=== PATIENT | female | born 1945 | race Caucasian/White ===

== ENCOUNTER → 2018-07-13 14:40 | Outpatient (CLI) | payer MEDICARE, SELFPAY ==
[2018-07-13 11:10] VITALS: BMI 27.7
[2018-07-13 16:20] LABS: Mucous, Urine 0 SEEN /hpf (<or=2+); Red Blood Cells-Urine 0 SEEN /hpf (0-5)
[2018-07-13 17:38] LABS: Color, Urine Yellow (Yellow); Glucose, Dipstick Normal (Normal); Ketone-Dipstick 5 mg/dl (Negative); Leukocyte Esterase-Dipstick 500 /ul (Negative); Nitrite-Dipstick Negative (Negative); Occult Blood-Urine 25 /ul (Negative); Protein-Dipstick 30 mg/dl (Negative); Specific Gravity, Urine 1.025 (1.002-1.030); Urine Bilirubin Dipstick Negative (Negative); Urine Clarity Cloudy (Clear); Urine Urobilinogen Normal (Normal)
[2018-07-13 17:49] LABS: Bacteria 2+ /hpf (None Seen); Calcium Oxalate Crystals Ur RARE /hpf (<or=2+); Squamous Epithelial Cells - UA 5-10 SEEN /hpf (5-10); White Blood Cells >100 SEEN /hpf (0-5)
== END ==
PROVIDERS: Family Provider Internal Medicine; PCP Internal Medicine; Referring Provider Physician Assistant Medical; Visit Provider Physician Assistant Medical
DX: N39.0 Urinary tract infection, site not specified (principal); R30.0 Dysuria
CPT/HCPCS: 81001; 87077; 87086; 87088; 87186

== ENCOUNTER → 2020-03-01 | Outpatient (CLI) | payer MEDICARE, OTHER, SELFPAY ==
--- NOTE | 2020-03-01 | BRBX_PTH ---
PATIENT: ROWENA GUAMAN LOC: [facility] U#:[id number] AGE/SX: 75/F ROOM: RE03/01/[address]: Dr. Edenilson Abraham MD : 1945 BED: DIS: 03/01/2020 SPEC #: [id number] RECD: 03/01/20 13:21 STATUS: ALBERTO REQ #: [id number] SANGEETA: 03/01/20 00:[address]: Edenilson Abraham DEPT: SURGICAL PATHOLOGY RECD BY: Rajeev Sanabria ENTERED: 03/04/20 13:23 SP TYPE: BREAST BX OTHR DR: Dr. Jeniffer Snow MD Tissues: A - Right breast, NOS B - Left breast, NOS Procedures: Surgery Specimen Level IV HEADER OPERATION: Left breast biopsy x2 PRE-OP DIAGNOSIS: Abnormal left breast ultrasound TISSUE SUBMITTED: A - Left breast tissue at 3 o'clock, B - Left breast tissue at 12 o'clock FIXATION TIME: 75 hours MICROSCOPIC DIAGNOSIS A. Left breast, 3 o'clock, core biopsy: Invasive lobular carcinoma, nuclear grade 1 (0.9 cm in greatest length). Focal adenosis. See comment. B. Left breast, 12 o'clock, core biopsy: Invasive ductal carcinoma, nuclear grade 2 (0.5 cm in greatest length). See comment. SJ:kavon 03/05/20 SJ:kavon 03/29/20 COMMENT A & B. Immunohistochemistry ([id number]) supports the above diagnosis. ER/OH/Lyt5cri studies are being performed on sections of tumor and the results from this study will be reported separately ([id number]). MICROSCOPIC DESCRIPTION Slides are reviewed. GROSS DESCRIPTION A - Received in fixative is one container labeled with the patient's name and designated left breast biopsy 3 o'clock. The specimen consists of multiple elongated fragments of garcia-yellow fibroadipose tissue that in aggregate measure 1.5 x 0.5 x 0.1 cm. The entire specimen is submitted in one cassette. B - Received in fixative is one container labeled with the patient's name and designated left breast biopsy 12 o'clock. The specimen consists of multiple elongated fragments of garcia-yellow fibroadipose tissue mixed with blood clots that in aggregate measure 2.5 x 1.5 x 0.1 cm. The entire specimen is submitted in one cassette. / SJ:rg 03/04/20 TC:0 CPT: 26287 x2
--- NOTE | 2020-03-01 | IMM_PTH ---
PATIENT: ROWENA GUAMAN LOC: [facility] U#:[id number] AGE/SX: 75/F ROOM: RE03/01/[address]: Dr. Edenilson Abraham MD : 1945 BED: DIS: 03/01/2020 SPEC #: [id number] RECD: 03/05/20 13:35 STATUS: ALBERTO REQ #: [id number] SANGEETA: 03/01/20 00:[address]: Edenilson Abraham DEPT: IMMUNOHISTOCHEMISTRY RECD BY: Odette Marroquin ENTERED: 03/05/20 13:37 SP TYPE: IMMUNO OTHR DR: Dr. Jeniffer Snow MD Tissues: A - Left breast, NOS B - Left breast, NOS Procedures: CALPONIN-1 (add) CK5-6 (add) CK8 (add) E-CAD (add) HER2 KAMRAN (add) KI-67 (add) P53 (add) CT (add) P40 (add) ER (initial) PHYSICIAN & INSTITUTION [address] [address] SPECIMEN INFORMATION: Tissue Source: A - Left breast, 3 o'clock, biopsy, B - Left breast, 12 o'clock, biopsy Clinical Info: Abnormal left breast ultrasound Specimen Number: [id number] A & B CPT code: 09061 x2, 26982 x12, 96817 x6 METHODOLOGY: Deparaffinized sections of prefer/formalin-fixed tissue or PAP/DQ stained slides are incubated with monoclonal/polyclonal antibodies/oligonucleotide probes. Localization is made via biotin free immunoperoxidase method. Appropriate controls are performed and reacted as expected. Results on target cell population are indicated in the following table: RESULTS: ANTIBODY / CLONE RESULT Block A E-Cad (ECH-6) negative CK8 (30vitzQ63) positive Calponin-1 (IV229L) negative CK5-6 (D5 & 1684) negative P40 (BC28) negative P53 (DO-7) negative Ki-67 (30-9) positive, low MORPHOMETRIC ANALYSIS ER (clone 6F11) >95%, strong intensity CT (clone 16/1E2) >95%, strong intensity Her-2Neu (clone CB11) 1+ Block B E-Cad (ECH-6) positive CK8 (45dpzjE20) positive Calponin-1 (EU601C) negative CK5-6 (D5 & 1684) negative P40 (BC28) negative P53 (DO-7) negative Ki-67 (30-9) positive, low MORPHOMETRIC ANALYSIS ER (clone 6F11) >95%, strong intensity CT (clone 16/1E2) >95%, strong intensity Her-2Neu (clone CB11) 0 The prognostic test for HER2 is performed on formalin-fixed paraffin embedded tissue. A 3+ (positive) staining pattern is defined as intense, homogeneous, complete, circumferential membranous staining in >10% of contiguous tumor cells. A similar weak (2+) staining pattern is interpreted as equivocal. CUAUHTEMOC follow-up testing is recommended for all equivocal cases. Positivity/negativity for ER/CT is reported if > or < 1% of the tumor cells are immuno- reactive, respectively. The ASCO/CAP criteria is used for scoring. Reference: Journal of Clinical Oncology, 2013; 31:3148-6293 & 2010; 16:8054-3096. Duration of fixation: 75 Hrs; Sample Adequate: Yes. These assays have not been validated on decalcified tissues. Results should be interpreted with caution given the likelihood of false negativity on decalcified specimens. These tests were developed and their performance characteristics determined by [facility]. They may not have been cleared or approved by the U.S. Food and Drug Administration. The FDA has determined that such clearance or approval is not necessary. The above immunohistochemical/dualISH markers are ordered and reviewed by the Pathologist. INTERPRETATION: A. Left breast, 3 o'clock, biopsy: Invasive lobular carcinoma, nuclear grade 1. Positive for estrogen receptors (favorable prognostic indicator). Positive for progesterone receptors (favorable prognostic indicator). Negative for overexpression of SLR2lik. B. Left breast, 12 o'clock, biopsy: Invasive ductal carcinoma, nuclear grade 2. Positive for estrogen receptors (favorable prognostic indicator). Positive for progesterone receptors (favorable prognostic indicator). Negative for overexpression of OIF1sna. SJ:kavon 03/06/20
--- NOTE | 2020-03-01 | BRBX_PTH ---
PATIENT: ROWENA GUAMAN LOC: [facility] U#:[id number] AGE/SX: 75/F ROOM: RE03/01/[address]: Dr. Edenilson Abraham MD : 1945 BED: DIS: 03/01/2020 SPEC #: [id number] RECD: 03/01/20 13:21 STATUS: ALBERTO REQ #: [id number] SANGEETA: 03/01/20 00:[address]: Edenilson Abraham DEPT: SURGICAL PATHOLOGY RECD BY: Rajeev Sanabria ENTERED: 03/04/20 13:23 SP TYPE: BREAST BX OTHR DR: Dr. Jeniffer Snow MD Tissues: A - Right breast, NOS B - Left breast, NOS Procedures: Surgery Specimen Level IV HEADER OPERATION: Left breast biopsy x2 PRE-OP DIAGNOSIS: Abnormal left breast ultrasound TISSUE SUBMITTED: A - Left breast tissue at 3 o'clock, B - Left breast tissue at 12 o'clock FIXATION TIME: 75 hours MICROSCOPIC DIAGNOSIS A. Left breast, 3 o'clock, core biopsy: Invasive lobular carcinoma, nuclear grade 1 (0.9 cm in greatest length). Focal adenosis. B. Left breast, 12 o'clock, core biopsy: Invasive lobular carcinoma, nuclear grade 2 (0.5 cm in greatest length). See comment. SJ:rg 03/05/20 COMMENT B. Immunohistochemistry ([id number]) supports the above diagnosis. ER/AZ/Xwm5jia studies are being performed on sections of tumor and the results from this study will be reported separately ([id number]). MICROSCOPIC DESCRIPTION Slides are reviewed. GROSS DESCRIPTION A - Received in fixative is one container labeled with the patient's name and designated left breast biopsy 3 o'clock. The specimen consists of multiple elongated fragments of garcia-yellow fibroadipose tissue that in aggregate measure 1.5 x 0.5 x 0.1 cm. The entire specimen is submitted in one cassette. B - Received in fixative is one container labeled with the patient's name and designated left breast biopsy 12 o'clock. The specimen consists of multiple elongated fragments of garcia-yellow fibroadipose tissue mixed with blood clots that in aggregate measure 2.5 x 1.5 x 0.1 cm. The entire specimen is submitted in one cassette. / KIMBERLY:kavon 03/04/20 TC:0 CPT: 65625 x2
[2020-03-01 12:24] VITALS: BMI 30.6
== END | disposition home or self-care (01) ==
LOC: LABSPEC 03-04 09:04
PROVIDERS: PCP Internal Medicine; Visit Provider Surgery
DX: R92.8 Other abnormal and inconclusive findings on diagnostic imaging of breast (principal)
CPT/HCPCS: 88305; 88341; 88342

== ENCOUNTER 2020-03-05 06:23 | Day surgery (SDC) | payer MEDICARE, OTHER, SELFPAY ==
[2019-07-22 12:27] VITALS: BMI 27.7
[2020-03-01 12:24] VITALS: BMI 30.6
[2020-03-05] VITALS (9 sets, daily range): BP systolic 100–135; BP diastolic 53–78; PULSE 66–71; RESP 16; TEMP 36.2–36.7; O2SAT 90–99; BMI 30.6
--- NOTE | 2020-03-05 06:47 | PCM.HP.BLA ---
Problem List (1) Screening for intestinal cancer Status: Acute History and Physical Date of Admission: 03/05/20 75-year-old female who presents for screening colonoscopy. She is also currently being evaluated for breast mass and recently has undergone a breast biopsy with pathology pending. She denies bright red blood per rectum or melena. Her last colonoscopy was 10 years ago. She has no family history of breast cancer.
--- NOTE | 2020-03-05 06:55 | PCM.HP.STD ---
Problem List (1) Screening for intestinal cancer Status: Acute History of Present Illness Date of Admission: 03/05/20 The patient is a 75 year old F presents for screening colonoscopy today. No bright red blood per rectum or melena. He has no family history of colon cancer. Most recent colonoscopy was 10 years ago. I am concurrently evaluating her for breast mass and were awaiting breast biopsy results. Past Medical History Medical History: Medical History (Last Reviewed 03/01/20 @ 12:20 by Melani Leal) Abnormal mammogram of left breast (Acute) R92.8 Abnormal mammogram of left breast R92.8 Arthritis M19.90 Hemorrhoids K64.9 History of back problems Allergies amoxicillin [From Augmentin] Allergy (Verified 03/05/20 06:45) Other bee venom protein (honey bee) Allergy (Verified 03/05/20 06:45) Swelling clavulanic acid [From Augmentin] Allergy (Verified 03/05/20 06:45) Other sulfamethoxazole [From Bactrim] Allergy (Verified 03/05/20 06:45) Other trimethoprim [From Bactrim] Allergy (Verified 03/05/20 06:45) Other naproxen [From Naprosyn] Adverse Reaction (Intermediate, Verified 03/05/20 06:45) GI Upset Home Medications: Ambulatory Orders Medication Instructions Recorded Losartan Potassium 25 mg PO QHS 05/14/17 sertraline 50 mg tablet 100 mg PO QHS tab 03/01/20 Surgical History: Surgical History (Last Updated 03/01/20 @ 12:23 by Melani Leal) History of back surgery Z98.890 History of bilateral knee replacement Z96.653 History of open sigmoidectomy Z98.890, Z90.49 history bilateral foot surgery history bilateral reconstruction both hands Smoking Status: Former smoker Tobacco Use: Non-smoker Review of Systems Constitutional: Denies: Fever Cardiovascular: Denies: Chest Pain Respiratory: Denies: Cough, Shortness of Breath Gastrointestinal: Denies: Abdominal Pain, Hematochezia, Melena VTE Information - Inpt Only VTE Present on Admission: No - Physical Exam Vitals/I&O's: Body Mass Index (BMI) 30.6 General: Alert, Oriented x3, Cooperative Oral: Moist Mucosa Lungs: Clear to auscultation, Normal air movement Cardiovascular: Regular rate, Regular Rhythm Abdomen: Bowel Sounds Present, Soft, Non Tender Extremities: No Calf Tenderness Neurological: - - Normal cognition Psych/Mental Status: Normal Affect Assessment/Plan All Active Problems (Last Reviewed 03/01/20 @ 12:20 by Melani Leal) Screening for intestinal cancer (Acute) Abnormal ultrasound of breast (Acute) Abnormal mammogram of left breast (Acute) 75-year-old female presents via open access for screening colonoscopy with her most recent colonoscopy 10 years ago. She is aware of the technique, benefit, risk, alternatives. She has had an opportunity to ask and have questions answered. She is scheduled and ready to proceed. Edenilson Abraham M.D., F.A.C.S.
[2020-03-05] MEDS: Lactated Ringers 1,000 ML 100 ML IV (07:07)
--- NOTE | 2020-03-05 07:30 | COLBX_PTH ---
PATIENT: ROWENA GUAMAN LOC: EN U#:[id number] AGE/SX: 75/F ROOM: RE03/05/[address]: Dr. Edenilson Abraham MD : 1945 BED: DIS: 03/05/2020 SPEC #: [id number] RECD: 03/05/20 12:01 STATUS: ALBERTO DESTIN #: [id number] SANGEETA: 03/05/20 07:[address]: Edenilson Abraham DEPT: SURGICAL PATHOLOGY RECD BY: Eladio Duarte ENTERED: 03/05/20 13:16 SP TYPE: COLON BX OTHR DR: Dr. Jeniffer Snow MD Tissues: Rectum, NOS Procedures: Surgery Specimen Level IV HEADER OPERATION: Colonoscopy - open access (MOD) PRE-OP DIAGNOSIS: Screening TISSUE SUBMITTED: Rectal polyp biopsy MICROSCOPIC DIAGNOSIS Rectal polyp, biopsy: Benign mucosal polyp. See comment. AM:kavon 03/06/20 COMMENT Neither hyperplastic nor adenomatous change is identified. Clinical correlation is suggested. MICROSCOPIC DESCRIPTION Slides are reviewed. GROSS DESCRIPTION Received in fixative is one container labeled with the patient's name and designated rectal polyp biopsy. The specimen consists of one irregular fragment of light garcia soft tissue that measures 0.4 x 0.4 x 0.1 cm. The specimen is totally submitted in one cassette. / SJ:rg 03/05/20 TC:5 CPT: 42045
--- NOTE | 2020-03-05 07:53 | OP.CCLET_ITS ---
03/05/2020 Jeniffer Snow [address] [place] [address] Re : Colonoscopy procedure for Kasey Hilton Dear Dr. Snow This procedure was performed on Thursday, March 05, 2020. My impressions and recommendations are as follows: Impressions : - Non-thrombosed internal hemorrhoids and internal hemorrhoids that prolapse with straining, but require manual replacement into the anal canal (Grade III) found on digital rectal exam. - Two 3 mm polyps in the rectum, removed with a cold biopsy forceps. Resected and retrieved. - Patent end-to-side colo-colonic anastomosis, characterized by healthy appearing mucosa. - Diverticulosis in the descending colon. Recommendations : - Discharge patient to home. - Resume previous diet. - Continue present medications. - Telephone my office for pathology results in 1 week. - No repeat colonoscopy due to current age (66 years or older). My findings are described in the full procedure note, which is enclosed. If I can be of further assistance, please feel free to contact me at Doctor phone number(s): Work: . Sincerely, Edenilson Abraham MD 03/05/2020 7:53:13 AM This report has been signed electronically.
--- NOTE | 2020-03-05 07:53 | OP.COLON_ITS ---
Patient Name: Kasey Hilton Procedure Date: 03/05/2020 7:27 AM Date of : 1945 Age: 75 Procedure: Colonoscopy Indications: Screening for colorectal malignant neoplasm Providers: Edenilson Abraham MD Referring MD: Jeniffer Snow Medicines: Midazolam 3 mg IV, Meperidine 100 mg IV Patient Profile: Last Colonoscopy: 10 years ago. Complications: No immediate complications. Procedure: Pre-Anesthesia Assessment: - Prior to the procedure, a History and Physical was performed, and patient medications and allergies were reviewed. The patient's tolerance of previous anesthesia was also reviewed. The risks and benefits of the procedure and the sedation options and risks were discussed with the patient. All questions were answered, and informed consent was obtained. Prior Anticoagulants: The patient has taken no previous anticoagulant or antiplatelet agents. ASA Grade Assessment: II - A patient with mild systemic disease. After reviewing the risks and benefits, the patient was deemed in satisfactory condition to undergo the procedure. After I obtained informed consent, the scope was passed under direct vision. Throughout the procedure, the patient's blood pressure, pulse, and oxygen saturations were monitored continuously. The Colonoscope was introduced through the anus and advanced to the cecum, identified by appendiceal orifice and ileocecal valve. The colonoscopy was performed without difficulty. The patient tolerated the procedure well. The quality of the bowel preparation was adequate to identify polyps. The ileocecal valve and the appendiceal orifice were photographed. Moderate Sedation: Moderate (conscious) sedation was personally administered by the endoscopist. The following parameters were monitored: oxygen saturation, heart rate, blood pressure, and response to care. Total physician intraservice time was 15 minutes. Scope In: 7:35:53 AM Scope Withdrawal Time 0 hours 7 minutes 52 seconds Scope Out: 7:46:08 AM Total Procedure Duration Time 0 hours 10 minutes 15 seconds Findings: The digital rectal exam findings include non-thrombosed internal hemorrhoids and internal hemorrhoids that prolapse with straining, but require manual replacement into the anal canal (Grade III). Pertinent negatives include normal sphincter tone. A 3 mm polyp was found in the rectum. The polyp was sessile. The polyp was removed with a cold biopsy forceps. Resection and retrieval were complete. There was evidence of a prior end-to-side colo-colonic anastomosis in the distal sigmoid colon. This was patent and was characterized by healthy appearing mucosa. A few diverticula were found in the descending colon. Impression: - Non-thrombosed internal hemorrhoids and internal hemorrhoids that prolapse with straining, but require manual replacement into the anal canal (Grade III) found on digital rectal exam. - Two 3 mm polyps in the rectum, removed with a cold biopsy forceps. Resected and retrieved. - Patent end-to-side colo-colonic anastomosis, characterized by healthy appearing mucosa. - Diverticulosis in the descending colon. Recommendation: - Discharge patient to home. - Resume previous diet. - Continue present medications. - Telephone my office for pathology results in 1 week. - No repeat colonoscopy due to current age (66 years or older). Procedure Code(s): --- Professional --- 02263, Colonoscopy, flexible; with biopsy, single or multiple 22048, 59, Moderate sedation services provided by the same physician or other qualified health children's zoo caretaker performing the diagnostic or therapeutic service that the sedation supports, requiring the presence of an independent trained observer to assist in the monitoring of the patient's level of consciousness and physiological status; initial 15 minutes of intraservice time, patient age 5 years or older Diagnosis Code(s): --- Professional --- Z12.11, Encounter for screening for malignant neoplasm of colon K64.2, Third degree hemorrhoids K62.1, Rectal polyp Z98.0, Intestinal bypass and anastomosis status K57.30, Diverticulosis of large intestine without perforation or abscess without bleeding CPT copyright 2017 [employer]. All rights reserved. The codes documented in this report are preliminary and upon corner former review may be revised to meet current compliance requirements. Edenilson Abraham MD 03/05/2020 7:53:13 AM This report has been signed electronically. Number of Addenda: 0 Note Initiated On: 03/05/2020 7:27 AM
== END 2020-03-05 09:20 | disposition home or self-care (01) ==
LOC: EN 06:23 → AC 06:24
PROVIDERS: PCP Internal Medicine; Referring Provider Internal Medicine; Visit Provider Surgery
PROC: 0DJD8ZZ Inspection of Lower Intestinal Tract, Via Natural or Artificial Opening Endoscopic (ICD-10-PCS; CPT 45378; principal; 2020-03-05 07:25)
DX: Z12.11 Encounter for screening for malignant neoplasm of colon (principal); K62.1 Rectal polyp; K57.30 Diverticulosis of large intestine without perforation or abscess without bleeding; K64.2 Third degree hemorrhoids; M19.90 Unspecified osteoarthritis, unspecified site; Z87.891 Personal history of nicotine dependence; Z11.59 Encounter for screening for other viral diseases; Z98.0 Intestinal bypass and anastomosis status
CPT/HCPCS: 45380; 87635; 88305; 99152; 99153; C9803; J7120; U0003

== ENCOUNTER → 2020-03-11 | Outpatient (CLI) | payer MEDICARE, OTHER, SELFPAY ==
[2020-03-07 07:57] VITALS: BMI 30.2
[2020-03-07 14:08] LABS: Creatinine, Serum 1.06 mg/dL (0.55-1.02); EST Glomerular Filtration Rate 54 mL/min (>60); Est Glom Filt Rate - Afr Amer 65 mL/min (>60)
--- NOTE | 2020-03-11 10:35 | MRI_ITS ---
STUDY: BILATERAL BREAST MR WITHOUT AND WITH CONTRAST REASON FOR EXAM: Female, 75 years old. 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 TECHNIQUE: Multi-sequence multi-echo imaging of both breasts was performed with a dedicated breast coil. T1-weighted and T2-weighted images were performed before the administration of contrast. T1-weighted images were also performed after the administration of IV Dotarem 18ml without complications. COMPARISON: Screening mammograms dated 02/19/2020, diagnostic left mammogram and left breast ultrasound dated 02/27/2020. FINDINGS: RIGHT BREAST: The breast tissue is fatty with minimal background enhancement. No abnormal enhancing masses or areas of non mass enhancement are present. LEFT BREAST: The breast tissue is fatty with minimal background enhancement. 5 mm in diameter enhancing lobular mass at the 12 o''clock position 5.3 cm behind the nipple corresponding to the mass seen on the diagnostic mammogram and ultrasound. I was not given the results of both of the left breast biopsies. However, this lesion is very suspicious for carcinoma. Focal area of non mass enhancement at the 3 o''clock position measuring approximately 13 mm x 16 mm corresponding to the area of architectural distortion on the diagnostic mammogram and the area of shadowing on the dedicated left breast ultrasound. This area is also highly suspicious for malignancy. Since these areas of enhancement are in different quadrants, this is compatible with multicentric breast cancer. No abnormal axillary nodes are identified in either breast. There is no abnormality in the visualized regions of the chest or liver. MRI/Breast Bilateral W/O and W IMPRESSION: 2 areas of enhancement in the left breast corresponding to the diagnostic mammogram and dedicated left breast ultrasound compatible with multicentric breast cancer, as described above. No other significant abnormality in either breast. CATEGORY: BIRADS Category 6: Known Biopsy-Proven Malignancy - Appropriate Action Should Be Taken. A letter regarding these results will be sent to the patient by the facility within 30 days. Electronically Signed: Tono Blank MD at 20:00 EDT , Service support ,
[2020-03-11 10:47] VITALS: BP 150/62; PULSE 78; RESP 16; TEMP 36.9; O2SAT 97; BMI 30.2
[2020-03-11] MEDS: 0.9% Normal Saline 1,000 ML 500 ML IV (10:50)
== END | disposition home or self-care (01) ==
LOC: MRI 10:35
PROVIDERS: PCP Internal Medicine; Referring Provider Surgery; Visit Provider Surgery
DX: C50.919 Malignant neoplasm of unspecified site of unspecified female breast (principal); D05.02 Lobular carcinoma in situ of left breast
CPT/HCPCS: 96360; 96361; 36415; 77049; 82565; A9575; J7030; A4216; C8908

== ENCOUNTER 2020-04-01 11:00 | Inpatient (IN) | payer MEDICARE, OTHER, SELFPAY ==
[2020-03-18 09:44] VITALS: BMI 29.7
[2020-03-19 12:35] VITALS: BMI 29.7
--- NOTE | 2020-03-26 10:29 | EKG12_ITS ---
Test Reason : PRE OP Blood Pressure : / mmHG Vent. Rate : 086 BPM Atrial Rate : 086 BPM P-R Int : 166 ms QRS Dur : 072 ms QT Int : 364 ms P-R-T Axes : 049 -70 067 degrees QTc Int : 435 ms Normal sinus rhythm Left axis deviation Poor R wave progression Abnormal ECG Confirmed by CHANTELL BARONE, DEBORAH ([id number]), greeting card editor KEO SOLIS ([id number]) on 03/27/2020 8:56:14 AM Referred By: Edenilson Abraham Confirmed By:DEBORAH ABDUL MD
--- NOTE | 2020-03-26 10:35 | RAD_ITS ---
STUDY: X-RAY CHEST REASON FOR EXAM: Female, 75 years old. PRE OP DOUBLE MASTECTOMY TECHNIQUE: PA and lateral views of the chest. COMPARISON: None. FINDINGS: The lungs are clear and expanded. There is no demonstrated pleural abnormality. Normal size heart. Normal mediastinum and gail. Normal visualized pulmonary arteries. There is atherosclerotic tortuosity of the aortic arch and descending thoracic aorta. There is demineralization of the osseous structures. Normal visualized ribs, clavicles, and shoulders. There is no demonstrated abnormality of the visualized soft tissue structures of the upper abdomen. RAD/Chest PA and Lateral IMPRESSION: No acute abnormality is seen. Electronically Signed: Derrell Jensen, at 13:02 EST , Service support ,
[2020-03-26 11:08] LABS: Hematocrit 46.4 % (37-47); Hemoglobin 15.5 g/dL (12.0-15.0); Mean Corp Hgb Conc 33.4 g/dL (32-36); Mean Corpuscular Hgb 30.5 pg (27.0-32.0); Mean Corpuscular Volume 91.3 fL (81-99); Mean Platelet Vol. 10.4 fl (6.2-12.0); Platelet Count 279 K/mm3 (150-450); RBC Distribution Width SD 40.7 fl (35.1-43.9); Red Blood Count 5.08 M/mm3 (4.2-5.4); White Blood Count 5.5 K/mm3 (4.4-11.0)
[2020-03-26 12:32] LABS: ALB/GLOB Ratio 0.9 RATIO (0.9-2.4); AST(SGOT) 27 U/L (15-37); Alanine Aminotransfer ALT/SGPT 44 U/L (13-56); Albumin, Serum 3.8 g/dL (3.2-5.0); Alkaline Phosphatase 105 U/L (45-117); Anion Gap 6 (5-15); BUN 16 mg/dL (7-18); BUN/Creat Ratio 13.7 RATIO (10-20); Calcium,Total 9.6 mg/dL (8.5-10.1); Chloride 108 mmol/L (98-107); Creatinine, Serum 1.17 mg/dL (0.55-1.02); EST Glomerular Filtration Rate 48 mL/min (>60); Est Glom Filt Rate - Afr Amer 58 mL/min (>60); Globulin 4.1 g/dL (2.2-4.2); Glucose 119 mg/dL (74-106); Potassium 4.2 mmol/L (3.5-5.1); Protein, Total 7.9 g/dL (6.4-8.2); Sodium Level 139 mmol/L (136-145)
[2020-04-01] VITALS (14 sets, daily range): BP systolic 137–172; BP diastolic 49–99; PULSE 62–99; RESP 14–18; TEMP -12.6–36.9; O2SAT 91–100; BMI 29.8
--- NOTE | 2020-04-01 | AXNB_PTH ---
PATIENT: ROWENA GUAMAN LOC: MS3 U#:[id number] AGE/SX: 75/F ROOM: WI322 RE04/01/[address]: Dr. Edenilson Abraham MD : 1945 BED: 1 DIS: 04/02/2020 SPEC #: [id number] RECD: 04/01/20 08:39 STATUS: ALBERTO DESTIN #: [id number] SANGEETA: 04/01/20 00:[address]: Edenilson Abraham DEPT: SURGICAL PATHOLOGY RECD BY: Odette Marroquin ENTERED: 04/01/20 09:50 SP TYPE: AX NODE BX OTHR DR: Dr. Jeniffer Snow MD Tissues: A - Axillary lymph node, NOS B - Breast, NOS C - Axillary tail of breast D - Breast, NOS Procedures: Frozen Section (charge) Frozen Section Add'l (chg) Surgery Specimen Level V Surgery Specimen Level HEADER OPERATION: Left mastectomy with axillary blue dye, left sentinel node biopsy PRE-OP DIAGNOSIS: Malignant neoplasm of upper outer quadrant left breast, ER positive TISSUE SUBMITTED: A - Left axillary sentinel nodes, FS, B - Left breast, suture villegas lateral aspect, C - Left axillary content, D - Right breast, suture villegas lateral aspect FROZEN SECTION DIAGNOSIS A. Left axillary sentinel nodes, biopsy: One out of three lymph nodes, positive for macrometastatic carcinoma. SJ:kaovn 04/01/20 MICROSCOPIC DIAGNOSIS A. Left axillary sentinel lymph nodes, biopsy: One out of three lymph nodes positive for macrometastatic carcinoma. See comment. B. Left breast, mastectomy: Invasive lobular carcinoma. Invasive ductal carcinoma. See cancer checklist below. C. Left axillary contents, regional lymphadenectomy: One out of seven lymph nodes with macrometastatic carcinoma. See comment. D. Right breast, mastectomy: Mild fibrocystic change. No evidence of malignancy. AM:kavon 04/08/20 COMMENT A. The metastatic focus measures 2.2 mm in greatest dimension and consists of metastatic lobular carcinoma. C. The metastatic focus measures 7.0 mm in greatest dimension and consists of metastatic lobular carcinoma. INVASIVE BREAST CARCINOMA SUMMARY (PART B) Procedure: Mastectomy Specimen: Type: Total breast Size: 21 x 18 x 5 cm Laterality: Left Invasive Tumor (Invasive lobular carcinoma): Size: 2 x 1.8 x 1.3 cm Focality: Single focus Histologic type: Invasive lobular carcinoma. Histologic grade (Jose grade): Glandular/tubular differentiation score: 3 Nuclear pleomorphism score: 2 Mitotic count score: 1 Overall grade: 2 (score of 6) Lymphvascular invasion: Not identified Margin: Tumor extends to inferior margin of excision (positive margin). The area of involvement measures approximately 4.0 millimeters Invasive Tumor (Invasive ductal carcinoma): Size 5 x 5 x 3 millimeters Focality: Single focus Histologic type: Invasive ductal carcinoma. Histologic grade (Jose grade): Glandular/tubular differentiation score: 1 Nuclear pleomorphism score: 2 Mitotic count score: 1 Overall grade: 1 (score of 5) Lymphvascular invasion: Not identified Margin: Tumor is located 2 cm from closest (posterior) margin of excision. Lobular Carcinoma In Situ: Not identified Ductal Carcinoma In Situ: Not identified Tumor extension: Skin: Free of invasive carcinoma Nipple: Free of invasive carcinoma Skeletal muscle: Not present Lymph Nodes: Number of sentinel lymph nodes: 3 Total number of lymph nodes: 10 Number of lymph nodes involved by macrometastatic carcinoma: 2 of 10 Number of lymph nodes involved by micrometastatic carcinoma or isolated tumor cells: 0 of 10 See specimens A & C. Microcalcifications: Present in non-neoplastic tissue and invasive ductal carcinoma. Treatment Effect: Unknown Additional Pathologic Findings: Changes of previous biopsy and mild fibrocystic change. Ancillary Studies: Invasive lobular carcinoma ([id number]) ER: positive (>95%, strong intensity) MA: positive (>95%, strong intensity) Ufm2bym: negative (1+) Ancillary Studies: Invasive ductal carcinoma ([id number]) ER: positive (>95%, strong intensity) MA: positive (>95%, strong intensity) Kjz2hrm: negative (0) Clinical History: Mass PATHOLOGIC STAGE: Based on largest tumor (invasive lobular carcinoma): T1c N1a Mx The above summary is in compliance with [employer] [place] [employer] (CAP) Cancer Protocol Checklist and [place] [employer] on Cancer (AJCC) Staging Manual, 8th Ed. This case was reviewed and diagnosis discussed with Dr. Abraham on 04/09/20. Case has been reviewed in consultation with Dr. Sung who concurs with the above diagnosis. IDC:[email or web address] MICROSCOPIC DESCRIPTION Slides are reviewed. GROSS DESCRIPTION A - Received fresh for frozen section diagnosis labeled with the patient's name is a specimen designated left axillary sentinel nodes. The specimen consists of a piece of adipose tissue containing a nodule consistent with lymph node. Three lymph nodes are identified, the largest measuring 2 cm in greatest dimension. The lymph nodes are submitted in entirety for frozen section diagnosis as follows: 1 - frozen section, one lymph node, 2 - frozen section, one bisected lymph node, 3 - frozen section, one bisected lymph node. / SJ:rg 04/01/20 B - Received in fixative is one container labeled with the patient's name and designated left breast, suture villegas lateral aspect. The specimen consists of a mastectomy specimen consisting of breast tissue with overlying skin ellipse measuring 21 x 18 x 5 cm. The overlying skin ellipse measures 15 x 7 cm. The nipple is slightly retracted and measures 1 cm in greatest dimension. No skin lesion is identified. Blue dye discoloration is noted. The specimen is inked as follows: superior - blue, inferior - green, medial - red, lateral - orange, posterior - black. More dictation will follow after overnight fixation. / SJ:rg 04/01/20 Sections of the breast tissue reveal garcia, indurated masses. The larger mass is present in the lower outer portion of the breast tissue which measures 2 x 1.8 x 1.3 cm. The mass is very close to the inferior margin of the specimen. A smaller mass is present in the central portion of the breast tissue and measures 0.5 cm with adjacent biopsy cavity filled with gel material. A focal area of fat necrosis is noted surrounding this mass. This mass is 2 cm away from the closest posterior margin. The smaller mass measures 0.5 cm in greatest dimension. Sections of the rest of the specimen reveal garcia-yellow adipose cut surfaces with scant fibrous areas. Under Seal Operator sections are submitted in 15 cassettes as follows: 1 - nipple, entirely submitted, 2 - perpendicular medial and lateral margins, 3 - perpendicular superior, posterior margin and skin, 4-7 - larger tumor with closest inferior margin (please note, inferior margin also shows some black dye also including green dye), 8-12 - smaller tumor surrounding the area of fat necrosis (both tumors are submitted in entirety), 13-15 - territory sales representative sections from the other area. Sections will be submitted after additional fixation. / SJ:kavon 04/02/20 C - Received in fixative is one container labeled with the patient's name and designated left axillary contents. The specimen consists of two pieces of adipose tissue containing multiple nodules consistent with lymph nodes measuring in aggregate 8 x 7 x 3 cm. Multiple nodules consistent with lymph nodes are identified. The largest lymph node measures 3 cm in greatest dimension. The cut surface of the larger lymph node reveals fatty cut surfaces. The lymph nodes are submitted in entirety in six cassettes as follows: 1 & 2 - one bisected lymph node, 3 & 4 - one serially sectioned lymph node, 5 - two lymph nodes, 6 - three lymph nodes. Sections will be submitted after additional fixation. / SJ:kavon 04/01/20 D - Received in fixative is one container labeled with the patient's name and designated right breast, suture villegas lateral aspect. The specimen consists of a mastectomy specimen consisting of breast tissue with overlying skin ellipse measuring 19 x 21 x 5 cm. The overlying skin ellipse measures 17 x 7 cm. The nipple appears to be retracted. No skin lesion is identified. The specimen is inked as follows: superior - blue, inferior - green, medial - red, lateral - orange, posterior - black. Sections reveal yellow adipose cut surfaces with a scant, fibrous area. No mass lesion is identified. More dictation will follow after additional fixation. / SJ:kavon 04/01/20 The section of the nipple shows raised material. Under Seal Operator sections are submitted as follows: 1??nipple, entirely submitted, 2-5 - medial portion breast tissue, 6-9 - middle portion breast tissue, 1012?- lateral portion breast tissue. Sections are submitted after additional fixation. / SJ:kavon 04/02/20 TC:0 CPT: 02080, 04079 x3, 26475, 56503 x2 ADDENDUM ADDENDUM ADDENDUM ADDENDUM ADDENDUM ADDENDUM ADDENDUM ADDENDUM 04/25/2020 08:30 ADDENDUM 04/25/2020 08:30 ADDENDUM 04/25/2020 08:30 ADDENDUM 04/25/2020 08:30 ADDENDUM 04/25/2020 08:30 An order for Oncotype testing was received from Dr. Whitmore. This necessitated case review, block and slide selection by pathologist at [facility]. Breast Cancer Recurrence Score = 13 Results of the complete Oncotype testing ([facility] report) are viewable in EMR under: Reports - Pathology - Lab Pathology Report, Scanned.
--- NOTE | 2020-04-01 | IMM_PTH ---
PATIENT: ROWENA UGAMAN LOC: MS3 U#:[id number] AGE/SX: 75/F ROOM: MS322 RE04/01/[address]: Dr. Edenilson Abraham MD : 1945 BED: 1 DIS: 04/02/2020 SPEC #: [id number] RECD: 04/04/20 13:06 STATUS: ALBERTO RERamírez #: [id number] SANGEETA: 04/01/20 00:[address]: Edenilson Abraham DEPT: IMMUNOHISTOCHEMISTRY RECD BY: Odette Marroquin ENTERED: 04/04/20 13:10 SP TYPE: IMMUNO OTHR DR: Dr. Jeniffer Snow MD Tissues: A - Axillary lymph node, NOS B - Left breast, NOS C - Axillary lymph node, NOS Procedures: E-CAD (initial) CK7 (add) CK8 (add) E-CAD (add) Pankeratin (initial) Pankeratin (add) PHYSICIAN & [place] [phone] SPECIMEN INFORMATION: Tissue Source: A - Left axillary sentinel lymph nodes, B - Left breast, C - Left axillary content Clinical Info: Malignant neoplasm of upper outer quadrant left breast, ER positive Specimen Number: [id number] A1, A2, B4, B5, B7, B8, C1-C6 CPT code: 27666 x3, 77199 x15 METHODOLOGY: Deparaffinized sections of prefer/formalin-fixed tissue or PAP/DQ stained slides are incubated with monoclonal/polyclonal antibodies/oligonucleotide probes. Localization is made via biotin free immunoperoxidase method. Appropriate controls are performed and reacted as expected. Results on target cell population are indicated in the following table: RESULTS: ANTIBODY / CLONE RESULT Block A1 AE1-3 (AE1/AE3/PCK26) negative Block A2 AE1-3 (AE1/AE3/PCK26) positive CK7 (OV-TL12/30) positive E-Cad (ECH-6) negative Block B4 E-Cad (ECH-6) negative CK8 ([id number]) positive Block B5 CK8 ([id number]) positive Block B7 CK8 (88vfemB15) positive Block B8 E-Cad (ECH-6) positive CK8 (55kmmoU32) positive Block C1 AE1-3 (AE1/AE3/PCK26) negative Block C2 AE1-3 (AE1/AE3/PCK26) negative Block C3 AE1-3 (AE1/AE3/PCK26) negative Block C4 AE1-3 (AE1/AE3/PCK26) negative Block C5 AE1-3 (AE1/AE3/PCK26) positive CK7 (OV-TL12/30) positive E-Cad (ECH-6) negative Block C6 AE1-3 (AE1/AE3/PCK26) negative These tests were developed and their performance characteristics determined by [facility]. They may not have been cleared or approved by the [place] Food and Drug Administration. The FDA has determined that such clearance or approval is not necessary. The above immunohistochemical/dualISH markers are ordered and reviewed by the Pathologist. INTERPRETATION: A. Left axillary sentinel lymph nodes, biopsy: One out of three lymph nodes positive for macrometastatic carcinoma. B. Left breast: Invasive lobular carcinoma extending to inferior resection margin (positive margin). Invasive ductal carcinoma (5 millimeters). C. Left axillary content: One out of seven lymph nodes with macrometastatic carcinoma. AM:kavon 04/08/20
--- NOTE | 2020-04-01 05:39 | HP.PCM_ITS ---
Problem List (1) Cancer of left female breast Status: Acute Qualifiers: History and Physical Date of Admission: 04/01/20 Intake Visit Reasons: discuss bilateral mastectomy Chief Complaint: Breast cancer, new diagnosis Allergies amoxicillin [From Augmentin] Allergy (Verified 03/19/20 12:36) Other bee venom protein (honey bee) Allergy (Verified 03/19/20 12:36) Swelling clavulanic acid [From Augmentin] Allergy (Verified 03/19/20 12:36) Other sulfamethoxazole [From Bactrim] Allergy (Verified 03/19/20 12:36) Other trimethoprim [From Bactrim] Allergy (Verified 03/19/20 12:36) Other naproxen [From Naprosyn] Adverse Reaction (Intermediate, Verified 03/19/20 12:36) GI Upset Medications sertraline 50 mg tablet 100 mg PO QHS tab 03/01/20 [History Confirmed 03/19/20] Cannabidiol (Cbd) [Epidiolex] 100 mg PO DAILY PRN 03/18/20 [History Confirmed 03/19/20] Losartan Potassium [Cozaar] 25 mg PO DAILY 03/18/20 [History Confirmed 03/19/20] PFSH Medical History (Updated 03/19/20 @ 13:[address] Edenilson Abraham MD) Breast cancer in female (Acute) Abnormal mammogram of left breast (Acute) Arthritis (Acute) Hemorrhoids (Acute) History of back problems (Acute) Mitral valve prolapse (Acute) Surgical History (Updated 03/05/20 @ 06:[address] Edenilson Abraham MD) History of back surgery (Acute) History of bilateral knee replacement (Acute) History of open sigmoidectomy (Acute) history bilateral foot surgery (Acute) history bilateral reconstruction both hands (Acute) Family History (Updated 03/18/20 @ 09:39 by Selin Leiva) Mother Cancer Aunt Cancer Social History (Updated 03/19/20 @ 16:[address] Edenilson Abraham MD) Smoking Status: Former smoker alcohol intake: never substance use type: does not use HPI HPI HPI: ROWENA GUAMAN, is a 75 F who presents to the office today for ongoing surgical consultation regarding left breast cancer. The patient has been seen by hematology oncology Dr. Anson Whitmore and she has decided that she would like to have the left mastectomy with sentinel node and axillary dissection if indicated as well as a prophylactic right total mastectomy. Since her most recent visit she has had the hematology oncology appointment and the bilateral breast MRI. The bilateral breast MRI did not detect any new additional findings [facility] Imaging Services [address] [place] [address] Breast Bilateral W/O and W MR#: [id number] Name: ROWENA GAUMAN [facility] #:[id number] : [id number] From: Tono Blank MD PCP:Dr. Jeniffer Snow MD Status:DEP CLI Study:Breast Bilateral W/O and W Date of Exam:03/11/20 Exam#[id number] Ordering Dr: Edenilson Abraham MD STUDY: BILATERAL BREAST MR WITHOUT AND WITH CONTRAST REASON FOR EXAM: Female, 75 years old. 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 TECHNIQUE: Multi-sequence multi-echo imaging of both breasts was performed with a dedicated breast coil. T1-weighted and T2-weighted images were performed before the administration of contrast. T1-weighted images were also performed after the administration of IV Dotarem 18ml without complications. COMPARISON: Screening mammograms dated 02/19/2020, diagnostic left mammogram and left breast ultrasound dated 02/27/2020. FINDINGS: RIGHT BREAST: The breast tissue is fatty with minimal background enhancement. No abnormal enhancing masses or areas of non mass enhancement are present. LEFT BREAST: The breast tissue is fatty with minimal background enhancement. 5 mm in diameter enhancing lobular mass at the 12 o''clock position 5.3 cm behind the nipple corresponding to the mass seen on the diagnostic mammogram and ultrasound. I was not given the results of both of the left breast biopsies. However, this lesion is very suspicious for carcinoma. Focal area of non mass enhancement at the 3 o''clock position measuring approximately 13 mm x 16 mm corresponding to the area of architectural distortion on the diagnostic mammogram and the area of shadowing on the dedicated left breast ultrasound. This area is also highly suspicious for malignancy. Since these areas of enhancement are in different quadrants, this is compatible with multicentric breast cancer. No abnormal axillary nodes are identified in either breast. There is no abnormality in the visualized regions of the chest or liver. MRI/Breast Bilateral W/O and W IMPRESSION: 2 areas of enhancement in the left breast corresponding to the diagnostic mammogram and dedicated left breast ultrasound compatible with multicentric breast cancer, as described above. No other significant abnormality in either breast. CATEGORY: BIRADS Category 6: Known Biopsy-Proven Malignancy - Appropriate Action Should Be Taken. A letter regarding these results will be sent to the patient by the facility within 30 days. Electronically Signed: Tono Blank MD at 20:00 EDT , Service support , Intake Visit Reasons: LEFT BREAST BIOPSY X2 Chief Complaint: post op Breast bx X2 and cscope Human Services Program Specialist Required: No Is patient in pain?: No Allergies amoxicillin [From Augmentin] Allergy (Verified 03/07/20 07:58) Other bee venom protein (honey bee) Allergy (Verified 03/07/20 07:58) Swelling clavulanic acid [From Augmentin] Allergy (Verified 03/07/20 07:58) Other sulfamethoxazole [From Bactrim] Allergy (Verified 03/07/20 07:58) Other trimethoprim [From Bactrim] Allergy (Verified 03/07/20 07:58) Other naproxen [From Naprosyn] Adverse Reaction (Intermediate, Verified 03/07/20 07:58) GI Upset Medications Losartan Potassium 25 mg PO QHS 05/14/17 [History Confirmed 03/07/20] sertraline 50 mg tablet 100 mg PO QHS tab 03/01/20 [History Confirmed 03/07/20] PFSH Medical History (Updated 03/07/20 @ 16:[address] Edenilson Abraham MD) Breast cancer in female (Acute) Abnormal mammogram of left breast (Acute) Abnormal mammogram of left breast (Acute) Arthritis (Acute) Hemorrhoids (Acute) History of back problems (Acute) Surgical History (Updated 03/05/20 @ 06:[address] Edenilson Abraham MD) History of back surgery (Acute) History of bilateral knee replacement (Acute) History of open sigmoidectomy (Acute) history bilateral foot surgery (Acute) history bilateral reconstruction both hands (Acute) Social History (Updated 03/07/20 @ 16:[address] Edenilson Abraham MD) Smoking Status: Former smoker alcohol intake: never substance use type: does not use HPI HPI HPI: ROWENA GUAMAN, is a 75 F who presents to the office today for surgical follow-up status post ultrasound-guided needle core biopsy left breast 3:00 +3 cm and 12:00 +4 cm. A. Left breast, 3 o?clock, core biopsy:Invasive lobular carcinoma, nuclear grade 1 (0.9 cm in greatest length).Focal adenosis. B. Left breast, 12 o?clock, core biopsy:Invasive lobular carcinoma, nuclear grade 2 (0.5 cm in greatest length) E-Cad (ECH-6) negative CK8 (14ixbwB96)positive Calponin-1 (RO641S) negative CK5-6 (D5 & 1684) negative P40 (BC28)negative P53 (DO-7) negative Ki-67 (30-9) positive ER (clone 6F11) >95%, strong intensity W[place] (clone 16/1E2) >95%, strong intensity Her-2Neu ([id number]) 1+ Block BE-Cad (ECH-6) positive CK8 ([id number])positive Calponin-1 (AE934J) negative CK5-6 (D5 & 1684) negative P40 (BC28)negative P53 (DO-7) negative Ki-67 (30-9) positive, low On March 05, 2020 she had an open access screening colonoscopy. This demonstrated 2 very small polyps of the rectum which on pathology benign mucosal polyps. No further additional colonoscopies will be required. My notes from March 01, 2020 reflect the following. Intake Visit Reasons: BIRADS 4 LEFT BREAST Chief Complaint: BIRADS 4 LEFT BREAST Human Services Program Specialist Required: No Accompanied by: Is patient in pain?: No Allergies amoxicillin [From Augmentin] Allergy (Verified 07/22/19 12:22) Other clavulanic acid [From Augmentin] Allergy (Verified 07/22/19 12:22) Other sulfamethoxazole [From Bactrim] Allergy (Verified 07/22/19 12:22) Other trimethoprim [From Bactrim] Allergy (Verified 07/22/19 12:22) Other naproxen [From Naprosyn] Adverse Reaction (Intermediate, Verified 03/01/20 12:28) GI Upset Medications Losartan Potassium 25 mg PO DAILY 05/14/17 [History Confirmed 03/01/20] sertraline 50 mg tablet 100 mg PO DAILY tab 03/01/20 [History Confirmed 03/01/20] [facility] Medical History (Updated 03/01/20 @ 14:[address] Edenilson Abraham MD) Abnormal mammogram of left breast (Acute) Abnormal mammogram of left breast (Acute) Arthritis (Acute) Hemorrhoids (Acute) History of back problems (Acute) Surgical History (Updated 03/01/20 @ 12:23 by Melani Leal) History of back surgery (Acute) History of bilateral knee replacement (Acute) History of open sigmoidectomy (Acute) history bilateral foot surgery (Acute) history bilateral reconstruction both hands (Acute) Social History (Updated 03/01/20 @ 16:[address] Edenilson Abraham MD) Smoking Status: Never smoker alcohol intake: current alcohol intake frequency: 0-2 drinks per day Alcohol type: beer, hard liquor substance use type: does not use HPI HPI HPI: ROWENA GUAMAN, is a 75 F who presents to the office today for surgical consultation today regarding abnormal left mammogram and ultrasound. 75-year-old female. A1. Menarche at age 11. First child was born when she was 24. She did breast-feed. No history of previous breast biopsies. She is not on any estrogen medication. Family history is notable for mother having breast cancer at age 70. A maternal aunt her mother sister also developed breast cancer. The patient claims that she has a healthy lifestyle. She does have mitral valve prolapse. She is not requiring any anticoagulation. At the [facility] on February 27, 2020 she had diagnostic bilateral mole tomography. No asymmetry noted on the right. There was felt to be an abnormal finding left breast 12 o'clock position and architectural distortion left breast 3 o'clock position. So diagnostic left mammogram and ultrasound were obtained. Subsequently left breast 12 o'clock position middle depth there is a 0.5 x 0.4 x 0.4 cm rounded well circumscribed mass 4 cm from the nipple. Hypoechoic. BI- RADS Category 4. Left breast 3 o'clock position middle depth +3 cm there is a 1.5 x 0.8 x 1.5 cm irregular mass with indistinct margins. BI-RADS Category 4 biopsy recommended. The patient herself is not able to palpate these areas. She is nontender. It is of additional note the patient had already scheduled via open access for screening colonoscopy on March 05, 2020. HPI HPI HPI: ROWENA GUAMAN, is a 75 F who presents to the office today for ROS General General: No weight change, appetite, fatigue, colon cancer, breast cancer or weakness HEENT HEENT: No difficulty swallowing, eye injury, eye surgery, swollen glands or hoarseness Endo Endocrine: No thyroid disease, diabetes mellitus, thyroid cancer, Hair loss, heat intolerance or cold intolerance Skin Skin: No rash or changing moles Breast Breast: Yes abnormal mammogram and abnormal US; no left breast lump, right breast lump, nipple discharge, breast pain or breast enlargement Musc Musculoskeletal: Yes back problems and arthritis; no rheumatoid arthritis, gout or joint pain Cardio Cardiovascular: No murmur, pacemaker, heart disease, atrial fibrillation, high blood pressure, heart attack, heart stent, palpitations, shortness of breat with exertion or chest pain Additional Details: Mitral valve prolapse Psych Psychiatric: No depression, anxiety or hearing voices Resp Respiratory: No shortness of breath, No sleep apnea, No cough, No COPD, No asthma, No emphysema, No wheezing Gastro Gastrointestinal: No abdominal pain, No nausea or vomiting, No diarrhea, No constipation, No blood in stool, No acid reflux, Yes hemorrhoids, No ulcers, No gallbladder problem, No black,tarry stools Iam Hematologic: No blood thinners, No blood disorders, No bleeding, No anemia, No blood clots Neuro Neurologic: No system reviewed and no additional complaints, except as docu, No as per HPI, No abnormal walking, No abnormal hearing, No abnormal movements, No abnormal speech, No behavioral changes, No burning sensations, No confusion, No seizure-like activity, No unsteadiness, No dizziness, No localized weakness, No frequent falls, No headache(s), No lack of coordination, No loss of vision, No memory loss, Yes numbness, No other visual disturbances, No radiating pain, No restless legs, No sensory deficit, No fainting, Yes tingling, No tremor(s), No weakness, No other Exam Const General: cooperative, healthy appearing, comfortable, no acute distress Nutritional Appearance: average body habitus Orientation: alert, awake [facility] Head: normal to inspection Eyes General: appearance normal, both eyes and all related structures Chest Breast Palpation: No nipple discharge Other: Right breast: No focal mass. Slight retraction of the nipple. No tenderness. No nipple discharge. No axillary or clavicular adenopathy Left breast: No focal mass at 12:00. Palpable mass left breast 3:00 +4 cm. Somewhat more deeply placed. Partial deep fixation. No axillary distinct adenopathy with some mild fibrofatty fullness. Resp Effort & Inspection: normal respiratory effort Auscultation: clear to auscultation bilaterally Cardio Rate: regular rate Rhythm: regular rhythm Heart Sounds: no murmurs GI Palpation: soft Other: Nontender, no gross hepatosplenomegaly, normal bowel sounds, Musc Cervical Spine: normal cervical lordosis Skin General: no rashes or lesions noted Neuro Cognition: normal cognition Extrem General: no calf tenderness Psych Affect: normal affect Office Procedures Biopsy Provider Documentation Ultrasound-guided mammotome biopsy left breast 12 o'clock position +4 cm, dumbbell clip Ultrasound-guided Monopty biopsy left breast 3:00 +3 cm, ribbon clip Timeout and informed consent was obtained. 75-year-old female was taken to the procedure room placed supine the table and then a modified right lateral decubitus position. The left breast was prepped with Betadine. Ultrasound was performed. The small 5 mm density left breast 12 o'clock position +4 cm was identified. Under ultrasound guidance 1% lidocaine mixed 50-50 with 0.5% Marcaine was instilled as a local anesthetic. A total of 10 cc was used. A small stab incision was created. A mammotome was placed beneath this area and several cores were obtained. This is a very small lesion and identifying it was rather challenging. A dumbbell marking clip was left in place. The specimens were immediately transferred to formalin. Pressure was held for hemostasis. Attention was then drawn to the left breast 3:00 lesion. This was much more highly suspicious. Again under ultrasound guidance 1% lidocaine mixed 50-50 with 0.5% Marcaine was used as a local anesthetic. Again 10 cc was used. A 14- gauge Monopty needle was advanced to depth. 3 cores were obtained with that and then I did advanced a separate 14-gauge core biopsy device to obtain adequate sample. I then placed a ribbon clip which ended up on the lateral edge of the lesion. The cores were immediately transferred to formalin Pressure was held for hemostasis. Both areas were treated with Steri-Strips Telfa OpSite dressings and ice pack. She was given extensive activity wound care instructions. The patient is aware that I am highly suspicious particularly about the 3:00 lesion. She will return to the office next week. Edenilson Abraham M.D., F.A.C.S. Alert Quality Systems Technician Yes Biopsy Breast Biopsy: [id number] US Guidance (x 2) Assessment & Plan Problems 1. Abnormal mammogram of left breast R92.8 2. Abnormal ultrasound of breast R92.8 Plan 75-year-old female with an abnormal left mammogram and abnormal breast ultrasound with an irregular suspicious lesion left breast 3 o'clock position +3 cm and a more rounded benign-appearing lesion left breast 12 o'clock position +4 cm I discussed treatment options with the patient. I recommend an attempt at a ultrasound-guided needle core biopsy of each of these areas. She is aware of the technique, benefit, risk, alternatives. She has had an opportunity to ask and have questions answered. As noted she is scheduled for screening colonoscopy on March 05. At her request we will proceed with a attempt at ultrasound-guided biopsy left breast today. Copy: Dr. Jeniffer Abraham M.D., F.A.C.S. Orders Orders: Biopsy Today R92.8 Coding Level of Care Code 25605 Diagnoses Abnormal mammogram of left breast R92.8 Abnormal ultrasound of breast R92.8 Additional Codes Biopsy - Breast Biopsy: [id number] US Guidance (72660) HPI HPI HPI: ROWENA GUAMAN, is a 75 F who presents to the office today for ROS General General: No weight change, appetite, fatigue, colon cancer, breast cancer or weakness HEENT HEENT: No difficulty swallowing, eye injury, eye surgery, swollen glands or hoarseness Endo Endocrine: No thyroid disease, diabetes mellitus, thyroid cancer, Hair loss, heat intolerance or cold intolerance Skin Skin: No rash or changing moles Breast Breast: Yes abnormal mammogram and abnormal US; no left breast lump, right breast lump, nipple discharge, breast pain or breast enlargement Musc Musculoskeletal: Yes back problems and arthritis; no rheumatoid arthritis, gout or joint pain Cardio Cardiovascular: No murmur, pacemaker, heart disease, atrial fibrillation, high blood pressure, heart attack, heart stent, palpitations, shortness of breat with exertion or chest pain Additional Details: Mitral valve prolapse Psych Psychiatric: No depression, anxiety or hearing voices Resp Respiratory: No shortness of breath, No sleep apnea, No cough, No COPD, No asthma, No emphysema, No wheezing Gastro Gastrointestinal: No abdominal pain, No nausea or vomiting, No diarrhea, No constipation, No blood in stool, No acid reflux, Yes hemorrhoids, No ulcers, No gallbladder problem, No black,tarry stools Iam Hematologic: No blood thinners, No blood disorders, No bleeding, No anemia, No blood clots Neuro Neurologic: No system reviewed and no additional complaints, except as docu, No as per HPI, No abnormal walking, No abnormal hearing, No abnormal movements, No abnormal speech, No behavioral changes, No burning sensations, No confusion, No seizure-like activity, No unsteadiness, No dizziness, No localized weakness, No frequent falls, No headache(s), No lack of coordination, No loss of vision, No memory loss, Yes numbness, No other visual disturbances, No radiating pain, No restless legs, No sensory deficit, No fainting, Yes tingling, No tremor(s), No weakness, No other Exam Chest Breast Palpation: No nipple discharge Cardio Heart Sounds: no murmurs Assessment & Plan Problems 1. Malignant neoplasm of overlapping sites of left breast in female, estrogen receptor positive C50.812; Z17.0 Plan Today was a 30-minute [id number] consultative appointment with the patient and her . Extensive discussion was had regarding lobular carcinoma in situ the findings of positive disease at the 3 o'clock position left breast in the 12 o'clock position left breast. I had an extensive discussion regarding surgical treatment options. We discussed increased risk of multi focality and bilaterality of lobular carcinoma. She has had an opportunity to ask and have questions answered. My recommendations are to proceed with bilateral breast MRI. I am also recommending that we proceed with hematology oncology consultation. My initial impression is that she would be better served with a left mastectomy with sentinel node biopsy. She is unsure of the surgical procedure that she would like to pursue. She states that her mother had a very small breast cancer that was treated by a simple lumpectomy alone. I instructed the patient that the patient's current process is not the same as her mother's. This now is already multifocal disease. We discussed the perceived advantages of breast conservation work. I also discussed the potential cosmetic weaknesses particularly if multiple lumpectomy sites are pursued. She has had an opportunity to ask and have questions answered. She is agreeable to proceeding with a breast MRI She is agreeable to our recommendation to pursue hematology oncology consultation locally. She requests that she be seen through the hospital in the [facility]. Subsequent to the consultation and the MRI the patient will then help decipher how she would like to proceed with surgical care. I appreciate the ongoing opportunity of assisting with her surgical care Copy: Dr. Jeniffer Abraham M.D., F.A.C.S. Coding Level of Care Code Off vis,est,level 3 Diagnoses Malignant neoplasm of overlapping sites of left breast in female, estrogen receptor positive C50.812; Z17.0 Breast location: overlapping sites of breast Estrogen receptor status: positive Laterality: left HPI HPI HPI: ROWENA GUAMAN, is a 75 F who presents to the office today for Assessment & Plan Problems 1. Malignant neoplasm of upper-outer quadrant of left breast in female, estrogen receptor positive C50.412; Z17.0 Plan Plan for a left axillary blue dye and nuclear tracer sentinel lymph node biopsy with axillary dissection if indicated in addition to a left total mastectomy. Plan for a prophylactic right total mastectomy. Technique, benefit, risk, alternatives were discussed. The patient did have an opportunity to ask ask and have her questions resolved. Additional pamphlet information was provided. Discharge instructions provided. She will reschedule and we will proceed as indicated. I certainly appreciate the loan officer assistant by Dr. Anson Whitmore. She is aware that she will be following up with him postoperatively as well. Copy: Dr. Jeniffer Snow and Dr. Anson Abraham M.D., F.A.C.S. Coding Level of Care Code Off vis,est,level 2 Diagnoses Malignant neoplasm of upper-outer quadrant of left breast in female, estrogen receptor positive C50.412; Z17.0 ??Breast location: upper outer quadrant of breast ??Estrogen receptor status: positive Pathology has been corrected in the left breast 3:00 lesion is lobular carcinoma in the left breast 12:00 lesion is ductal carcinoma Additionally as the patient is added on a prophylactic right mastectomy because of the timing of surgery the left breast sentinel lymph node biopsy will be performed with blue dye and not radiotracer as this would require rescheduling of the patient because of the requirements of radiology. Edenilson Abraham M.D., F.A.C.S. Procedure Criteria Procedure Type: Elective COVID Risk Discussion: The surgeon/proceduralist and patient have discussed in detail the risk of exposure to and/or potential harm posed by the COVID-19 virus with having a surgery/procedure at this time versus the risk of delaying the surgery/procedure . It is not possible to know either the risk of delaying the surgery or procedure or chance of getting an infection with perfect accuracy, but a joint decision was made between the patient and the surgeon/proceduralist to proceed at this time with the scheduled surgery/procedure as indicated on the consent form.
--- NOTE | 2020-04-01 06:10 | PCM.DC.BS ---
Discharge Diet: No Restrictions Discharge Activity: May Not Drive - for 5-7 days or while taking narcotic pain meds., May Not Shower May shower in (days): 7 - May shower once the drains are removed and there is no ongoing leakage Lifting Restrictions: 10 pounds for 1 week. Call your doctor if your incision/area has: Continuous Slow Oozing, Sudden Increased Bleeding Call your doctor if you observe: Fever of 101 or Higher Suture Line Care: Avoid Pulling/Pushing, Avoid Pinching/Bending Remove Dressing in (days):: 1 - Remove bulky dressing tomorrow. May leave any opsite dressing for 3-4 days. Keep dressing in place until your follow-up appointment. Additional Dressing/Incision Instructions:: The dressings should be changed daily. Use a Q-tip and peroxide to cleanse at the drain exit sites. Reapply dry gauze and tape. Utilize at the bias prior wrap for compression and comfort. Empty measure and record the drain output and bring that into your next office visit. Allergies/Adverse Reactions: Allergies amoxicillin [From Augmentin] Allergy (Verified 04/01/20 06:00) Other bee venom protein (honey bee) Allergy (Verified 04/01/20 06:00) Swelling clavulanic acid [From Augmentin] Allergy (Verified 04/01/20 06:00) Other sulfamethoxazole [From Bactrim] Allergy (Verified 04/01/20 06:00) Other trimethoprim [From Bactrim] Allergy (Verified 04/01/20 06:00) Other naproxen [From Naprosyn] Adverse Reaction (Intermediate, Verified 04/01/20 06:00) GI Upset Medications to take at Discharge sertraline 50 mg tablet 100 mg PO QHS tab 03/01/20 Cannabidiol (Cbd) [Epidiolex] 100 mg PO DAILY PRN 03/18/20 Losartan Potassium [Cozaar] 25 mg PO QHS 03/18/20 Primary Care Physician: Jeniffer Snow MD [Primary Care Provider] - Please Follow Up With: Edenilson Abraham MD - [phone] When: Office appt. please schedule for Sunday 04/08
[2020-04-01] MEDS: Lactated Ringers 1,000 ML 100 ML IV (06:20)
[2020-04-01] MEDS: Isosulfan Blue 1% 5 ML Vial (08:00)
--- NOTE | 2020-04-01 11:03 | OP.PCM_ITS ---
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 1 out of 3 sentinel lymph nodes positive for macro metastasis. Request for prophylactic right mastectomy Surgery/Procedure Performed:: Left axillary sentinel lymph node biopsy with subsequent conversion of a left total mastectomy to a left modified radical mastectomy with lymph node dissection. Right total mastectomy Description of Surgical Findings:: Timeout and informed consent was obtained. 75-year-old female was taken to the operating room placed upon the table underwent general anesthesia. Clindamycin 900 mg were given intravenously. Both arms were carefully wrapped with soft roll and placed at right angles to the table. Bilateral chest were sterilely prepped and draped. The right breast was then excluded. A transverse connor ptical incision was marked to a incorporate the left nipple areolar complex and entire breast. The superior flap was subsequently created with sharp dissection and electrocautery dissection. Flaps were created I then gain access to the axilla where I could see the blue dye tracking. It is of note that prior to prepping 3 cc of isosulfan blue dye was injected in the left retroareolar area and was massaged for 3 minutes. I then performed the sentinel lymph node biopsy on the left identifying the lymphatic tracking and taking out that prolonged conglomerate of fibrofatty tissue. Hemostasis was obtained with hemoclips and electrocautery. I then pursued the inferior flap and then took the breast tissue off of the pectoralis major using electrocautery. Complete hemostasis was intact. A sutures placed in the lateral aspect of the mastectomy specimen. At this time frozen section revealed that 1 out of 3 sentinel lymph nodes were positive for macro metastatic disease. As the patient is having mastectomy and not mandatorily having radiation treatment pursued a left axillary lymph node dissection level 1 2 therefore converting the total mastectomy to a modified radical mastectomy. The axillary vein subscapularis latissimus dorsi and chest wall identified in the fibrofatty tissue and lymph node bearing tissue within this area was dissected free. Hemostasis obtained with hemoclips and electrocautery. The specimen was then submitted for final analysis. 2 stab incision was made inferior and laterally and 215 round RAKAN drains were exited. They was secured to skin with 3-0 nylon. The axillary drain was shortened. The mastectomy site was then closed with multiple interrupted 3-0 Vicryl subdermal stitches. Multiple pleating stitches approximating the flap to the chest wall and axillary were performed to eliminate space. Subsequently Steri-Strips applied. Sterile dressings reapplied gowns and gloves and equipment changed. I now addressed the right breast. A transverse ellipse so as to include the nipple areolar complex similar to the left was performed. Again similar superior and inferior flaps were created with electrocautery and then the breast tissue with the pectoralis fascia was taken off the pectoralis major on the right as had been on the left. Hemostasis was assured with electrocautery. A stab incision is made inferior laterally and a single 15 round RAKAN drain was placed. The mastectomy site was closed with multiple interrupted 3-0 Vicryl subdermal stitches and again a pleating suture technique was used to approximate the skin flaps to the chest wall. Steri-Strips Telfa bulky dry dressings by spiral wrap applied bilaterally. Sponge and instrument and needle counts were reported the surgeon to be correct. Specimens left axillary sentinel lymph nodes x3. Left axillary lymph node dissection. Left mastectomy specimen. Right total mastectomy specimen. 2 RAKAN drains on the left and one on the right. Blood loss 200 cc. The patient was taken to recovery area in satisfactory edition without apparent complication. Edenilson Abraham M.D., F.A.C.S. Type of Anesthesia:: General Anesthesiologist: Arpan Soares
[2020-04-01] MEDS: Lactated Ringers 1,000 ML 30 ML IV (13:15)
[2020-04-01] MEDS: Ondansetron 4 MG/2 ML Vial IV (13:43)
[2020-04-01] MEDS: 0.9% Saline Lock 10 ML Syringe IV ×4 (13:58→19:25)
[2020-04-01] MEDS: Morphine 2 MG/ML Syringe IV ×4 (15:27→22:20)
[2020-04-01] MEDS: Sertraline 50 MG Tablet 100 MG PO (22:13)
[2020-04-01] MEDS: Losartan Potassium 25 MG Tablet PO (22:13)
[2020-04-02 00:51] VITALS: BP 142/62; PULSE 60; RESP 18; TEMP 37; O2SAT 94
[2020-04-02] MEDS: Morphine 4 MG/ML Syringe IV (01:06)
[2020-04-02 05:30] VITALS: BP 136/68; PULSE 85; RESP 18; TEMP 36.4; O2SAT 96
--- NOTE | 2020-04-02 06:00 | PCM.PN.SRG ---
Patient Problems: Active and Suspected Problems (Last Updated 03/19/20 @ 12:35 by Justine Zayas) Cancer of left female breast (Acute) Subjective: The patient is comfortable and doing well. She has no specific complaints. She was able to spend time out of bed in a chair and going for short walks. Her nausea has resolved. - Physical Exam Vitals/I&O's: Vital Signs Temp Pulse Resp BP Pulse Ox 98.6 F 60 18 142/62 H 94 04/02/20 00:51 04/02/20 00:51 04/02/20 00:51 04/02/20 00:51 04/02/20 00:51 Oxygen Delivery Method Room Air Weight: 190 lb 11.198 oz Body Mass Index (BMI) 29.8 Intake and Output for Last 24 Hours 03/31/20 04/01/20 04/02/20 23:59 23:59 23:59 Intake Total 1806 / 2156 350 / 350 Output Total 448 / 788 340 / 340 Balance 1358 / 1368 10 General: Alert, Oriented x3 Lungs: Clear to auscultation, - - Mastectomy sites appear to be viable. Drain output appropriate. Current Medications Acetaminophen (Acetaminophen 325 Mg Tablet) 650 mg PO Q6H PRN PRN PRN Reason: Pain Score 1-10 Hydrocodone Bitart/Acetaminophen (Hydrocodone Bitartrate/Apap 5/325 Tablet) 1 - 2 tablet PO Q4H PRN PRN PRN Reason: Pain Score 1-10 Lactated Ringer's () 1,000 mls @ 30 mls/hr IV .[id number] COUNT INCLUDES THE [facility] Last Admin: 04/01/20 13:15 Dose: 30 mls/hr Documented by: Losartan Potassium (Losartan Potassium 25 Mg Tablet) 25 mg PO QHS COUNT INCLUDES THE [facility] Last Admin: 04/01/20 22:13 Dose: 25 mg Documented by: Morphine Sulfate (Morphine 2 Mg/Ml Syringe) 2 - 4 mg IV Q1H PRN PRN PRN Reason: Pain Score 1-10 Last Admin: 04/01/20 22:20 Dose: 2 mg Documented by: Morphine Sulfate (Morphine 4 Mg/Ml Syringe) 2 - 4 mg IV Q1H PRN PRN PRN Reason: Pain Score 1-10 Last Admin: 04/02/20 01:06 Dose: 4 mg Documented by: Ondansetron HCl (Ondansetron 4 Mg/2 Ml Vial) 4 mg IV Q8H PRN PRN PRN Reason: NAUSEA Last Admin: 04/01/20 13:43 Dose: 4 mg Documented by: Sertraline HCl (Sertraline 50 Mg Tablet) 100 mg PO QHS SANTI Last Admin: 04/01/20 22:13 Dose: 100 mg Documented by: Sodium Chloride (0.9% Saline Lock 10 Ml Syringe) 10 - 40 ml IV UD PRN PRN Reason: SALINE FLUSH Last Admin: 04/01/20 19:25 Dose: 10 ml Documented by: Medical Necessity - Tobacco Use Smoking Status: Former smoker Tobacco Use: Non-smoker Assessment/Plan All Active Problems (Last Updated 03/19/20 @ 12:35 by Justine Zayas) Abnormal ultrasound of breast (Acute) Screening for intestinal cancer (Acute) Cancer of left female breast (Acute) Breast cancer in female (Acute) Abnormal mammogram of left breast (Acute) Plan for discharge today with office follow-up on Wednesday. Edenilson Abraham M.D., F.A.C.S.
[2020-04-02] MEDS: HYDROcodone Bitartrate/Apap 5/325 Tablet PO ×3 (06:14→16:59)
[2020-04-02 08:53] VITALS: BP 97/52; PULSE 70; RESP 18; TEMP 36.4; O2SAT 97
[2020-04-02 09:00] VITALS: PULSE 74
--- NOTE | 2020-04-02 10:20 | CASEMGMT ---
RN CM Face to Face with patient for initial transition planning/care coordination assessment. RN CM introduced self and role at [facility]. Patient lying in bed, alert and oriented. Patient willing to participate in assessment and is able to answer all questions appropriately. Care providers, pharmacy, and demographics verified. Patient wishes to discharge home, denies need for home health at this time. Patient states she has no further needs or concerns at this time. CM to follow for discharge planning needs that may arise. PCP: Edy Specialists: Leigh Montejo Pharmacy: [facility] retail at discharge Insurance: [facility], MMO Prescription Benefit: yes Living Will/HPOA: yes, Jitendra Hilton LNOK: Living Arrangements: Patient lives with in a bi-level home. Patient state she is independent at home and able to ambulate stairs Transportation: DME/HHC: Patient states she has shower chair, raised toilet, cane, walker, and grab bars at home. Disposition Plan: Patient to discharge home with family support and follow-up plans in place. Beena CUNNINGHAM, RN, CM
--- NOTE | 2020-04-02 13:21 | PHA.DC.MR ---
Pharmacy Service has performed discharge medication reconciliation for this patient. The patient's discharge medication list was reviewed for discrepancies and discrepancies were resolved. Home Medications sertraline 50 mg tablet 100 mg PO QHS tab 03/01/20 Cannabidiol (Cbd) [Epidiolex] 100 mg PO DAILY PRN 03/18/20 Losartan Potassium [Cozaar] 25 mg PO QHS 03/18/20 Hydrocodone Bitart/Apap 5-325 [[place] 5MG-325MG] 1 tab PO Q6H PRN PRN 3 Days #10 tab 04/02/20
--- NOTE | 2020-04-02 13:27 | NURSING ---
Reviewed drain care and site care with patient. removed dressings. cleansed around drain sites with peroxide. applied new split gauze dressings, followed by 4x4 dressings. secured with tape. applied telfa and ABD pads to the surgical incisions. reapplied the cotton roll. pt tolerated well. pt was able to demonstrate how to empty RAKAN drains. sheet given for patient to record drainage. ambulated in halls with patient twice as well. pt doing very well. denies needs or concerns.
[2020-04-02 15:11] VITALS: BP 121/61; PULSE 64; RESP 18; TEMP 36.7; O2SAT 98
== END 2020-04-02 17:47 | disposition home or self-care (01) | DRG 580 ==
LOC: SDC 11:14 → MS3 11:14
PROVIDERS: Admitting Provider Surgery; PCP Internal Medicine; Referring Provider Surgery; Visit Provider Surgery
PROC: 0HTV0ZZ Resection of Bilateral Breast, Open Approach (ICD-10-PCS; CPT 19307; principal; 2020-04-01 07:15)
DX: C50.812 Malignant neoplasm of overlapping sites of left female breast (principal); C77.3 Secondary and unspecified malignant neoplasm of axilla and upper limb lymph nodes; M19.90 Unspecified osteoarthritis, unspecified site; Z17.0 Estrogen receptor positive status [ER+]; I10 Essential (primary) hypertension; F41.9 Anxiety disorder, unspecified; F32.9 Major depressive disorder, single episode, unspecified; Z79.899 Other long term (current) drug therapy; Z87.891 Personal history of nicotine dependence
CPT/HCPCS: 36415; 71046; 80053; 85027; 87426; 88305; 88307; 88309; 88331; 88332; 88341; 88342; 93005; 99251; C9803; J7120; A4216; G0463; J2405; Q9968

== ENCOUNTER → 2020-04-08 13:27 | Outpatient (CLI) | payer MEDICARE, OTHER, SELFPAY ==
[2020-04-01 13:26] VITALS: BMI 29.8
--- NOTE | 2020-04-08 13:42 | RAD_ITS ---
EXAM DESCRIPTION: PORTABLE AP CHEST CLINICAL HISTORY: 75 years Female, SOB SINCE LAST NIGHT -- PT HAD DOUBLE MASTECTOMY WITH LYMPH NODES REMOVED LEFT SIDE x1 WEEK AGO, DRAINS REMOVED PRIOR TO IMAGING TODAY. SOB SINCE LAST NIGHT -- PT HAD DOUBLE MASTECTOMY WITH LYMPH NODES REMOVED LEFT SIDE x1 WEEK AGO, DRAINS REMOVED PRIOR TO IMAGING TODAY. COMPARISON: Previous chest obtained on 03/26/2020 FINDINGS: The patient has had a double mastectomy. The rest of the thorax is intact.The heart and mediastinum appear to be within normal limits. A patchy pneumonic infiltrate is noted in the left lung base. This was not seen previously. RAD/Chest PA and Lateral IMPRESSION: 1. Status post recent double mastectomy. 2. Patchy pneumonic infiltrate in left lung base Electronically Signed: Scott Ascencio, at 14:56 EST Tel , Service support ,
[2020-04-08 13:48] LABS: Color, Urine Yellow (Yellow); Glucose, Dipstick Normal (Normal); Ketone-Dipstick 15 mg/dl (Negative); Leukocyte Esterase-Dipstick 500 /ul (Negative); Nitrite-Dipstick Positive (Negative); Occult Blood-Urine 10 /ul (Negative); Protein-Dipstick 100 mg/dl (Negative); Urine Clarity Cloudy (Clear); Urine Urobilinogen 4 mg/dl (Normal)
[2020-04-08 13:52] LABS: Urine Bilirubin Dipstick 3 mg/dL (Negative)
[2020-04-08 14:01] LABS: Bacteria 2+ /hpf (None Seen); Red Blood Cells-Urine 0-5 SEEN /hpf (0-5); Squamous Epithelial Cells - UA 50-100 SEEN /hpf (5-10); White Blood Cells 10-25 SEEN /hpf (0-5)
[2020-04-08 14:02] LABS: Mucous, Urine 1+ /hpf (<or=2+)
== END ==
PROVIDERS: PCP Internal Medicine; Visit Provider Surgery
DX: R06.02 Shortness of breath (principal); R10.2 Pelvic and perineal pain; R32 Unspecified urinary incontinence
CPT/HCPCS: 71046; 81001

== ENCOUNTER 2020-04-10 14:37 | Inpatient (IN) | payer MEDICARE, OTHER, SELFPAY ==
[2020-04-01 13:26] VITALS: BMI 29.8
[2020-04-10] VITALS (14 sets, daily range): BP systolic 127–200; BP diastolic 70–114; PULSE 66–96; RESP 14–20; TEMP 36.6–37.2; O2SAT 94–97; BMI 29.7; BMI 29.0
--- NOTE | 2020-04-10 15:02 | ED.RN ---
AVRIL WOULD LIKE UPDATES AT [phone]
--- NOTE | 2020-04-10 15:06 | EKG12_ITS ---
Test Reason : FEVER Blood Pressure : / mmHG Vent. Rate : 075 BPM Atrial Rate : 075 BPM P-R Int : 184 ms QRS Dur : 078 ms QT Int : 386 ms P-R-T Axes : 022 -01 029 degrees QTc Int : 431 ms Normal sinus rhythm Normal ECG Confirmed by CHEYENNE BARONE, [place] ([id number]), commissioning editor KEO SOLIS ([id number]) on 04/12/2020 11:09:07 AM Referred By: JENNY Confirmed By:HOUSTON QUINN MD
--- NOTE | 2020-04-10 15:06 | ED.DCSUM_ITS ---
History of Present Illness Chief Complaint: Fever Informant: Patient Narrative: 75-year-old female with past medical history of breast cancer presents with concern for fever and shortness of breath. Approximately 10 days ago patient had bilateral mastectomy. Patient following them as having difficulty breathing and felt like she had a UTI. Followed up with her surgeon who ordered a chest x-ray and urine. Patient had both a left-sided pneumonia as well as urinary tract infection. Patient was placed on Levaquin. This was 2 days ago. Patient concerned because she woke up with a fever this morning. States that because she continues to have shortness of breath. Does admit to chest pain but states it is likely secondary to her recent surgery. Denies any nausea, vomiting, diarrhea, abdominal pain. Past Medical History - Allergies and Home Meds Allergies/Adverse Reactions: Allergies amoxicillin [From Augmentin] Allergy (Verified 04/10/20 14:39) Other bee venom protein (honey bee) Allergy (Verified 04/10/20 14:39) Swelling clavulanic acid [From Augmentin] Allergy (Verified 04/10/20 14:39) Other sulfamethoxazole [From Bactrim] Allergy (Verified 04/10/20 14:39) Other trimethoprim [From Bactrim] Allergy (Verified 04/10/20 14:39) Other naproxen [From Naprosyn] Adverse Reaction (Intermediate, Verified 04/10/20 14:39) GI Upset Primary Care Physician: Jeniffer Snow MD [Primary Care Provider] - Prior records reviewed: Yes Past Medical History: - - Breast CA Surgical History: mastectomy Lives: Alone Smoking Status: Former smoker Alcohol: None Drugs: None Review of Systems General: Reports: Fever. Denies: Chills, Sweats Eyes: Denies: Visual changes - bilaterally, Diplopia ENT: Denies: Rhinorrhea, Sore throat Cardiovascular: Denies: Chest pain, Palpitations Respiratory: Reports: Dyspnea. Denies: Cough, Dyspnea on exertion Gastrointestinal: Denies: Abdominal pain, Nausea, Vomiting, Diarrhea, Melena, Hematochezia Genitourinary: Denies: Dysuria, Hematuria, Frequency Musculoskeletal: Denies: Back pain, Extremity Pain Skin: Denies: Rash, Wounds Neurological: Denies: Headache, Weakness, Numbness Physical Exam Vital Signs/Narrative: Vital Signs Temp Pulse Resp BP Pulse Ox 04/10/20 14:39 97.8 F 96 17 200/114 H 97 Inital Vital Signs reviewed: Yes General: Well nourished, Well developed, No Acute Distress Head: Normocephalic, Atraumatic Eyes: Perrl, EOMI ENT: Moist mucous membranes, No rhinorrhea Neck: Supple, Nontender Cardiovascular: Regular rate, Regular rhythm, No murmurs Respiratory: No distress, CTA bilaterally, - - Bilateral healing incisions without surrounding erythema or drainage. Abdomen: Soft, Nontender, Nondistended, Normal bowel sounds Back: Nontender, Normal Inspection Extremities: Nontender, No edema Skin: Normal color, No rash Neurological: Alert, Oriented x3, Cranial nerves II-XII grossly intact, Normal Strength, Normal Sensation Psychological: Normal affect, Normal Mood Diagnostic/Tx/Re-eval Chest X-Ray - ED: 1 View, Read by ED Physician, Read by Radiologist, - - Left basilar infiltrate Clinical Impression(s) from Imaging Studies Chest X-Ray 04/10/20 15:35 IMPRESSION: Persistent atelectasis or infiltrate at the left lung base without other acute cardiopulmonary findings or changes. A 12 x 14 mm noncalcified soft tissue nodule in the right lower lobe is present and not substantially changed from 2012 consistent with benign etiology. Stable cardiac size. Mild atherosclerotic changes of the aorta. Electronically Signed: Dixie Castañeda MD at 16:45 EST , Service support , Laboratory Data 04/10/20 04/10/20 04/10/20 15:25 15:35 15:35 WBC 9.3 RBC 4.31 Hgb 13.0 Hct 39.8 MCV 92.3 MCH 30.2 MCHC 32.7 RDW Std Deviation 41.4 RDW Coeff of Con 12.2 Plt Count 263 MPV 10.3 Immature Gran % (Auto) 1.000 H Neut % (Auto) 76.8 H Lymph % (Auto) 7.7 L [place] % (Auto) 7.1 Eos % (Auto) 6.6 H Baso % (Auto) 0.8 Absolute Neuts (auto) 7.2 Absolute Lymphs (auto) 0.72 L Nucleated RBC % 0 PT INR APTT Sodium 136 Potassium 3.8 Chloride 106 Carbon Dioxide 24.0 Anion Gap 6 BUN 15 Creatinine 1.10 H Estim Creat Clear Calc 43.63 Est GFR (MDRD) Af Amer 62 Est GFR (MDRD) Non-Af 52 L BUN/Creatinine Ratio 13.6 Glucose 109 H Lactic Acid Calcium 9.3 Total Bilirubin 0.70 AST 27 ALT 37 Alkaline Phosphatase 110 Troponin I < 0.015 Total Protein 7.2 Albumin 2.7 L Globulin 4.5 H Albumin/Globulin Ratio 0.6 L Urine Color Yellow Urine Clarity Sl. Cloudy Urine pH 6.0 Ur Specific [place] 1.020 Urine Protein 30 H Urine Glucose (UA) Normal Urine Ketones 15 H Urine Occult Blood 10 H Urine Nitrite Negative Urine Bilirubin 3 H Urine Urobilinogen 4 H Ur Leukocyte Esterase 500 H Urine RBC 0 SEEN Urine WBC 0-5 SEEN Ur Squamous Epith Cells 10-25 SEEN Urine Bacteria 1+ Urine Mucus RARE 04/10/20 04/10/20 15:35 15:35 WBC RBC Hgb Hct MCV MCH MCHC RDW Std Deviation RDW Coeff of Con Plt Count MPV Immature Gran % (Auto) Neut % (Auto) Lymph % (Auto) [place] % (Auto) Eos % (Auto) Baso % (Auto) Absolute Neuts (auto) Absolute Lymphs (auto) Nucleated RBC % PT 15.2 H INR 1.3 APTT 35.9 Sodium Potassium Chloride Carbon Dioxide Anion Gap BUN Creatinine Estim Creat Clear Calc Est GFR (MDRD) Af Amer Est GFR (MDRD) Non-Af BUN/Creatinine Ratio Glucose Lactic Acid 1.0 Calcium Total Bilirubin AST ALT Alkaline Phosphatase Troponin I Total Protein Albumin Globulin Albumin/Globulin Ratio Urine Color Urine Clarity Urine pH Ur Specific [place] Urine Protein Urine Glucose (UA) Urine Ketones Urine Occult Blood Urine Nitrite Urine Bilirubin Urine Urobilinogen Ur Leukocyte Esterase Urine RBC Urine WBC Ur Squamous Epith Cells Urine Bacteria Urine Mucus - Rhythm Strip Rhythm Strip: Sinus Rhythm Rate: 75 Ectopy: None - EKG Initial EKG Interpretation: Sinus Rhythm - Normal sinus rhythm at 75 bpm. SD and QTC within normal limits. No evidence of significant ischemia. - Medical Decision Making Patient appears well and nontoxic. Vital signs within normal limits. EKG nonischemic. Lab work within normal limits. X-ray shows a persistent left basilar infiltrate. Covid negative. Patient will receive CTA which if negative will be discharged home with Levaquin and follow-up with Dr. Abraham. Patient signed out to Dr. Diana. ED Disposition - Plan for ED Patient: Referrals: Jeniffer Snow MD [Primary Care Provider] -
--- NOTE | 2020-04-10 15:35 | RAD_ITS ---
STUDY: X-RAY CHEST REASON FOR EXAM: Female, 75 years old. PT C/O FEVER AND SOB. PT REPORTS HAVING DOUBLE MASTECTOMY MON 04/01/20. TECHNIQUE: 1 view COMPARISON: Prior chest radiograph of 10/07/2019, 03/26/2020. Prior chest CT exam of 12/30/2011. FINDINGS: Persistent infiltrate of the left lung base. Negative for substantial pleural effusion. A 14 x 12 mm soft tissue nodule is visualized in the right lower lobe Normal size heart. Normal mediastinum and gail. Normal visualized pulmonary arteries. There is atherosclerotic tortuosity of the aortic arch and descending thoracic aorta. There are diffuse degenerative changes of the visualized thoracic spine. Normal visualized ribs, clavicles, and shoulders. Status post double mastectomy. RAD/Chest 1 View (Portable) IMPRESSION: Persistent atelectasis or infiltrate at the left lung base without other acute cardiopulmonary findings or changes. A 12 x 14 mm noncalcified soft tissue nodule in the right lower lobe is present and not substantially changed from 2012 consistent with benign etiology. Stable cardiac size. Mild atherosclerotic changes of the aorta. Electronically Signed: Dixie Castañeda MD at 16:45 EST , Service support ,
[2020-04-10 16:00] LABS: Red Blood Cells-Urine 0 SEEN /hpf (0-5)
[2020-04-10 16:01] LABS: Absolute Lymphocyte Count 0.72 X10^3/uL (0.83-4.51); Absolute Neutrophil Count 7.2 X10^3/uL (2.0-7.7); Basophil# 0.07 X10^3/uL; Basophil% 0.8 % (0-1); Eosinophil# 0.61 X10^3/uL; Eosinophils% 6.6 % (0-5); Hematocrit 39.8 % (37-47); Lymphocyte # 0.72 X10^3/ul (4.0); Lymphocyte % 7.7 % (19-41); Mean Corp Hgb Conc 32.7 g/dL (32-36); Mean Corpuscular Hgb 30.2 pg (27.0-32.0); Mean Corpuscular Volume 92.3 fL (81-99); Mean Platelet Vol. 10.3 fl (6.2-12.0); Monocyte# 0.66 X10^3/uL; Monocyte% 7.1 % (0-10); NRBC Flagged by Analyzer 0 % (0-5); Neutrophil # 7.15 X10^3/uL (2.7-7.7); Neutrophil % 76.8 % (47-70); Platelet Count 263 K/mm3 (150-450); RBC Distribution Width CV 12.2 % (11.6-14.6); RBC Distribution Width SD 41.4 fl (35.1-43.9); Red Blood Count 4.31 M/mm3 (4.2-5.4); White Blood Count 9.3 K/mm3 (4.4-11.0)
[2020-04-10 16:12] LABS: International Normalized Ratio 1.3; Prothrombin Time (Protime)PT. 15.2 SECONDS (11.7-14.9)
[2020-04-10 16:13] LABS: Partial Thromboplast Time 35.9 Seconds (24.1-36.2)
[2020-04-10 16:17] LABS: Color, Urine Yellow (Yellow); Glucose, Dipstick Normal (Normal); Ketone-Dipstick 15 mg/dl (Negative); Leukocyte Esterase-Dipstick 500 /ul (Negative); Nitrite-Dipstick Negative (Negative); Occult Blood-Urine 10 /ul (Negative); Protein-Dipstick 30 mg/dl (Negative); Urine Bilirubin Dipstick 3 mg/dL (Negative); Urine Clarity Sl. Cloudy (Clear); Urine Urobilinogen 4 mg/dl (Normal)
[2020-04-10 16:18] LABS: ALB/GLOB Ratio 0.6 RATIO (0.9-2.4); AST(SGOT) 27 U/L (15-37); Alanine Aminotransfer ALT/SGPT 37 U/L (13-56); Albumin, Serum 2.7 g/dL (3.2-5.0); Alkaline Phosphatase 110 U/L (45-117); Anion Gap 6 (5-15); BUN 15 mg/dL (7-18); BUN/Creat Ratio 13.6 RATIO (10-20); Calcium,Total 9.3 mg/dL (8.5-10.1); Chloride 106 mmol/L (98-107); EST Glomerular Filtration Rate 52 mL/min (>60); Est Glom Filt Rate - Afr Amer 62 mL/min (>60); Estimated Creatinine Clearance 43.63 ml/min; Globulin 4.5 g/dL (2.2-4.2); Glucose 109 mg/dL (74-106); Potassium 3.8 mmol/L (3.5-5.1); Protein, Total 7.2 g/dL (6.4-8.2); Sodium Level 136 mmol/L (136-145)
[2020-04-10 16:22] LABS: Squamous Epithelial Cells - UA 10-25 SEEN /hpf (5-10)
[2020-04-10 16:23] LABS: Bacteria 1+ /hpf (None Seen); Mucous, Urine RARE /hpf (<or=2+); White Blood Cells 0-5 SEEN /hpf (0-5)
--- NOTE | 2020-04-10 18:48 | CT_ITS ---
We are attempting to reach an attending provider to discuss findings. An addendum with communication details will be sent when the communication is complete. STUDY: CTA CHEST REASON FOR EXAM: Female, 75 years old. FEVER WITH SOB. HAD DOUBLE MASECTOMY 11.16.20. HX OF HTN RADIATION DOSAGE (If Supplied By Facility): CTDIvol = ( 6.33 ) mGy, DLP = ( 508.43 ) mGycm TECHNIQUE: The examination was performed with the intravenous administration of IV 100mL Isovue-370. Post-processing of the angiographic images was performed, with multiplanar reformation and 3D reconstruction. Individualized dose optimization techniques were used for this CT. COMPARISON: None. FINDINGS: There are multiple central filling defects in left lower lobe lobar, segmental, and subsegmental branches. Left lower lobe consolidative and groundglass opacities are present. Mild scattered right lower lobe groundglass opacities are present. A right lower lobe granuloma is present. Normal thoracic aorta and visualized great vessels. There is no demonstrated aortic dissection. Normal heart and pericardium. Normal mediastinum. Normal hilar regions. Normal visualized trachea and bronchi. The lungs are well expanded. Normal pulmonary parenchyma. Normal pleura. Normal chest wall structures. Normal osseous structures. Normal visualized upper abdomen. CT/CTA Chest W/WO Contrast IMPRESSION: Multiple acute pulmonary emboli in the left lower lobe pulmonary arterial branches. Left lower lobe consolidative and groundglass opacities, as well as mild scattered right lower lobe groundglass opacities, likely infectious. Electronically Signed: Ronen Gonsales, at 19:59 EST Tel , Service support ,
--- NOTE | 2020-04-10 20:27 | HP.PCM_ITS ---
Problem List (1) Pulmonary embolism Status: Acute (2) Cancer of left female breast Status: Chronic Qualifiers: (3) Breast cancer in female Status: Chronic Qualifiers: Breast location: overlapping sites of breast Estrogen receptor status: positive Laterality: left Qualified Code(s): C50.812 - Malignant neoplasm of overlapping sites of left female breast; Z17.0 - Estrogen receptor positive status [ER+] (4) Abnormal mammogram of left breast Status: Chronic History of Present Illness Date of Admission: 04/10/20 Chief Complaint: Fever The patient is a 75 year old F with a significant history of left breast cancer status post bilateral mastectomy on April 01, 2020 who presents emergency department with a fever of more than 101 Fahrenheit. Patient reported that after her double mastectomy on April [address] Abraham she was diagnosed with UTI. Also outpatient chest x-ray was suspicious for pneumonia. She reports shortness of breath; spasms of her bladder; burning urination; urinary urgency and increased urinary frequency. She reports spasm in her chest and in her torso. She has been on Levaquin for 2 days. She reports shortness of breath. Past Medical History Past Medical History (Chronic Problems): Chronic Problems (Last Reviewed 04/11/20 @ 06:[address] Sonny Hermosillo MD) Cancer of left female breast (Chronic) Breast cancer in female (Chronic) Abnormal mammogram of left breast (Chronic) Medical History: Medical History (Last Reviewed 04/11/20 @ 06:[address] Sonny Hermosillo MD) Breast cancer in female (Chronic) C50.919 Abnormal mammogram of left breast (Chronic) R92.8 Arthritis M19.90 Hemorrhoids K64.9 History of back problems Mitral valve prolapse I34.1 Allergies amoxicillin [From Augmentin] Allergy (Verified 04/10/20 14:39) Other bee venom protein (honey bee) Allergy (Verified 04/10/20 14:39) Swelling clavulanic acid [From Augmentin] Allergy (Verified 04/10/20 14:39) Other sulfamethoxazole [From Bactrim] Allergy (Verified 04/10/20 14:39) Other trimethoprim [From Bactrim] Allergy (Verified 04/10/20 14:39) Other naproxen [From Naprosyn] Adverse Reaction (Intermediate, Verified 04/10/20 14:39) GI Upset Home Medications: Ambulatory Orders Medication Instructions Recorded sertraline 50 mg tablet 100 mg PO QHS tab 03/01/20 Cannabidiol (Cbd) [Epidiolex] 50 mg PO DAILY PRN 03/18/20 Losartan Potassium [Cozaar] 25 mg PO QHS 03/18/20 levofloxacin 500 mg tablet 500 mg PO DAILY #7 tab 04/08/20 Surgical History: Surgical History (Last Reviewed 04/11/20 @ 06:[address] Sonny Hermosillo MD) History of back surgery Z98.890 History of bilateral knee replacement Z96.653 History of open sigmoidectomy Z98.890, Z90.49 history bilateral foot surgery history bilateral reconstruction both hands Surgical History: mastectomy Lives: Alone Smoking Status: Former smoker Tobacco Use: Non-smoker Alcohol: None Drugs: None - *Family History Maternal Family History: Family History (Last Reviewed 04/11/20 @ 01:[address] Sonny Hermosillo MD) Mother Cancer Aunt Cancer Review of Systems Constitutional: Reports: Fever. Denies: Weight Change HEENT: Denies: Head Aches, Sinus Congestion, Sinus Drainage Cardiovascular: Reports: Chest Pain. Denies: Palpitations Respiratory: Reports: Shortness of Breath. Denies: Cough, Sputum production Gastrointestinal: Denies: Abdominal Pain, Nausea, Vomiting Genitourinary: Reports: Dysuria, Frequency, Urgency Musculoskeletal: Denies: Joint Pain, Joint Tenderness Skin: Denies: Rash, Wounds Neurological: Denies: Numbness, Tingling, Focal weakness Psychiatric: Denies: Anxiety, Depression, Homicidal Ideations, Suicidal Ideations Hematologic/ Lymphatic: Denies: Easy Bruising, Easy Bleeding VTE Information - Inpt Only VTE Present on Admission: Yes VTE Mechan Device Prophylaxis: None VTE Pharm Prophylaxis ordered?: No Reason prophylaxis not ordered:: Treatment Not Indicated - On therapeutic dose of Lovenox for acute PE. Patient Problems: Active and Suspected Problems (Last Reviewed 04/11/20 @ 06:[address] Sonny Hermosillo MD) Pulmonary embolism (Acute) - Physical Exam Vitals/I&O's: Vital Signs Temp Pulse Resp BP Pulse Ox 98.2 F 69 16 133/79 H 96 04/10/20 19:00 04/10/20 19:00 04/10/20 19:00 04/10/20 19:00 04/10/20 19:00 Oxygen Delivery Method Room Air Weight: 86.183 kg Body Mass Index (BMI) 29.7 General: Alert, Oriented x3, Cooperative HEENT: Atraumatic, PERRLA, EOMI, Normocephalic Neck: Supple, No JVD, Negative Carotid Bruits Lungs: Clear to auscultation, Normal air movement, - - Steristrips of bilateral chest; jessica wrap wrapped around chest in a circumferential manner. Cardiovascular: Regular rate, Normal S1, Normal S2, No murmurs Abdomen: Bowel Sounds Present, Soft, Non Tender Extremities: No edema, Capillary Refill Less than 3 Seconds Skin: No rashes, No breakdown Musculoskeletal: No Tenderness to Palpation of Joints or Extremities Neurological: Cranial nerves II-XII grossly intact Psych/Mental Status: Normal Affect, Appropriate Microbiology Past 72 Hours 04/10/20 16:55 Mucosa - Nose SARS-CoV-2 Antigen (Rapid) - Final Laboratory Results 04/10/20 15:25: Urine Color Yellow, Urine Clarity Sl. Cloudy, Urine pH 6.0, Ur Specific [place] 1.020, Urine Protein 30 H, Urine Glucose (UA) Normal, Urine Ketones 15 H, Urine Occult Blood 10 H, Urine Nitrite Negative, Urine Bilirubin 3 H, Urine Urobilinogen 4 H, Ur Leukocyte Esterase 500 H, Urine RBC 0 SEEN, Urine WBC 0-5 SEEN, Ur Squamous Epith Cells 10-25 SEEN, Urine Bacteria 1+, Urine Mucus RARE 04/10/20 15:35: Sodium 136, Potassium 3.8, Chloride 106, Carbon Dioxide 24.0, Anion Gap 6, BUN 15, Creatinine 1.10 H, Estim Creat Clear Calc 43.63, Est GFR (MDRD) Af Amer 62, Est GFR (MDRD) Non-Af 52 L, BUN/Creatinine Ratio 13.6, Glucose 109 H, Calcium 9.3, Total Bilirubin 0.70, AST 27, ALT 37, Alkaline Phosphatase 110, Troponin I < 0.015, Total Protein 7.2, Albumin 2.7 L, Globulin 4.5 H, Albumin/Globulin Ratio 0.6 L 04/10/20 15:35: WBC 9.3, RBC 4.31, Hgb 13.0, Hct 39.8, MCV 92.3, MCH 30.2, MCHC 32.7, RDW Std Deviation 41.4, RDW Coeff of Con 12.2, Plt Count 263, MPV 10.3, Immature Gran % (Auto) 1.000 H, Neut % (Auto) 76.8 H, Lymph % (Auto) 7.7 L, [place] % (Auto) 7.1, Eos % (Auto) 6.6 H, Baso % (Auto) 0.8, Absolute Neuts (auto) 7.2, Absolute Lymphs (auto) 0.72 L, Nucleated RBC % 0 04/10/20 15:35: PT 15.2 H, INR 1.3, APTT 35.9 04/10/20 15:35: Lactic Acid 1.0 Assessment/Plan All Active Problems (Last Reviewed 04/11/20 @ 06:[address] Sonny Hermosillo MD) Pulmonary embolism (Acute) Acute multiple PE of the left lung. Impression of chest x-ray by radiologist: Persistent atelectasis or infiltrate at the left lung base without other acute cardiopulmonary findings or changes. A 12 x 14 mm known calcified soft tissue nodule in the right lower lobe is present and not substantially changed from 2012 consistent with benign etiology. A 12 chest x-ray was independently reviewed. I agree with radiologist interpretation. Also chest CT in 2012 was reviewed; nodule was noted in the right lower lobe. Chest CTA was remarkable for multiple acute pulmonary emboli in the left lower lobe pulmonary arterial branches. Left lower consolidative and groundglass opacities as well as mild scattered right lower lobe groundglass opacity, likely infectious. Actual CTPA was independently reviewed. I agree with the latest interpretation. Per conversation between emergency department doctor and general surgeon who did bilateral mastectomy it is okay to give patient Lovenox since patient has no drain. Lovenox ordered inpatient. Consider oncology consult and pulmonary medicine consult. Patient is yet to see Oncologist for the first time Echocardiogram ordered. Acute community-acquired pneumonia Chest CTA shows extensive consolidation and groundglass opacity. On home Levaquin; continued. Would add ceftriaxone. Rapid Covid test was negative. Covid PCR test ordered. Respiratory pathogen panel ordered. However with consolidation is more likely that patient has bacterial pneumonia, gram-positive or gram-negative. Consider a pulmonary medicine consult. Will check streptococcus urine antigen and Legionella urine antigen. Follow blood cultures. MRSA nasal screen. Tylenol as needed for fever DVT prophylaxis Not indicated since patient restarted on therapeutic dose of Lovenox. Inpatient E&M: [id number] Init Hosp L3
[2020-04-10] MEDS: Enoxaparin 100 MG/ML Syringe 90 MG SC (21:09)
--- NOTE | 2020-04-10 21:49 | ECHOD_ITS ---
Reason For Study: Emboli Procedure This was a limited 2D transthoracic echocardiogram. Exam performed portable in patient room. Left Ventricle Normal LV size. Left ventricular systolic function is normal. The estimated ejection fraction is 55 %. No regional wall motion abnormalities noted. Right Ventricle Normal RV size. Normal systolic function. Atria Normal left atrium. Normal right atrium. Mitral Valve Normal mitral valve. Tricuspid Valve Normal tricuspid valve. Mild tricuspid valve insufficiency. Pulmonary artery systolic pressure is 30 mmHg. Aortic Valve Trisinus/trileaflet aortic valve. Mild focal aortic valve calcification. Pulmonic Valve Normal pulmonic valve. Great Vessels Normal aortic root. The pulmonary artery is normal size. Normal inferior vena cava. Pericardium/Pleural Epicardial fat. MMode/2D Measurements & Calculations LVIDd: 4.4 cm IVSd: 0.96 cm LA dimension: 3.3 cm LVIDs: 2.5 cm LVPWd: 1.2 cm RVDd: 3.5 cm FS: 42.6 % Doppler Measurements & Calculations TR max chastity: 260.5 cm/sec TR max P.1 mmHg Interpretation Summary Normal LV size. Left ventricular systolic function is normal. The estimated ejection fraction is 55 %. Pulmonary artery systolic pressure is 30 mmHg. Ordering Physician: Sonny Hermosillo Referring Physician: Jeniffer Snow M.D. Performed By: Cecilio Arndt RCS
[2020-04-10] MEDS: Sertraline 100 MG Tablet PO (22:16)
[2020-04-10] MEDS: Losartan Potassium 25 MG Tablet PO (22:17)
[2020-04-11] VITALS (8 sets, daily range): BP systolic 122–149; BP diastolic 62–103; PULSE 69–79; RESP 16–20; TEMP 36.6–37.5; O2SAT 94–95
[2020-04-11] MEDS: Ceftriaxone 1 GM/50 ML BAG IV (01:37)
[2020-04-11] MEDS: 0.9% Saline Lock 10 ML Syringe IV (01:39)
[2020-04-11 02:19] LABS: M R Staph aureus DNA By PCR Negative (Negative); Probe Check PASS; Specimen Processing Control PASS
[2020-04-11 08:16] LABS: Absolute Neutrophil Count 5.1 X10^3/uL (2.0-7.7); Basophil# 0.07 X10^3/uL; Basophil% 0.9 % (0-1); Eosinophil# 0.59 X10^3/uL; Eosinophils% 7.7 % (0-5); Hematocrit 36.9 % (37-47); Hemoglobin 12.1 g/dL (12.0-15.0); Lymphocyte % 15.6 % (19-41); Mean Corp Hgb Conc 32.8 g/dL (32-36); Mean Corpuscular Volume 91.6 fL (81-99); Mean Platelet Vol. 9.8 fl (6.2-12.0); Monocyte# 0.69 X10^3/uL; NRBC Flagged by Analyzer 0 % (0-5); Neutrophil # 5.06 X10^3/uL (2.7-7.7); Platelet Count 254 K/mm3 (150-450); RBC Distribution Width CV 12.2 % (11.6-14.6); RBC Distribution Width SD 41.1 fl (35.1-43.9); Red Blood Count 4.03 M/mm3 (4.2-5.4); White Blood Count 7.7 K/mm3 (4.4-11.0)
[2020-04-11] MEDS: Enoxaparin 100 MG/ML Syringe 90 MG SC ×2 (08:58→21:02)
[2020-04-11] MEDS: levoFLOXacin 500 MG Tablet PO (08:58)
[2020-04-11 09:06] LABS: Anion Gap 7 (5-15); BUN 13 mg/dL (7-18); BUN/Creat Ratio 13.5 RATIO (10-20); Chloride 104 mmol/L (98-107); Creatinine, Serum 0.96 mg/dL (0.55-1.02); EST Glomerular Filtration Rate 60 mL/min (>60); Est Glom Filt Rate - Afr Amer 73 mL/min (>60); Glucose 103 mg/dL (74-106); Potassium 3.8 mmol/L (3.5-5.1); Sodium Level 134 mmol/L (136-145)
[2020-04-11] MEDS: HYDROcodone Bitartrate/Apap 5/325 Tablet PO ×3 (10:50→23:50)
--- NOTE | 2020-04-11 12:56 | PN_ITS ---
Patient Problems: Active and Suspected Problems (Last Reviewed 04/11/20 @ 06:[address] Sonny Hermosillo MD) Pulmonary embolism (Acute) Subjective: Patient seen and examined. She was admitted with a complaint of fever. Patient had bilateral mastectomy on account of left breast cancer on April 01, 2020. She says subsequently started having a fever was diagnosed with UTI. X-ray done on outpatient basis was also concerning for pneumonia so she was started on levofloxacin. However she started having persistent spasms in her chest and the fever was persistent and not resolving so she decided to come into the ED. CTA of the chest done showed multiple acute pulmonary emboli in the left lower lobe pulmonary artery branches as well as left lower consolidative and groundglass opacities as well as mild scattered right lower lobe groundglass opacities which are likely infectious. Patient is currently on Lovenox and was started on ceftriaxone. Patient seen and examined today. She complains of spasms in her chest which causes pain. She still complains of being febrile but denies a cough, palpitations or dizziness, nausea vomiting or diarrhea. Review of systems otherwise negative. Temperature was 99.2 Fahrenheit. She has otherwise remained hemodynamically stable. Vitals/I&O's: Vital Signs Temp Pulse Resp BP Pulse Ox 99.2 F H 70 16 132/87 H 95 04/11/20 08:48 04/11/20 08:48 04/11/20 08:48 04/11/20 08:48 04/11/20 08:48 Oxygen Delivery Method Room Air Weight: 184 lb 15.485 oz Body Mass Index (BMI) 29.0 Intake and Output for Last 24 Hours 04/09/20 04/10/20 04/11/20 23:59 23:59 23:59 Intake Total 550 / 550 Balance 550 / 550 General: Alert, Oriented x3, Cooperative, No apparent distress HEENT: Atraumatic, PERRLA, EOMI, Normocephalic Oral: Dry Mucosa Neck: Supple, No JVD, Negative Carotid Bruits Lungs: - - Coarse crackles in right mid and left lower lung regions. On room air. Cardiovascular: Regular rate, Regular Rhythm, Normal S1, Normal S2, No murmurs Abdomen: Bowel Sounds Present, Soft, Non Tender, Non-Distended, No Hepato- splenomegaly Extremities: No clubbing, No cyanosis, No edema, Capillary Refill Less than 3 Seconds Skin: No rashes, No breakdown, - - dressing over torso from bilateral mastectomy Musculoskeletal: No Tenderness to Palpation of Joints or Extremities Lymphatic: No Cervical, Supraclavicular, or Inguinal Adenopathy Neurological: Cranial nerves II-XII grossly intact, Neuro grossly intact, Motor Exam 5/5 strength throughout Psych/Mental Status: Normal Affect, Appropriate, Alert and oriented to time, place, person, mood and affect Microbiology Past 72 Hours 04/10/20 15:25 Urine, Clean Catch Urine Culture - Preliminary Culture exhibits no growth. 04/11/20 00:50 Mucosa - Nasopharyngeal Respiratory Panel (PCR) - Final 04/10/20 15:25 Urine, Clean Catch Legionella Antigen - Final 04/10/20 15:25 Urine, Clean Catch Streptococcus pneumoniae Antigen (M - Final 04/10/20 16:55 Mucosa - Nose SARS-CoV-2 Antigen (Rapid) - Final Laboratory Results 04/10/20 15:25: Urine Color Yellow, Urine Clarity Sl. Cloudy, Urine pH 6.0, Ur Specific [place] 1.020, Urine Protein 30 H, Urine Glucose (UA) Normal, Urine Ketones 15 H, Urine Occult Blood 10 H, Urine Nitrite Negative, Urine Bilirubin 3 H, Urine Urobilinogen 4 H, Ur Leukocyte Esterase 500 H, Urine RBC 0 SEEN, Urine WBC 0-5 SEEN, Ur Squamous Epith Cells 10-25 SEEN, Urine Bacteria 1+, Urine Mucus RARE 04/10/20 15:35: Sodium 136, Potassium 3.8, Chloride 106, Carbon Dioxide 24.0, Anion Gap 6, BUN 15, Creatinine 1.10 H, Estim Creat Clear Calc 43.63, Est GFR (MDRD) Af Amer 62, Est GFR (MDRD) Non-Af 52 L, BUN/Creatinine Ratio 13.6, Glucose 109 H, Calcium 9.3, Total Bilirubin 0.70, AST 27, ALT 37, Alkaline Phosphatase 110, Troponin I < 0.015, Total Protein 7.2, Albumin 2.7 L, Globulin 4.5 H, Albumin/Globulin Ratio 0.6 L 04/10/20 15:35: WBC 9.3, RBC 4.31, Hgb 13.0, Hct 39.8, MCV 92.3, MCH 30.2, MCHC 32.7, RDW Std Deviation 41.4, RDW Coeff of Con 12.2, Plt Count 263, MPV 10.3, Immature Gran % (Auto) 1.000 H, Neut % (Auto) 76.8 H, Lymph % (Auto) 7.7 L, [place] % (Auto) 7.1, Eos % (Auto) 6.6 H, Baso % (Auto) 0.8, Absolute Neuts (auto) 7.2, Absolute Lymphs (auto) 0.72 L, Nucleated RBC % 0 04/10/20 15:35: PT 15.2 H, INR 1.3, APTT 35.9 04/10/20 15:35: Lactic Acid 1.0 04/11/20 00:50: COVID-19 (JENNIFER) Not Detected 04/11/20 00:50: MRSA (PCR) Negative 04/11/20 08:01: WBC 7.7, RBC 4.03 L, Hgb 12.1, Hct 36.9 L, MCV 91.6, MCH 30.0, MCHC 32.8, RDW Std Deviation 41.1, RDW Coeff of Con 12.2, Plt Count 254, MPV 9.8, Immature Gran % (Auto) 0.800, Neut % (Auto) 66.0, Lymph % (Auto) 15.6 L, [place] % (Auto) 9.0, Eos % (Auto) 7.7 H, Baso % (Auto) 0.9, Absolute Neuts (auto) 5.1, Absolute Lymphs (auto) 1.20, Nucleated RBC % 0 04/11/20 08:01: Sodium 134 L, Potassium 3.8, Chloride 104, Carbon Dioxide 23.0, Anion Gap 7, BUN 13, Creatinine 0.96, Estim Creat Clear Calc 50.00, Est GFR (MDRD) Af Amer 73, Est GFR (MDRD) Non-Af 60, BUN/Creatinine Ratio 13.5, Glucose 103, Calcium 9.0 Diagnostic Data Chest X-Ray 04/10/20 15:35 IMPRESSION: Persistent atelectasis or infiltrate at the left lung base without other acute cardiopulmonary findings or changes. A 12 x 14 mm noncalcified soft tissue nodule in the right lower lobe is present and not substantially changed from 2012 consistent with benign etiology. Stable cardiac size. Mild atherosclerotic changes of the aorta. Electronically Signed: Dixie Castañeda MD at 16:45 EST , Service support , Chest CTA 04/10/20 18:48 IMPRESSION: Multiple acute pulmonary emboli in the left lower lobe pulmonary arterial branches. Left lower lobe consolidative and groundglass opacities, as well as mild scattered right lower lobe groundglass opacities, likely infectious. Electronically Signed: Ronen Gonsales, at 19:59 EST Tel , Service support , ADDENDUM: 04/10/202023 IMPRESSION: Multiple acute pulmonary emboli in the left lower lobe pulmonary arterial branches. Left lower lobe consolidative and groundglass opacities, as well as mild scattered right lower lobe groundglass opacities, likely infectious. N.B. : The above information has been verbally conveyed by Ronen Gonsales to Dr Adalgisa MD, on 04/10/2020 20:17:18 (ET). Electronically Signed: Ronen Gonsales, at 19:59 EST Tel , Service support , Current Medications Hydrocodone Bitart/Acetaminophen (Hydrocodone Bitartrate/Apap 5/325 Tablet) 1 tablet PO Q4H PRN PRN PRN Reason: Pain Score 1-10 Last Admin: 04/11/20 10:50 Dose: 1 tablet Documented by: Enoxaparin Sodium (Enoxaparin 100 Mg/Ml Syringe) 90 mg 1 mg/kg (90 mg) SC Q12 [facility] Last Admin: 04/11/20 08:58 Dose: 90 mg Documented by: Cefepime HCl 2 gm/ Sodium (Chloride) 100 mls @ 200 mls/hr IV Q12 [facility] Last Infusion: 04/11/20 10:43 Dose: Infused Documented by: Levofloxacin (Levofloxacin 500 Mg Tablet) 500 mg PO DAILY [facility] Last Admin: 04/11/20 08:58 Dose: 500 mg Documented by: Losartan Potassium (Losartan Potassium 25 Mg Tablet) 25 mg PO QHS [facility] Last Admin: 04/10/20 22:17 Dose: 25 mg Documented by: Melatonin (Melatonin 3 Mg Tablet) 3 mg PO QHS PRN PRN PRN Reason: INSOMNIA Nutritional Formula (Lactose Free) (Ensure Enlive 120 Ml Liquid) 120 ml PO 4X/DAY [facility] Last Admin: 04/11/20 09:01 Dose: Not Given Documented by: Ondansetron HCl (Ondansetron 4 Mg/2 Ml Vial) 4 mg IV Q8H PRN PRN PRN Reason: NAUSEA/VOMITING Sertraline HCl (Sertraline 100 Mg Tablet) 100 mg PO QHS [facility] Last Admin: 04/10/20 22:16 Dose: 100 mg Documented by: Sodium Chloride (0.9% Saline Lock 10 Ml Syringe) 10 - 40 ml IV UD PRN PRN Reason: SALINE FLUSH Last Admin: 04/11/20 01:39 Dose: 10 ml Documented by: Medical Necessity - Tobacco Use Smoking Status: Former smoker Tobacco Use: Non-smoker Assessment/Plan All Active Problems (Last Reviewed 04/11/20 @ 06:[address] Sonny Hermosillo MD) Pulmonary embolism (Acute) # Acute PE of the left lung * on lovenox * CTA showed multiple acute PE in the left lower lobe pulmonary artery branches, as well as left lower consolidative and ground glass opacities, and right lower lobe mild scattered ground glass opacities * 2D echo ordered. * # Community acquired pneumonia * also has UTI. Patient was on levofloxacin at home, but symptoms persisted. * based on her history of breast cancer, making her immunosuppressed, and penicillin allergy, will start on IV cefepime, to broaden coverage until cultures result. * add on IV azithromycin for atypical coverage * blood cultures ordered; urine cultures negative. * MRSA screen was negative * COVID test was negative. * # Left breast cancer, s/p bilateral mastectomy * surgery done recently ~ 10 days ago * intact dressing in place * DVT prophylaxis; not indicated as she is on therapeutic lovenox Inpatient E&M: [id number] [facility] L3
[2020-04-11] MEDS: Sertraline 100 MG Tablet PO (21:02)
[2020-04-11] MEDS: Losartan Potassium 25 MG Tablet PO (21:02)
[2020-04-12 03:00] VITALS: PULSE 66
[2020-04-12 05:21] VITALS: BP 120/69; PULSE 60; RESP 16; TEMP 36.8; O2SAT 95
[2020-04-12] MEDS: HYDROcodone Bitartrate/Apap 5/325 Tablet PO ×2 (05:25→13:24)
[2020-04-12 07:00] VITALS: PULSE 59
[2020-04-12 07:11] VITALS: O2SAT 94
[2020-04-12 09:16] LABS: Absolute Neutrophil Count 4.6 X10^3/uL (2.0-7.7); Basophil# 0.09 X10^3/uL; Basophil% 1.2 % (0-1); Eosinophil# 0.91 X10^3/uL; Eosinophils% 11.8 % (0-5); Hematocrit 38.9 % (37-47); Hemoglobin 12.5 g/dL (12.0-15.0); Lymphocyte % 16.9 % (19-41); Mean Corp Hgb Conc 32.1 g/dL (32-36); Mean Corpuscular Hgb 30.5 pg (27.0-32.0); Mean Corpuscular Volume 94.9 fL (81-99); Mean Platelet Vol. 9.8 fl (6.2-12.0); Monocyte# 0.71 X10^3/uL; Monocyte% 9.2 % (0-10); NRBC Flagged by Analyzer 0 % (0-5); Neutrophil # 4.59 X10^3/uL (2.7-7.7); Neutrophil % 59.7 % (47-70); Platelet Count 284 K/mm3 (150-450); RBC Distribution Width CV 12.3 % (11.6-14.6); White Blood Count 7.7 K/mm3 (4.4-11.0)
[2020-04-12 09:35] LABS: Anion Gap 5 (5-15); BUN 15 mg/dL (7-18); BUN/Creat Ratio 14.2 RATIO (10-20); Calcium,Total 9.4 mg/dL (8.5-10.1); Chloride 107 mmol/L (98-107); Creatinine, Serum 1.06 mg/dL (0.55-1.02); EST Glomerular Filtration Rate 54 mL/min (>60); Est Glom Filt Rate - Afr Amer 65 mL/min (>60); Estimated Creatinine Clearance 45.28 ml/min; Glucose 101 mg/dL (74-106); Potassium 4.1 mmol/L (3.5-5.1); Sodium Level 138 mmol/L (136-145)
[2020-04-12] MEDS: Enoxaparin 100 MG/ML Syringe 90 MG SC (09:42)
[2020-04-12 10:28] VITALS: BP 147/88; PULSE 68; RESP 18; TEMP 36.3; O2SAT 96
--- NOTE | 2020-04-12 11:47 | PCM.DC ---
- Discharge Diagnoses Current Active Problems: Current Active and Chronic Problems (Last Reviewed 04/11/20 @ 06:[address] Sonny Hermosillo MD) Pulmonary embolism (Acute) Cancer of left female breast (Chronic) Breast cancer in female (Chronic) Abnormal mammogram of left breast (Chronic) You will use the following diet at home:: Cardiac Your food should be the consistency of: Regular Your liquids should be the consistency of: Regular/Thin Discharge Activity: Return to Normal Activity Weight Bearing Status: Weight bearing as tolerated Call your doctor if you observe: Fever of 101 or Higher, Shortness of breath, Dizziness, Fainting spells, Swelling in the ankles, Chest pain Instructions: Pulmonary Embolism, What Is Pneumonia? Allergies/Adverse Reactions: Allergies amoxicillin [From Augmentin] Allergy (Verified 04/10/20 14:39) Other bee venom protein (honey bee) Allergy (Verified 04/10/20 14:39) Swelling clavulanic acid [From Augmentin] Allergy (Verified 04/10/20 14:39) Other sulfamethoxazole [From Bactrim] Allergy (Verified 04/10/20 14:39) Other trimethoprim [From Bactrim] Allergy (Verified 04/10/20 14:39) Other naproxen [From Naprosyn] Adverse Reaction (Intermediate, Verified 04/10/20 14:39) GI Upset Medications to take at Discharge sertraline 50 mg tablet 100 mg PO QHS tab 03/01/20 Cannabidiol (Cbd) [Epidiolex] 50 mg PO DAILY PRN 03/18/20 Losartan Potassium [Cozaar] 25 mg PO QHS 03/18/20 levofloxacin 500 mg tablet 500 mg PO DAILY #7 tab 04/08/20 Rivaroxaban [Xarelto] 15 mg PO UD #60 tab 04/12/20 levoFLOXacin tablet [Levaquin tablet] 750 mg PO DAILY #5 tab 04/12/20 The following prescriptions were given: levoFLOXacin tablet [Levaquin tablet] 750 mg PO DAILY #5 tab Transmission Status: Pending to [facility] Rivaroxaban [Xarelto] 15 mg PO UD #60 tab Transmission Status: Pending to [facility] Primary Care Physician: Jeniffer Snow MD [Primary Care Provider] - Please follow up with your Primary Care Physician in: 1-2 weeks Test Results: Test results from this visit will be discussed in further detail at your follow-up appointment, if applicable. Please Follow Up With: Edenilson Abraham MD When: 1-2 weeks Please Follow Up With: Anson Whitmore MD When: 1-2 weeks Proposed Discharge Date: 04/12/20
--- NOTE | 2020-04-12 11:50 | PCM.DC.SUM ---
Discharge Date and Diagnosis - Problem List Patient Problems: Active and Suspected Problems (Last Reviewed 04/11/20 @ 06:[address] Sonny Hermosillo MD) Pulmonary embolism (Acute) Date of Admission: 04/10/20 Date of Discharge: 04/12/20 - Primary Discharge Diagnosis Acute Problems: Active Problems (Last Reviewed 04/11/20 @ 06:[address] Sonny Hermosillo MD) Pulmonary embolism (Acute) community acquired pneumonia breast cancer s/p bilateral mastectomy - Secondary Discharge Diagnosis Chronic Problems: Chronic Problems (Last Reviewed 04/11/20 @ 06:[address] Sonny Hermosillo MD) Cancer of left female breast (Chronic) Breast cancer in female (Chronic) Abnormal mammogram of left breast (Chronic) Hospital Course and Treatment Imaging Results: Diagnostic Data Chest X-Ray 04/10/20 15:35 IMPRESSION: Persistent atelectasis or infiltrate at the left lung base without other acute cardiopulmonary findings or changes. A 12 x 14 mm noncalcified soft tissue nodule in the right lower lobe is present and not substantially changed from 2012 consistent with benign etiology. Stable cardiac size. Mild atherosclerotic changes of the aorta. Electronically Signed: Dixie Castañeda MD at 16:45 EST , Service support , Chest CTA 04/10/20 18:48 IMPRESSION: Multiple acute pulmonary emboli in the left lower lobe pulmonary arterial branches. Left lower lobe consolidative and groundglass opacities, as well as mild scattered right lower lobe groundglass opacities, likely infectious. Electronically Signed: Ronen Gonsales, at 19:59 EST Tel , Service support , ADDENDUM: 04/10/202023 IMPRESSION: Multiple acute pulmonary emboli in the left lower lobe pulmonary arterial branches. Left lower lobe consolidative and groundglass opacities, as well as mild scattered right lower lobe groundglass opacities, likely infectious. N.B. : The above information has been verbally conveyed by Ronen Gonsales to Dr Adalgisa MD, on 04/10/2020 20:17:18 (ET). Electronically Signed: Ronen Gonsales at 19:59 EST Tel , Service support , Operations: None Procedures: 2-D Echocardiogram Summary of Care Provided: The patient is a 75 year old F with past medical history of recently diagnosed breast cancer s/p bilateral mastectomy on April 01, 2020. She was admitted through the ED on 04/10/2020 with a complaint of fever. She was diagnosed with UTI after her double mastectomy and also an outpatient chest x-ray done was suspicious for pneumonia so she was started on p.o. Levaquin. However his shortness of breath persisted and she was febrile as well so she came into the ED. CT of the chest done showed acute multiple pulmonary emboli in the left lower lobe pulmonary branches as well as the left lower lobe consolidative and groundglass opacities. UA also showed evidence of UTI. She was started on ceftriaxone IV and lovenox. 2D echo showed EF of 55%, with no regional wall motion abnormalities noted. RVSP wasn 30mmHg. She remained stable and fever resolved. Urine culture was negative, and blood cultures were also negative. She was discharged home on 04/12/2020 on PO levofloxaciin 750mg daily x 5 days, and on P.O. xarelto 15mg bid x 3 weeks, then to to continue with 20mg daily. She was counseled that she would need to be on xarelto for at least 6 months. She is to follow up with her PCP, oncologist and general surgery. Patient seen and examined. She had no complaints and felt well. Review of systems is otherwise negative. labs and vitals reviewed. Home meds reviewed and reconciled. O/E: Vital Signs Temp Pulse Resp BP Pulse Ox 97.4 F L 68 18 147/88 H 96 04/12/20 10:28 04/12/20 10:28 04/12/20 10:28 04/12/20 10:28 04/12/20 10:28 [] General: Alert, Oriented x3, Cooperative, No apparent distress HEENT: Atraumatic, PERRLA, EOMI, Normocephalic Oral: Dry Mucosa Neck: Supple, No JVD, Negative Carotid Bruits Lungs: - - Coarse crackles in right mid and left lower lung regions. On room air. Cardiovascular: Regular rate, Regular Rhythm, Normal S1, Normal S2, No murmurs Abdomen: Bowel Sounds Present, Soft, Non Tender, Non-Distended, No Hepato-splenomegaly Extremities: No clubbing, No cyanosis, No edema, Capillary Refill Less than 3 Seconds Skin: No rashes, No breakdown, - - dressing over torso from bilateral mastectomy Musculoskeletal: No Tenderness to Palpation of Joints or Extremities Lymphatic: No Cervical, Supraclavicular, or Inguinal Adenopathy Neurological: Cranial nerves II-XII grossly intact, Neuro grossly intact, Motor Exam 5/5 strength throughout Psych/Mental Status: Normal Affect, Appropriate, Alert and oriented to time, place, person, mood and affect Patient is for discharge home today. Patient Problems: Active and Suspected Problems (Last Reviewed 04/11/20 @ 06:[address] Sonny Hermosillo MD) Pulmonary embolism (Acute) - Physical Exam Vitals/I&O's: Vital Signs Temp Pulse Resp BP Pulse Ox 97.4 F L 68 18 147/88 H 96 04/12/20 10:28 04/12/20 10:28 04/12/20 10:28 04/12/20 10:28 04/12/20 10:28 Oxygen Delivery Method Room Air Weight: 184 lb 15.485 oz Body Mass Index (BMI) 29.0 Intake and Output for Last 24 Hours 04/10/20 04/11/20 04/12/20 23:59 23:59 23:59 Intake Total 650 / 890 640 / 640 Balance 650 / 890 640 / 640 Microbiology Past 72 Hours 04/10/20 15:25 Urine, Clean Catch Urine Culture - Preliminary Culture exhibits no growth. 04/11/20 00:50 Mucosa - Nasopharyngeal Respiratory Panel (PCR) - Final 04/10/20 15:25 Urine, Clean Catch Legionella Antigen - Final 04/10/20 15:25 Urine, Clean Catch Streptococcus pneumoniae Antigen (M - Final 04/10/20 16:55 Mucosa - Nose SARS-CoV-2 Antigen (Rapid) - Final Laboratory Results 04/12/20 08:59: WBC 7.7, RBC 4.10 L, Hgb 12.5, Hct 38.9, MCV 94.9, MCH 30.5, MCHC 32.1, RDW Std Deviation 43.0, RDW Coeff of Con 12.3, Plt Count 284, MPV 9.8, Immature Gran % (Auto) 1.200 H, Neut % (Auto) 59.7, Lymph % (Auto) 16.9 L, Granite % (Auto) 9.2, Eos % (Auto) 11.8 H, Baso % (Auto) 1.2 H, Absolute Neuts (auto) 4.6, Absolute Lymphs (auto) 1.30, Nucleated RBC % 0 04/12/20 08:59: Sodium 138, Potassium 4.1, Chloride 107, Carbon Dioxide 26.0, Anion Gap 5, BUN 15, Creatinine 1.06 H, Estim Creat Clear Calc 45.28, Est GFR (MDRD) Af Amer 65, Est GFR (MDRD) Non-Af 54 L, BUN/Creatinine Ratio 14.2, Glucose 101, Calcium 9.4 Current Medications Hydrocodone Bitart/Acetaminophen (Hydrocodone Bitartrate/Apap 5/325 Tablet) 1 tablet PO Q4H PRN PRN PRN Reason: Pain Score 1-10 Last Admin: 04/12/20 05:25 Dose: 1 tablet Documented by: Enoxaparin Sodium (Enoxaparin 100 Mg/Ml Syringe) 90 mg 1 mg/kg (90 mg) SC Q12 [facility] Last Admin: 04/12/20 09:42 Dose: 90 mg Documented by: Cefepime HCl 2 gm/ Sodium (Chloride) 100 mls @ 200 mls/hr IV Q12 [facility] Last Infusion: 04/12/20 10:30 Dose: Infused Documented by: Azithromycin 500 mg/ Dextrose 255 mls @ 250 mls/hr IV Q24 [facility] Last Admin: 04/12/20 10:40 Dose: 250 mls/hr Documented by: Losartan Potassium (Losartan Potassium 25 Mg Tablet) 25 mg PO QHS [facility] Last Admin: 04/11/20 21:02 Dose: 25 mg Documented by: Melatonin (Melatonin 3 Mg Tablet) 3 mg PO QHS PRN PRN PRN Reason: INSOMNIA Ondansetron HCl (Ondansetron 4 Mg/2 Ml Vial) 4 mg IV Q8H PRN PRN PRN Reason: NAUSEA/VOMITING Sertraline HCl (Sertraline 100 Mg Tablet) 100 mg PO QHS [facility] Last Admin: 04/11/20 21:02 Dose: 100 mg Documented by: Sodium Chloride (0.9% Saline Lock 10 Ml Syringe) 10 - 40 ml IV UD PRN PRN Reason: SALINE FLUSH Last Admin: 04/11/20 01:39 Dose: 10 ml Documented by: Discharge Diet: Low fat/ Low Cholesterol Discharge Activity: Return to Normal Activity Weight Bearing Status: Weight bearing as tolerated Call your doctor if you observe: Fever of 101 or Higher, Shortness of breath, Dizziness, Fainting spells, Swelling in the ankles, Chest pain Home Medications: Medications to take at Discharge sertraline 50 mg tablet 100 mg PO QHS tab 03/01/20 Cannabidiol (Cbd) [Epidiolex] 50 mg PO DAILY PRN 03/18/20 Losartan Potassium [Cozaar] 25 mg PO QHS 03/18/20 levofloxacin 500 mg tablet 500 mg PO DAILY #7 tab 04/08/20 Rivaroxaban [Xarelto] 15 mg PO UD #60 tab 04/12/20 Rivaroxaban [Xarelto] 20 mg PO DAILY #17 tab 04/12/20 levoFLOXacin tablet [Levaquin tablet] 750 mg PO DAILY #5 tab 04/12/20 Following Prescriptions Were Given to Patient: levoFLOXacin tablet [Levaquin tablet] 750 mg PO DAILY #5 tab Transmission Status: Received by [facility] Rivaroxaban [Xarelto] 15 mg PO UD #60 tab Transmission Status: Received by [facility] Rivaroxaban [Xarelto] 20 mg PO DAILY #17 tab Transmission Status: Received by [facility] Primary Care Physician: Jeniffer Snow MD [Primary Care Provider] - Please follow up with your Primary Care Physician in: 1-2 weeks Please Follow Up With: Edenilson Abraham MD When: 1-2 weeks Please Follow Up With: Anson Whitmore MD When: 1-2 weeks Patient Instructions: Pulmonary Embolism, What Is Pneumonia? Disposition: Home Minutes spent on discharge:: 45 Patient Condition:: Stable Medical Necessity - Tobacco Use Smoking Status: Former smoker Tobacco Use: Non-smoker Meaningful Use Info Meaningful Use Diagnoses (Choose all that apply): VTE - VTE Anticoag overlap given w/in hospital stay or rx'd at ia?: Yes Pt receive overlap for 5 days?: No Reason overlap not ordered, prescribed, or given for 5 days: Treatment Not Indicated Inpatient E&M: 86105 SNF Disch >30 Min
--- NOTE | 2020-04-12 13:45 | CASEMGMT ---
TORSTEN GUEVARA Re-admission note: Prior admission: 04/01/30-04/02/20. Bilat Mastectomy. Discharged home w/. Current admission: Re-admitted 04/11/20: Bilat PE. Pt had f/u visit with Dr Etienne Abraham on 04/08. U/A and CXR ordered and pt was started on Levaquin for UTI and suspicion of pneumonia. SOB persisted and she was febrile as well so she came into the ED. CT of the chest done showed acute multiple pulmonary emboli in the left lower lobe pulmonary branches as well as the left lower lobe consolidative and groundglass opacities. Re-admitted 04/11/20 with Bilat BE. Pt being discharged today (04/12) and will be going home on Levaquin and Xarelto, which has been e-scribed to [facility]. Pt to take Xarelto 15 mg BID x 3 weeks and then 20 mg QD daily thereafter for 6 months. Call placed to [facility]win in pharmacy for olson check on Xarelto. 30-day savings card will be applied and 1st 3 weeks will be free. Per [facility]win, pt's deductible is approx $435, and then once deductible is met, co-pay for Xarelto will be $31.83 monthly. TORSTEN GUEVARA met with pt in room to discuss discharge planning and Xarelto. Introduced self and role of TORSTEN GUEVARA. Discussed Xarelto with pt and cost of medication, deductible, and co-pay. Pt aware 1st 3 weeks will be free. Pt placed call to inquire how much of her deductible has been met and states she will still need to pay approx $400 yet to meet her deductible. Pt states this is affordable and she is aware the deductible will start over again in May, which she again states this is affordable. She states, I've never had to pay much for health care over the years and we realize this needs to be a priority now. Pt will need only need approx 2-wks supply of 20 mg Xarelto (once the 3-wks 15 mg is completed) to get her thru to the end of the year and per pharmacy, cost for 14 tabs of 20 mg Xarelto will be $227.01. Dr Crockett made aware and e-scribed 17 tabs of 20 mg Xarelto to [facility] pharmacy so she has enough to get her through until end of 2019, as her deductible will re-start in 2020. Pt aware she is to f/u with her PCP for additional scripts/refills of the Xarelto, as she should be on it for 6 months. Pt lives at home w/her and is independent. She states she currently sees Dr Snow as PCP, but she plans to switch to Dr Winn. Pt aware, that if Dr Winn is not able to get her in early enough for a f/u appt and to get script for Xarelto, that she should f/u with Dr Snow until she can get switched to Dr Winn, so she does not run out of Xarelto. Pt voices understanding of all of the above. Pt denies any further needs, concerns, or questions. Moe BANDAN RN CM
--- NOTE | 2020-04-15 13:06 | CASEMGMT ---
TORSTEN DC PHONE CALL DC DATE: 04/12/2020 DC DISPOSITION: Home DC DIAGNOSIS: PE/ pneumonia LACE/STRATA: 02/16 F/U APPTS MADE PRIOR TO DC: yes PRESCRIPTIONS ACQUIRED BY PT: yes Attempted call to home phone. No answer and no messaging available. Agustin BANDAN RN ACM
== END 2020-04-12 14:36 | disposition home or self-care (01) | DRG 175 ==
LOC: ED 18:13 → PCU 21:25
PROVIDERS: Admitting Provider Hospitalist; Emergency Provider Emergency Medicine; PCP Internal Medicine; Visit Provider Student in an Organized Health Care Education/Training Program
DX: I26.99 Other pulmonary embolism without acute cor pulmonale (principal); J18.9 Pneumonia, unspecified organism; N39.0 Urinary tract infection, site not specified; Z85.3 Personal history of malignant neoplasm of breast; Z90.13 Acquired absence of bilateral breasts and nipples; Z79.2 Long term (current) use of antibiotics; Z87.891 Personal history of nicotine dependence; R10.2 Pelvic and perineal pain; R32 Unspecified urinary incontinence
CPT/HCPCS: 36415; 71045; 71046; 71275; 80048; 80053; 81001; 83605; 84484; 85025; 85610; 85730; 87040; 87086; 87426; 87449; 87633; 87635; 87641; 93005; 93306; 97802; 99285; Q9967; A4216; U0002

== ENCOUNTER → 2020-05-07 09:00 | Outpatient (CLI) | payer MEDICARE, OTHER, SELFPAY ==
[2020-04-29 15:06] VITALS: BMI 29.2
[2020-05-01 13:55] VITALS: BMI 29.2
[2020-05-02 10:11] VITALS: BMI 29.4
--- NOTE | 2020-05-07 09:05 | BD_ITS ---
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 COMPARISON: Comparison is made with prior study dated 03/01/2007. FINDINGS: Lumbar Spine (L1-L4): g/cm2 (1.234) / T-score (0.3) / Z-score (2.0) Findings are suggestive of normal bone density with a low fracture risk. Left Femur Total: g/cm2 (0.856) / T-score (-1.2) / Z-score (0.5) Left Femoral Neck: g/cm2 (0.862) / T-score (-1.3) / Z-score (0.6) Right Femur Total: g/cm2 (0.894) / T-score (-0.9) / Z-score (0.8) Right Femoral Neck: g/cm2 (0.894) / T-score (-1.0) / Z-score (0.8) The T-Scores on the most recent prior examination were: Lumbar Spine (L1-L4): There has been improvement of bone density since the previous examination. Left Femur Total: which represents a worsening of 10.6%. BD/Dexa Bone Density Study IMPRESSION: The patient is considered osteopenic as outlined below according to World Isaias Organization (WHO) criteria with a low fracture risk. There has been worsening of bone density since the previous examination. Reference Information: The T-score is the number of standard deviations above or below the standard which is normal for young adults at their peak bone mineral density. The World Health Organization (WHO) interprets the T-scores as follows: Above -1 Normal bone density Between -1 and -2.5 Osteopenia Equal to / or below -2.5 Osteoporosis As a practical clinical guideline, osteopenia may be graded as follows: Mild -1 through -1.5 Moderate -1.6 through -2.0 Severe -2.1 through -2.4 The Z-score is the number of standard deviations above or below age-matched controls. A Z-score of less than -1.5 would be considered abnormal. References: 1. NIH Osteoporosis and Related Bone Diseases www osteo.org 2. International Society for Clinical Densitometry www iscd.org 3. National Osteoporosis Foundation www nof.org Electronically Signed: Derrell Jensen, at 15:12 EST , Service support ,
== END ==
PROVIDERS: PCP Internal Medicine; Referring Provider Internal Medicine Hematology & Oncology; Visit Provider Internal Medicine Hematology & Oncology
DX: N95.9 Unspecified menopausal and perimenopausal disorder (principal); Z13.820 Encounter for screening for osteoporosis
CPT/HCPCS: 77080

== ENCOUNTER → 2021-01-06 08:58 | Outpatient (CLI) | payer MEDICARE, OTHER, SELFPAY ==
[2020-05-02 10:11] VITALS: BMI 29.4
--- NOTE | 2021-01-06 09:00 | NM_ITS ---
CLINICAL: Female, 75 years old. NEW ONSET BACK PAIN - H/O BREAST CANCER WHOLE BODY NUCLEAR BONE SCAN TECHNIQUE: Following the IV administration of 26 mCi of Tc MDP, whole body bone imaging was performed with a gamma camera following a three hour delay. FINDINGS: There is evidence of a localized increased uptake at the level of the L1 vertebral body. This may represent vertebral compression fracture. With the patient''s history of breast cancer, a metastatic deposit cannot be ruled out. Correlation with the plain radiographs of the lumbar spine is recommended. Findings suggestive of bilateral knee replacement. NM/Bone Scan Whole Body IMPRESSION: Focal increased uptake in the L1 vertebrae as described. This may represent a compression fracture although a metastatic deposit with the patient''s history of breast cancer should be ruled out. Electronically Signed: Derrell Jensen MD at 13:49 EDT , Service support ,
== END ==
PROVIDERS: PCP Internal Medicine; Referring Provider Internal Medicine Hematology & Oncology; Visit Provider Internal Medicine Hematology & Oncology
DX: M54.9 Dorsalgia, unspecified (principal); Z85.3 Personal history of malignant neoplasm of breast
CPT/HCPCS: 78306; A9503

== ENCOUNTER → 2021-03-27 12:19 | Outpatient (CLI) | payer MEDICARE, OTHER, SELFPAY ==
[2020-05-02 10:11] VITALS: BMI 29.4
--- NOTE | 2021-03-27 12:21 | MRI_ITS ---
STUDY: MRI LUMBAR SPINE WITHOUT CONTRAST REASON FOR EXAM: Female, 76 years old. BACK PAIN - COMPARE TO MRI IN DECEMBER TECHNIQUE: Standardized fat and water weighted pulse sequences were obtained in the sagittal and axial planes. COMPARISON: 12/24/2020 FINDINGS: Again noted is the T12 fracture. Please see dedicated thoracic spine MRI. Normal lumbar lordosis. There is no substantial scoliosis. Normal conus medullaris that terminates at the L1. L1-2: There is moderate disc space narrowing and endplates spondylosis. Mild disc bulge and moderate facet arthropathy with mild central canal stenosis. Mild right and mild left foraminal stenosis. L2-3: There is severe disc space narrowing and endplates spondylosis. There is minimal grade 1 retrolisthesis. Moderate disc osteophyte complex and foraminal arthropathy with moderate central canal stenosis. Moderate right and mild left foraminal stenosis. Findings are stable since prior examination. L3-4: There is moderate disc space narrowing and endplates spondylosis. Mild disc osteophyte complex and moderate facet arthropathy with mild central canal stenosis. Moderate right and mild left foraminal stenosis. Findings are stable since prior examination. L4-5: There is mild disc space narrowing and endplates spondylosis. Severe facet arthropathy with grade 1 anterolisthesis and disc uncovering with mild central canal stenosis. Mild right and mild left foraminal stenosis. Findings are stable since prior examination. L5-S1: There is mild disc space narrowing and endplates spondylosis. Moderate disc osteophyte complex and facet arthropathy without significant central canal stenosis. Moderate right and mild left foraminal stenosis. Findings are stable since prior examination. Normal visualized sacral ala. MRI/Spine Lumbar (Routine) IMPRESSION: Stable multilevel degenerative changes. Electronically Signed: Elizabeth Amaro MD at 10:56 EST Tel , Service support ,
--- NOTE | 2021-03-27 12:21 | MRI_ITS ---
STUDY: MRI THORACIC SPINE WITHOUT CONTRAST REASON FOR EXAM: Female, 76 years old. BACK PAIN - COMPARE TO MRI IN DECEMBER TECHNIQUE: Standardized fat and water weighted pulse sequences were obtained in the sagittal and axial planes. COMPARISON: 12/16/2020 lumbar spine MRI. FINDINGS: Normal kyphosis of the thoracic spine. There is no substantial scoliosis. T1-2, T2-3, T3-4, T4-5, T5-6, T6-7, T7-8, T8-9, T9-10, T10-11, T11-12: There are moderate multilevel disc space narrowing and endplate spondylosis. Again noted is a mild compression fracture at T12 without retropulsion and decreased edema, consistent with subacute fracture now. There is no retropulsion or evidence of ligamentous injury. Normal visualized thoracic cord. MRI/Spine Thoracic (Routine) IMPRESSION: Subacute T12 fracture. No demonstrated new fractures. Electronically Signed: Elizabeth Amaro MD at 9:55 EST Tel , Service support ,
== END ==
PROVIDERS: PCP Internal Medicine; Referring Provider Internal Medicine Hematology & Oncology; Visit Provider Internal Medicine Hematology & Oncology
DX: M54.9 Dorsalgia, unspecified (principal); T14.90XA Injury, unspecified, initial encounter
CPT/HCPCS: 72146; 72148

== ENCOUNTER 2021-04-30 10:30 | Outpatient (RCR) | payer MEDICARE, OTHER, SELFPAY ==
[2020-05-02 10:11] VITALS: BMI 29.4
--- NOTE | 2021-04-16 08:11 | HP.PTEVAL_ITS ---
Patient's Visit Information ROWENA GUAMAN is a 76 year old F referred to Physical Therapy by Dr. Rosa Hair MD with a diagnosis of Right Hip Bursitis. Date of Evaluation: 04/15/21 Physical Therapist: Jackie Mayer DPT - Visit Plan Frequency: 2x /Week Duration: 4 Weeks Plan: Focus on core strength/stabilization. Dry Needling as needed per MD recommendation - Subjective Patient reports that she has a chronic hip/lumbar spine issue which she has been addressing for a couple of years now- determine spine vs. hip. She saw a hip specialist- who did some movement and it grabbed- so she has been doing PT on/off and dry needling at the [facility]. She knows that the dry needling has diminished the hip pain. She has always been very active. Diagnosed with breast cancer about a year ago- had gone through radiation, estrogen blockers- begin of Dec compression fracture T12-L1. Has has MRI's which showed this. It is uncomfortable and has been very inactive since then. She feels that getting back into therapy and dry needling would be appropriate. Last three months she has been on bedrest to let things heal- but has been cleared to get moving again. She has dogs that insist that she rests. Agg: being upright in a sitting/standing position no more than an hour, up/down stairs. Ache and hurts and has to flatten out. Worst: 4-5/10 consistent. Pain is located in the right hip on the lateral aspect- ITband and T-12-L1. No radiating pain- She does have feeling in the bottom of both feet- but this is not a new sensation. No falls- Fully I with all ADL's and driving. No loss or change in bowel or b ladder. Sleep: not disturbed. PMHx/Meds: No changes since last visit to [facility] - Objective Posture: FH, RS- can correct with verbal and tactile cues but does not maintain. Gait: no deviation noted- good arm swing and trunk rotation. Stairs: asc/desc 8 recip with 2 HR- requires UE A for propulsion forwards and has poor control with descent. HR/TR: able with UE A. SLS: Left: 15 seconds Right: 2-3 seconds. ROM: Lumbar: WFL flexion to shins but reports hamstring tightness. Hip/Knee/Ankle: WFL. Strength: Core: poor, Hip: IR/ER: 4-/5, Flexion/Abd: 4/5, Add: 4+/5, Knee: 4+/5, Ankle: 5/5. Flex: HS: severe, Gastroc: severe, Soleus: moderate. Palpation: tender along paraspinals and into the right gluts and down the ITBand - Special Tests R Hip Scour: Negative R Hip ISABEL - Intraarticular Pathology: Positive R Hip FADDIR - Labrum: Positive R Hip Trendelenberg - Glut Medius: Negative R Hip Jesus - IT Band: Positive L Hip Scour: Negative L Hip ISABEL - Intraarticular Pathology: Negative L Hip FADDIR - Labrum: Negative L Hip Trendelenberg - Glut Medius: Negative L Hip Jesus - IT Band: Negative - Balance/Special Test Scores Lower Extremity Functional Score: 44 - Goals Goal 1:: Patient will be I with HEP and progression Goal Time Frame: 4-6 Weeks Goal 2:: Patient will maintain proper posture t/o tx session to demo increased core s/s. Goal Time Frame: 4-6 Weeks Goal 3:: Patient will report return to all normal ADL's with no more than 2/10 pain Goal Time Frame: 4-6 Weeks Goal 4:: Patient will report 90% better Goal Time Frame: 4-6 Weeks - Rehabilitation Potential Physical Therapy Diagnosis: Patient presents with hypomobility- she has decreased pain free ROM, LE and core strength/stabilization, flexibility and muscular endurance leading to poor posture and increased pain with ADL's. Rehabilitation Potential: Good - Anticipated Interventions Patient/Client Instruction: Educate patient on: Benefits of Fitness Program Therapeutic Exercise to Include: Strength training, Endurance training, Balance training, Coordination, Agility training, Body mechanics, Postural training, Flexibilty training, Gait and locomotor training, Neuromotor development, Dynamic Lumbar Stabilization, Scapular Strength/Stabilization For the Purpose of:: To improve muscle performance and motor function Manual Therapy Techniques to Include: Functional dry needling, Soft tissue mobilization For the Purpose of:: To improve muscle performance and motor function Thank you for the opportunity to evaluate your patient. For Medicare and Medicare HMO plans, please review the plan of care and approve it. It will need to be FAXED BACK to us at [phone] for Medicare purposes. For Medicare only, by signing this I certify the plan of care. Please let me know if there are questions or concerns regarding this plan of care. Physician Signature: Date:
--- NOTE | 2021-06-16 11:47 | HP.PT.NRP ---
ROWENA LOUIEKLEBERKEVIN was seen in my office for initial evaluation on 04/15/21. The following Plan of Care was established for this patient: Initial Frequency: 2x /Week Initial Duration: 4 Weeks Patient/Client Instruction: Educate patient on: Benefits of Fitness Program Therapeutic Exercise to Include: Strength training, Endurance training, Balance training, Coordination, Agility training, Body mechanics, Postural training, Flexibilty training, Gait and locomotor training, Neuromotor development, Dynamic Lumbar Stabilization, Scapular Strength/Stabilization For the Purpose of:: To improve muscle performance and motor function Manual Therapy Techniques to Include: Functional dry needling, Soft tissue mobilization For the Purpose of:: To improve muscle performance and motor function This patient was last seen in our office . Pertinent comments regarding their Physical therapy will appear below: Patient has not attended physical therapy in over 30 days- appropriate for d/c and return to MD for further evaluation as needed. At this point I will be discontinuing this patient from physical therapy. I would be happy to see this patient again in the future if found appropriate by the physician. Thank you! Jackie Mayer DPT Balance/Gait/Functional tests - Balance/Special Test Scores Lower Extremity Functional Score: 44
== END 2021-04-30 19:00 | disposition home or self-care (01) ==
LOC: PT 10:30
PROVIDERS: PCP Internal Medicine; Referring Provider Orthopaedic Surgery Orthopaedic Surgery of the Spine; Visit Provider Orthopaedic Surgery Orthopaedic Surgery of the Spine
DX: M70.71 Other bursitis of hip, right hip (principal)
CPT/HCPCS: 97110

== ENCOUNTER 2021-05-19 13:39 | Emergency (ER) | payer MEDICARE, OTHER, SELFPAY ==
[2020-05-02 10:11] VITALS: BMI 29.4
[2021-05-19 13:42] VITALS: BP 140/72; PULSE 59; RESP 16; TEMP 36.6; O2SAT 98; BMI 31.0
--- NOTE | 2021-05-19 14:28 | EDS_ITS ---
HPI History of Present Illness Chief Complaint: Dizziness Informant: patient and EMS Narrative Narrative: Vertigo started all of a sudden in the middle of the night when she woke up and rolled over. Associated with nausea and vomiting. Vertigo was severe when it is there. After resting her remaining still for a while and gradually resolves. She states she has a mild dull headache, she did not notice that until I asked her. She has noticed for the last 3 days she has had decreased hearing in her left ear and some popping. No ear pain or tinnitus. No recent injury. She has been sneezing a lot for the last 4 or so days, but she denies any cough, fevers, chills, she does feel malaised today. Previously vaccinated against Covid but has not done a test since she has had the symptoms. [facility] Medical History Arthritis Cancer of left female breast Compression fracture of T12 vertebra Hemorrhoids History of back problems History of pneumonia Mitral valve prolapse Pulmonary embolism Regional lymph node metastasis present Vaginal dryness Home Medications sertraline 50 mg tablet 100 mg PO QHS tab 03/01/20 [History Last Taken Unknown] cannabidiol 50 mg PO DAILY PRN 03/18/20 [History Last Taken Unknown] losartan 25 mg PO QHS 03/18/20 [History Last Taken 03/31/20 22:00 25 MG] acetaminophen 650 mg PO QHS 05/02/20 [History Last Taken Unknown] calcium carbonate 500 mg PO DAILY 07/03/20 [History Last Taken Unknown] cholecalciferol (vitamin D3) 1,000 unit PO BID 07/03/20 [History Last Taken Unknown] rivaroxaban 20 mg PO DAILY 30 Days #30 tablet 08/12/20 [Rx Last Taken Unknown] anastrozole 1 mg PO DAILY #90 tab 04/30/21 [Rx Last Taken Unknown] meclizine 25 mg PO Q8H PRN PRN #21 tab 05/19/21 [Rx Last Taken Unknown] ondansetron 8 mg PO Q8H PRN PRN #20 tab 05/19/21 [Rx Last Taken Unknown] Allergy/AdvReac Type Severity Reaction Status Date / Time amoxicillin [From Augmentin] Allergy Severe Other Verified 04/01/21 14:37 clavulanic acid Allergy Severe Other Verified 04/01/21 14:37 [From Augmentin] sulfamethoxazole Allergy Severe Other Verified 04/01/21 14:37 [From Bactrim] trimethoprim [From Bactrim] Allergy Severe Other Verified 04/01/21 14:37 bee venom protein (honey bee) AdvReac Severe Swelling Verified 04/01/21 14:37 tapentadol [From Nucynta] AdvReac Severe Nausea/Vom/ Verified 04/01/21 14:37 Diarrhea naproxen [From Naprosyn] AdvReac Intermediate GI Upset Verified 04/01/21 14:37 Family History Mother Cancer Aunt Cancer Surgical History history bilateral foot surgery history bilateral reconstruction both hands History of back surgery History of bilateral knee replacement History of bilateral mastectomy (~04/01/20) History of open sigmoidectomy Social History Smoking Status: Former smoker second hand exposure: No alcohol intake: never substance use type: does not use seatbelt use: always do you feel safe at home: Yes ROS ROS ED Constitutional Constitutional ED: Denies chills or fever(s) Eyes Eyes: Denies change in vision or diplopia ENT ENT ED: Reports as per HPI, headache(s) and nasal congestion; Denies rhinorrhea or sore throat Cardiovascular Cardiovascular: Denies chest pain or palpitations Respiratory/Chest Respiratory/Chest: Denies cough or dyspnea Gastrointestinal Gastrointestinal: Denies abdominal pain, diarrhea, nausea or vomiting Genitourinary Genitourinary ED: Denies dysuria or hematuria Musculoskeletal Musculoskeletal: Denies back pain or neck pain Integumentary Denies abscess or rash Neurologic Neurologic: Reports headache(s) and vertigo; Denies paresthesias or weakness Psychiatric Psychiatric: Denies anxiety or suicidal thoughts EXAM Physical Exam Const Vital Signs: 05/19/21 13:42 05/19/21 14:09 Temperature 97.8 F Temperature Source Oral Pulse Rate 59 L Respiratory Rate 16 Respiratory Effort Normal Respiratory Pattern Normal Blood Pressure 140/72 H Blood Pressure Mean 94 Pulse Ox 98 Oxygen Delivery Method Room Air Positive well nourished and well developed General Appearance ED: well developed and NAD HEENT Reports EAC's normal, TM's clear, TM's normal bilaterally and moist mucous membranes HEENT Narrative: Patient has recurrent vertigo with any slight movement of the head. Asymptomatic when remaining still for several minutes. normocephalic and atraumatic Tympanic Membrane ED: Yes TM's clear Eyes PERRL and EOMs intact bilaterally Neck full ROM and supple Resp normal respiratory effort and clear to auscultation bilaterally Cardio regular rate, regular rhythm and no murmurs GI non-tender and non-distended Auscultation: normoactive bowel sounds Palpation: soft Back/Spine no CVA tenderness General Back: other FROM Extremity normal to inspection General Extremety ED: Negative for edema, pulses abnormal or tenderness General Extremity: Negative for edema or pulses abnormal Neuro oriented x3, CN's II-XII intact bilaterally, no focal motor deficits and no sensory deficits noted Neuro Narrative: Normal [id number] and [id number] bilaterally Sensorium / Orientation: awake and alert Motor Exam: strength 5/5 throughout Skin no rashes or lesions noted and no wounds MDM MDM MDM Narrative Medical decision making narrative: Clinically the patient's ear appears symmetric and unremarkable. Given that she is having symptoms in the left ear and peripheral vertigo, I did a CT of the sella/orbits, it shows nothing acute. I do not think she has an otitis, and symptomatically she is much improved after meclizine and Zofran, to the point where she is able to get up and move around and walk without significant difficulty, which was not the case prior to coming which is why she used EMS. She is comfortable going home with prescriptions for these. I also recommend Flonase for now until she can follow-up with ENT if symptoms persist. She is comfortable with that plan. Radiography Diagnostic Testing: Clinical Impression(s) from Imaging Studies CT Orbit Sella Inner 05/19/21 14:40 IMPRESSION: Normal CT examination of the bilateral orbits. Electronically Signed: Derrell Jensen MD at 14:58 EST , Service support , Discharge Plan Triage Chief Complaint: Dizziness ED Provider: Malcom Carbajal Dx/Rx/DC Orders Clinical Impression: Peripheral vertigo involving left ear Instructions: ED Vertigo, Unspecified Prescriptions: New meclizine 25 mg tablet 25 mg PO Q8H PRN PRN (Reason: dizziness) Qty: 21 RF: 0 ondansetron [ondansetron] 4 MG tablet 8 mg PO Q8H PRN PRN (Reason: Nausea) Qty: 20 RF: 0 No Action sertraline 50 mg tablet 100 mg PO QHS RF: 0 losartan 25 MG tablet 25 mg PO QHS RF: 0 cannabidiol 100 MG/ML solution 50 mg PO DAILY PRN (Reason: Pain 1-10 Or Fever) RF: 0 acetaminophen 325 MG capsule 650 mg PO QHS RF: 0 calcium carbonate 500 MG tablet 500 mg PO DAILY RF: 0 cholecalciferol (vitamin D3) 1,000 UNIT tablet 1,000 unit PO BID RF: 0 rivaroxaban 20 MG tablet 20 mg PO DAILY 30 Days Qty: 30 RF: 1 anastrozole 1 MG tablet 1 mg PO DAILY Qty: 90 RF: 3 Primary Care Provider: Jeniffer Snow Referrals: Keaton Thakkar MD [STAFF PHYSICIAN] - 1 Week if not improving Jeniffer Snow MD [Primary Care Provider] - Activity Restrictions/Additional Instructions: Use fluticasone nasal spray, 2 sprays each nostril, once daily for the next week or until ear symptoms resolve. Disposition Disposition: Home, Self Care
[2021-05-19] MEDS: Meclizine HCl 25 MG Tablet PO (14:33)
[2021-05-19] MEDS: Ondansetron ODT 4 MG Tablet PO (14:33)
--- NOTE | 2021-05-19 14:40 | CT_ITS ---
STUDY: CT ORBITS WITHOUT CONTRAST REASON FOR EXAM: Female, 76 years old. L ear discomfort, vertigo RADIATION DOSAGE (If Supplied By Facility): CTDIvol = ( 67.58 ) mGy, DLP = ( 933.05 ) mGycm TECHNIQUE: The patient was scanned in a multi detector CT scanner. Transaxial imaging was performed without the administration of intravenous contrast material. Sagittal and coronal images were reconstructed. Individualized dose optimization techniques were used for this CT. COMPARISON: None. FINDINGS: Normal globes. Normal intraconal spaces. Normal optic nerve sheath complex. Normal bilateral extraocular muscles. Normal lacrimal glands. Normal bilateral medial and inferior orbital castano. Normal bilateral maxillary bones. Normal bilateral frontozygomatic arches. Normal bilateral zygomatic temporal arches. Normal frontal sinus. Normal ethmoidal sinuses. Normal maxillary sinuses. Normal sphenoid sinuses. Normal soft tissue structures. CT/Orb Sella Post Fossa Ear w/o IMPRESSION: Normal CT examination of the bilateral orbits. Electronically Signed: Derrell Jensen MD at 14:58 EST , Service support ,
[2021-05-19 16:48] VITALS: BP 165/75; PULSE 66; RESP 14; O2SAT 100
== END 2021-05-19 16:51 | disposition home or self-care (01) ==
PROVIDERS: Emergency Provider Emergency Medicine; PCP Internal Medicine; Visit Provider Emergency Medicine
DX: H81.392 Other peripheral vertigo, left ear (principal); M19.90 Unspecified osteoarthritis, unspecified site; Z87.891 Personal history of nicotine dependence
CPT/HCPCS: 70480; 87426; 96374; 99283

== ENCOUNTER 2021-08-05 17:00 | Emergency (ER) | payer MEDICARE, OTHER, SELFPAY ==
[2020-05-02 10:11] VITALS: BMI 29.4
[2021-08-05 17:01] VITALS: BP 149/84; PULSE 115; RESP 16; TEMP 37.4; O2SAT 92; BMI 31.4
--- NOTE | 2021-08-05 17:20 | CT_ITS ---
INDICATION: LLQ pain EXAMINATION: CT Abdomen And Pelvis W/ Contrast Injection TECHNIQUE: Helically acquired images were obtained of the abdomen and pelvis after IV contrast. A radiation dose optimization technique was used for this scan. IV Contrast dosage and agent: IV 100mL Isovue-300 Oral contrast: None. COMPARISON: None. FINDINGS: Visualized lung bases: Stable right lower lobe granulomas. Liver: Simple 2.1 cm cyst in the inferior liver tip. Gallbladder: Unremarkable Spleen: Unremarkable Pancreas: Unremarkable Adrenal Glands: Unremarkable Kidneys: Unremarkable Vasculature: Mild scattered aortoiliac atherosclerotic calcifications. GI Tract: There is mild circumferential wall thickening of several loops of small bowel with surrounding mesenteric fat stranding. There is also mild short segment wall thickening of the sigmoid colon. Lymphadenopathy: None Peritoneum: No ascites. Bladder: Unremarkable Reproductive organs: Unremarkable Bones/Soft tissues: There are diffuse degenerative changes of the spine. Grade 1 anterolisthesis L4 on L5. CT/Abdomen/Pelvis W IV Cont ONLY IMPRESSION: Findings concerning for infectious or inflammatory enterocolitis. No focal fluid collection or free air Grade 1 anterolisthesis L4 on L5. Electronically Signed: Jaziel Figueroa MD at 19:32 EDT ,
--- NOTE | 2021-08-05 17:21 | ED.VIS.GI ---
HPI HPI - GI History of Present Illness Chief Complaint: Abd Pain Informant: patient Abdominal Pain/Flank Pain Onset: Today and Yesterday Context: Gradual Onset Timing: Continuous Quality: Aching and Cramping Current Severity: Mild Maximum Severity: Moderate Worsened by: Nothing Relieved by: Nothing Nausea/Vomiting/Emesis GI Symptom: Negative for Nausea and Vomiting Diarrhea/Melena/Hematochezia GI Symptom: Negative for Diarrhea, Melena and Hematochezia Associated Symptoms Associated Symptoms: Negative for Dysuria, Frequency, Hematuria and Urgency Narrative Narrative: 76-year-old female history of breast cancer bilateral mastectomies. History of diverticulitis with sigmoidectomy multiple years ago. States last night and today she developed abdominal pain with a fever developing later today. Denies any nausea, vomiting or diarrhea. No constipation. No dysuria. Said fever was 101 when she decided to come in. She denies ever having an appendectomy, cholecystectomy or hysterectomy. Prior similar symptoms: No Recent Illness/Hospitalization: No PFSH PFSH Medical History Arthritis Cancer of left female breast Compression fracture of T12 vertebra Hemorrhoids History of back problems History of pneumonia Mitral valve prolapse Pulmonary embolism Regional lymph node metastasis present Vaginal dryness Home Medications sertraline 50 mg tablet 100 mg PO QHS tab 03/01/20 [History Last Taken Unknown] cannabidiol 50 mg PO DAILY PRN 03/18/20 [History Last Taken Unknown] losartan 25 mg PO QHS 03/18/20 [History Last Taken 03/31/20 22:00 25 MG] acetaminophen 650 mg PO QHS 05/02/20 [History Last Taken Unknown] calcium carbonate 500 mg PO DAILY 07/03/20 [History Last Taken Unknown] cholecalciferol (vitamin D3) 1,000 unit PO BID 07/03/20 [History Last Taken Unknown] rivaroxaban 20 mg PO DAILY 30 Days #30 tablet 08/12/20 [Rx Last Taken Unknown] anastrozole 1 mg PO DAILY #90 tab 04/30/21 [Rx Last Taken Unknown] meclizine 25 mg PO Q8H PRN PRN #21 tab 05/19/21 [Rx Last Taken Unknown] ondansetron 8 mg PO Q8H PRN PRN #20 tab 05/19/21 [Rx Last Taken Unknown] ciprofloxacin HCl 500 mg PO BID 10 Days #20 tab 08/05/21 [Rx Last Taken Unknown] hydrocodone-acetaminophen 1 tab PO Q6H PRN 6 Days #20 tab 08/05/21 [Rx Last Taken Unknown] metronidazole 500 mg PO TID 10 Days #30 tab 08/05/21 [Rx Last Taken Unknown] Allergy/AdvReac Type Severity Reaction Status Date / Time amoxicillin [From Augmentin] Allergy Severe Other Verified 08/05/21 17:01 clavulanic acid Allergy Severe Other Verified 08/05/21 17:01 [From Augmentin] sulfamethoxazole Allergy Severe Other Verified 08/05/21 17:01 [From Bactrim] trimethoprim [From Bactrim] Allergy Severe Other Verified 08/05/21 17:01 bee venom protein (honey bee) AdvReac Severe Swelling Verified 08/05/21 17:01 tapentadol [From Nucynta] AdvReac Severe Nausea/Vom/ Verified 08/05/21 17:01 Diarrhea naproxen [From Naprosyn] AdvReac Intermediate GI Upset Verified 08/05/21 17:01 Family History Mother Cancer Aunt Cancer Surgical History history bilateral foot surgery history bilateral reconstruction both hands History of back surgery History of bilateral knee replacement History of bilateral mastectomy (~04/01/20) History of open sigmoidectomy Social History Smoking Status: Former smoker second hand exposure: No alcohol intake: never substance use type: does not use seatbelt use: always do you feel safe at home: Yes ROS ROS ED ROS Narrative Fever and abdominal pain. Review of Systems ROS Unobtainable: Denies due to encephalopathy Constitutional Constitutional ED: Reports fever(s) ENT ENT ED: Denies ear pain Cardiovascular Cardiovascular: Denies chest pain Respiratory/Chest Respiratory/Chest: Denies cough or dyspnea Gastrointestinal Gastrointestinal: Reports abdominal pain; Denies constipation, diarrhea, melena, nausea or vomiting Genitourinary Genitourinary ED: Denies dysuria Musculoskeletal Musculoskeletal: Denies myalgias Integumentary Denies rash Neurologic Neurologic: Denies headache(s) Psychiatric Psychiatric: Denies depression Endocrine Endocrinology: Denies polyuria Hematologic/Lymphatic Hematologic/Lymphatic: Denies easy bruising Allergic/Immunologic Allergic/Immunologic ED: Denies urticaria EXAM Physical Exam Narrative Exam Narrative: 36-year-old female no acute distress. Vital signs are stable. Currently her temperature nine 9.4. She does not look septic or toxic. She does not look dehydrated. H EENT exam unremarkable. Neck nontender. Lungs are clear. Heart regular rhythm no murmur. Rate about 110. Abdomen soft nondistended normal bowel sounds. Tender in the lower quadrants more so on the left. No peritoneal signs. No hernia or mass. Minimally distended. Not tympanic. Moving all 4 extremities. Back nontender. Neurologically she is awake and alert with no focal motor deficits. Const Vital Signs: 08/05/21 17:01 Temperature 99.4 F H Temperature Source Oral Pulse Rate 115 H Respiratory Rate 16 Blood Pressure 149/84 H Blood Pressure Mean 105 Pulse Ox 92 Oxygen Delivery Method Room Air Positive well nourished and well developed; Negative for cachectic, contractures or unkempt General Appearance ED: well developed and NAD; Negative for unkempt, cachectic, contractures or pallor Nutritional Appearance: Negative for cachectic HEENT Reports moist mucous membranes normocephalic and atraumatic Eyes PERRL and EOMs intact bilaterally Neck no lymphadenopathy, supple and no JVD General: Negative for tenderness Resp normal respiratory effort and clear to auscultation bilaterally Auscultation: Negative for rales, rhonchi or wheezes Cardio regular rhythm, S1 normal heart sound and no murmurs; Negative for regular rate Rate: tachycardic GI non-distended and no masses; Negative for non-tender Auscultation: normoactive bowel sounds Palpation: soft and tender; Negative for guarding, rigid or rebound tenderness present Back/Spine no CVA tenderness Extremity full ROM General Extremety ED: Negative for edema or tenderness General Extremity: Negative for edema Neuro moves all extremities Sensorium / Orientation: alert, oriented to person, oriented to place and oriented to time; Negative for orientation impaired, confused, lethargic or stuporous Psych mental status grossly normal and thought process normal Appearance: Negative for unkempt Attitude: No agitated Mood & Affect: Negative for depressed or tearful Skin no wounds General Skin Exam: Negative for jaundice or pallor Lesions: no lesions Rashes: no rashes MDM MDM MDM Narrative Medical decision making narrative: 76-year-old female with lower abdominal pain and fever. Differential would include diverticulitis, UTI, bowel obstruction versus other etiologies. CAT scan labs are being obtained. She did not want a thing for pain or nausea. She will be treated with IV fluids. Repeat exam patient doing well at 6:35 PM. Awaiting urinalysis and CAT scan results. We did go over her blood work so far. Repeat patient is doing well at 9:40 PM. We discussed all of her test results. We went over CAT scan results. She will be given a dose of Cipro and Flagyl here. Placed on Cipro and Flagyl the next 10 days. [place] for pain. And follow-up with her primary care physician Dr. Jeniffer Snow. Patient is comfortable being discharged home. Lab Data Attestation: I reviewed the patient's lab results. Lab results narrative: CBC unremarkable white count of 9. H&H 14 and 39. Electrolytes sodium 135 gap of 7 BUN of 14 creatinine 1. Liver enzymes unremarkable glucose 125. Lipase 106. Urinalysis is negative. I discussed the CAT scan results with the radiologist and when he reviewed it again he does think this is from diverticulitis and not a viral enteritis. Labs: Laboratory Results - last 24 hr 08/05/21 08/05/21 08/05/21 17:20 17:20 19:02 WBC 9.4 RBC 4.40 Hgb 14.0 Hct 39.7 MCV 90.2 MCH 31.8 MCHC 35.3 RDW Std Deviation 40.5 RDW Coeff of Con 12.2 Plt Count 235 MPV 10.3 Immature Gran % (Auto) 0.300 Neut % (Auto) 82.6 H Lymph % (Auto) 9.5 L [place] % (Auto) 7.0 Eos % (Auto) 0.3 Baso % (Auto) 0.3 Absolute Neuts (auto) 7.8 H Absolute Lymphs (auto) 0.89 Nucleated RBC % 0 Sodium 135 L Potassium 4.0 Chloride 105 Carbon Dioxide 23.0 Anion Gap 7 BUN 14 Creatinine 1.09 H Estim Creat Clear Calc 41.75 Est GFR (MDRD) Af Amer 63 Est GFR (MDRD) Non-Af 52 L BUN/Creatinine Ratio 12.8 Glucose 125 H Calcium 9.4 Total Bilirubin 1.00 AST 31 ALT 52 Alkaline Phosphatase 84 Total Protein 7.6 Albumin 3.8 Globulin 3.8 Albumin/Globulin Ratio 1.0 Lipase 106 Urine Color Yellow Urine Clarity Clear Urine pH 5.0 Ur Specific [place] 1.015 Urine Protein Negative Urine Glucose (UA) Normal Urine Ketones Negative Urine Occult Blood Negative Urine Nitrite Negative Urine Bilirubin Negative Urine Urobilinogen Normal Ur Leukocyte Esterase 100 H Urine RBC 5-10 SEEN Urine WBC 0 SEEN Ur Squamous Epith Cells 0-5 SEEN Urine Bacteria 0 SEEN Urine Mucus 0 SEEN Radiography Diagnostic Testing: Clinical Impression(s) from Imaging Studies Abdomen/Pelvis CT 08/05/21 17:20 IMPRESSION: Findings concerning for infectious or inflammatory enterocolitis. No focal fluid collection or free air Grade 1 anterolisthesis L4 on L5. Electronically Signed: Jaziel Figueroa MD at 19:32 EDT , ADDENDUM: 08/05/212115 Discharge Plan Triage Chief Complaint: Abd Pain ED Provider: Levi Khan Dx/Rx/DC Orders Clinical Impression: Abdominal pain, Diverticulitis Instructions: ED Diverticulitis Prescriptions: New metronidazole 500 mg tablet 500 mg PO TID 10 Days Qty: 30 RF: 0 ciprofloxacin HCl 500 mg tablet 500 mg PO BID 10 Days Qty: 20 RF: 0 hydrocodone-acetaminophen 5-325 mg tablet 1 tab PO Q6H PRN (Reason: pain) 6 Days Qty: 20 RF: 0 No Action sertraline 50 mg tablet 100 mg PO QHS RF: 0 losartan 25 MG tablet 25 mg PO QHS RF: 0 cannabidiol 100 MG/ML solution 50 mg PO DAILY PRN (Reason: Pain 1-10 Or Fever) RF: 0 acetaminophen 325 MG capsule 650 mg PO QHS RF: 0 calcium carbonate 500 MG tablet 500 mg PO DAILY RF: 0 cholecalciferol (vitamin D3) 1,000 UNIT tablet 1,000 unit PO BID RF: 0 rivaroxaban 20 MG tablet 20 mg PO DAILY 30 Days Qty: 30 RF: 1 anastrozole 1 MG tablet 1 mg PO DAILY Qty: 90 RF: 3 meclizine 25 mg tablet 25 mg PO Q8H PRN PRN (Reason: dizziness) Qty: 21 RF: 0 ondansetron [ondansetron] 4 MG tablet 8 mg PO Q8H PRN PRN (Reason: Nausea) Qty: 20 RF: 0 Primary Care Provider: Jeniffer Snow Referrals: Jeniffer Snow MD [Primary Care Provider] - Activity Restrictions/Additional Instructions: Plenty of fluids and rest. Cipro antibiotic 1 pill twice a day for 10 days. Flagyl antibiotic 1 pill 3 times a day for 10 days. Follow-up your primary care physician because sometimes they have to extend antibiotics for a longer period of time. [place] as needed for pain. You may need a stool softener in case you get constipated. Disposition Disposition: Home, Self Care
[2021-08-05] MEDS: 0.9% Normal Saline 1,000 ML 1000 ML IV (17:27)
[2021-08-05 17:36] LABS: Absolute Lymphocyte Count 0.89 X10^3/uL (0.83-4.51); Absolute Neutrophil Count 7.8 X10^3/uL (2.0-7.7); Basophil# 0.03 X10^3/uL; Basophil% 0.3 % (0-1); Eosinophil# 0.03 X10^3/uL; Eosinophils% 0.3 % (0-5); Hematocrit 39.7 % (37-47); Lymphocyte # 0.89 X10^3/ul (0.83-4.51); Lymphocyte % 9.5 % (19-41); Mean Corp Hgb Conc 35.3 g/dL (32-36); Mean Corpuscular Hgb 31.8 pg (27.0-32.0); Mean Corpuscular Volume 90.2 fL (81-99); Mean Platelet Vol. 10.3 fl (6.2-12.0); Monocyte# 0.66 X10^3/uL; NRBC Flagged by Analyzer 0 % (0-5); Neutrophil # 7.77 X10^3/uL (2.7-7.7); Neutrophil % 82.6 % (47-70); Platelet Count 235 K/mm3 (150-450); RBC Distribution Width CV 12.2 % (11.6-14.6); RBC Distribution Width SD 40.5 fl (35.1-43.9); White Blood Count 9.4 K/mm3 (4.4-11.0)
[2021-08-05 17:59] LABS: AST(SGOT) 31 U/L (15-37); Alanine Aminotransfer ALT/SGPT 52 U/L (13-56); Albumin, Serum 3.8 g/dL (3.2-5.0); Alkaline Phosphatase 84 U/L (45-117); Anion Gap 7 (5-15); BUN 14 mg/dL (7-18); BUN/Creat Ratio 12.8 RATIO (10-20); Calcium,Total 9.4 mg/dL (8.5-10.1); Chloride 105 mmol/L (98-107); Creatinine, Serum 1.09 mg/dL (0.55-1.02); EST Glomerular Filtration Rate 52 mL/min (>60); Est Glom Filt Rate - Afr Amer 63 mL/min (>60); Estimated Creatinine Clearance 41.75 ml/min; Globulin 3.8 g/dL (2.2-4.2); Glucose 125 mg/dL (74-106); Lipase 106 U/L (73-393); Protein, Total 7.6 g/dL (6.4-8.2); Sodium Level 135 mmol/L (136-145)
[2021-08-05 19:07] LABS: Bacteria 0 SEEN /hpf (None Seen); Mucous, Urine 0 SEEN /hpf (<or=2+); White Blood Cells 0 SEEN /hpf (0-5)
[2021-08-05 19:08] LABS: Color, Urine Yellow (Yellow); Glucose, Dipstick Normal (Normal); Ketone-Dipstick Negative (Negative); Leukocyte Esterase-Dipstick 100 /ul (Negative); Nitrite-Dipstick Negative (Negative); Occult Blood-Urine Negative /ul (Negative); Protein-Dipstick Negative (Negative); Specific Gravity, Urine 1.015 (1.002-1.030); Urine Bilirubin Dipstick Negative (Negative); Urine Clarity Clear (Clear); Urine Urobilinogen Normal (Normal)
[2021-08-05 19:15] LABS: Red Blood Cells-Urine 5-10 SEEN /hpf (0-5); Squamous Epithelial Cells - UA 0-5 SEEN /hpf (5-10)
[2021-08-05 21:48] VITALS: BP 157/76; PULSE 79; RESP 16; O2SAT 96
[2021-08-05] MEDS: Ciprofloxacin 500 MG Tablet PO (22:01)
[2021-08-05] MEDS: metroNIDAZOLE 500 MG Tablet PO (22:01)
== END 2021-08-05 22:05 | disposition home or self-care (01) ==
PROVIDERS: Emergency Provider Emergency Medicine; PCP Internal Medicine; Visit Provider Emergency Medicine
DX: K57.92 Diverticulitis of intestine, part unspecified, without perforation or abscess without bleeding (principal); Z87.891 Personal history of nicotine dependence
CPT/HCPCS: 74177; 80053; 81001; 83690; 85025; 87811; 96360; 96361; 99285; J7030; Q9967; A4216

== ENCOUNTER → 2021-09-24 | Outpatient (CLI) | payer MEDICARE, OTHER, SELFPAY ==
[2020-05-02 10:11] VITALS: BMI 29.4
--- NOTE | 2021-09-24 12:58 | US_ITS ---
STUDY: SUPERFICIAL ULTRASOUND - LEFT AXILLARY REGION. REASON FOR EXAM: Female, 76 years old. Eval left underarm. vague palpable lesion -- left axilla TECHNIQUE: A superficial ultrasound was performed with real-time and static sánchez-scale imaging. COMPARISON: None. FINDINGS: Targeted ultrasound of the left axillary region was obtained. No sonographic abnormality is seen. US/Ext Non Vasc Limited/Soft Tiss IMPRESSION: No sonographic abnormality is seen. Electronically Signed: Derrell Jensen MD at 12:34 EDT ,
== END | disposition home or self-care (01) ==
LOC: US 12:56
PROVIDERS: PCP Internal Medicine; Visit Provider Student in an Organized Health Care Education/Training Program
DX: C50.812 Malignant neoplasm of overlapping sites of left female breast (principal); Z17.0 Estrogen receptor positive status [ER+]
CPT/HCPCS: 76882

== ENCOUNTER 2021-10-22 05:26 | Day surgery (SDC) | payer MEDICARE, OTHER, SELFPAY ==
[2020-05-02 10:11] VITALS: BMI 29.4
[2021-10-22] VITALS (8 sets, daily range): BP systolic 61–108; BP diastolic 37–64; PULSE 65–73; RESP 16–18; TEMP 36.3–36.5; O2SAT 96–100; BMI 28.6
[2021-10-22] MEDS: Lactated Ringers 1,000 ML 15 ML IV (05:45)
--- NOTE | 2021-10-22 05:53 | HP.PCM_ITS ---
History and Physical Date of Admission: 10/22/21 Visit Reasons: DIVERTICULITIS Chief Complaint: diverticulitis f/u Allergies amoxicillin [From Augmentin] Allergy (Severe, Verified 10/09/21 09:20) Other clavulanic acid [From Augmentin] Allergy (Severe, Verified 10/09/21 09:20) Other sulfamethoxazole [From Bactrim] Allergy (Severe, Verified 10/09/21 09:20) Other trimethoprim [From Bactrim] Allergy (Severe, Verified 10/09/21 09:20) Other bee venom protein (honey bee) Adverse Reaction (Severe, Verified 10/09/21 09:20) Swelling tapentadol [From Nucynta] Adverse Reaction (Severe, Verified 10/09/21 09:20) Nausea/Vom/Diarrhea naproxen [From Naprosyn] Adverse Reaction (Intermediate, Verified 10/09/21 09:20) GI Upset Medications sertraline 50 mg tablet 100 mg PO QHS tab 03/01/20 [History Confirmed 09/22/21] cannabidiol 50 mg PO DAILY PRN 03/18/20 [History Confirmed 09/22/21] losartan 25 mg PO QHS 03/18/20 [History Confirmed 09/22/21] acetaminophen 650 mg PO QHS 05/02/20 [History Confirmed 09/22/21] calcium carbonate 500 mg PO DAILY 07/03/20 [History Confirmed 09/22/21] cholecalciferol (vitamin D3) 1,000 unit PO BID 07/03/20 [History Confirmed 09/22/21] anastrozole 1 mg PO DAILY #90 tab 04/30/21 [Rx Confirmed 09/22/21] meclizine 25 mg PO Q8H PRN PRN #21 tab 05/19/21 [Rx Confirmed 09/22/21] hydrocodone-acetaminophen 1 tab PO Q6H PRN 6 Days #20 tab 08/05/21 [Rx Confirmed 09/22/21] apixaban 5 mg tablet 5 mg PO tab 10/09/21 [History Confirmed 10/09/21] sertraline 100 mg tablet 100 mg PO tab 10/09/21 [History Confirmed 10/09/21] PFSH Medical History Arthritis Cancer of left female breast Compression fracture of T12 vertebra Hemorrhoids History of back problems History of pneumonia Mitral valve prolapse Pulmonary embolism Regional lymph node metastasis present Vaginal dryness Surgical History history bilateral foot surgery history bilateral reconstruction both hands History of back surgery History of bilateral knee replacement History of bilateral mastectomy (~04/01/20) History of open sigmoidectomy Family History Mother Cancer Aunt Cancer Social History Smoking Status: Former smoker second hand exposure: No alcohol intake: never substance use type: does not use seatbelt use: always do you feel safe at home: Yes HPI HPI HPI: ROWENA GUAMAN, is a 76 F who presents to the office today for surgical consultation regarding suspected diverticulitis. She had a previous appointment scheduled September 23, [address] Anson Whitmore and Dr. Gigi Gilman assist with following her for left breast cancer. Among her other medicines she is on rivaroxaban. Most recent laboratory of August 05, 2021 demonstrated a white count of 9.4 with a hemoglobin 14 hematocrit 39.7 and a platelet count of 235,000. A CT scan of the abdomen done August 05, 2021 suggesting findings suspicious for acute sigmoid diverticulitis with possible reactive small bowel enteritis. This was an IV contrasted study. There was no oral contrast. She was discharged from the emergency room on ciprofloxacin and Flagyl. She then thought she had discoloration of her urine. The abdominal pain and distention however resolved. She states that I have previously assisted her with a sigmoid colectomy for diverticular disease. When she eats popcorn she can upset her self. She recently had a greasy burger and fries and that caused some GI discomfort. She also has concerns that she can palpate some lumpiness in the left lateral mastectomy site. She has some intermittent stinging and tingling and discomfort at that site as well. HPI: ROWENA GUAMAN, is a 75 F who presents to the office today for surgical follow-up status post a therapeutic left mastectomy and prophylactic right mastectomy for invasive lobular carcinoma left breast 2 sites 3 o'clock position in 12 o'clock position. Her oncologist is Dr. Anson Whitmore. She did have postoperative urinary tract infection and pulmonary emboli. She is currently on Xarelto. She is hoping that that can be ceased soon because of her easy bruising. She has no complaints regarding shortness of breath or chest pain. Her chest wall soreness has improved subsequent to her surgery PI: ROWENA GUAMAN, is a 75 F who presents to the office today for surgical follow-up status post a prophylactic right mastectomy and a therapeutic left mastectomy with sentinel lymph node biopsy converted to a left axillary lymph node dissection. 75-year-old female. She is status post a left axillary sentinel lymph node biopsy which was converted to a left axillary lymph node this dissection associated with a left total mastectomy equaling a left modified radical mastectomy subsequent to sentinel node biopsy on April 01. 1 of 3 sentinel lymph nodes were positive for macro metastatic disease. She has a history of invasive lobular carcinoma in the outer mid left breast and invasive ductal carcinoma in the upper mid left breast. At her request at the same date a prophylactic right total mastectomy was performed. Most recent information in that regard reveals a Oncotype DX score of 13My previous breast cancer notes reflect the following Rowena Guaman is a 76-year-old female diagnosed with pathologic stage IIA, prognostic stage IB (pT1c pN1a Mx) grade 2 invasive lobular carcinoma (ER >95%, ME >95%, Her2 1+) of the 3 o'clock position of the left breast and pathologic stage IA (pT1a pN0 Mx) grade 1 invasive ductal carcinoma (ER >95%, ME >95%, Her2 0) of the 12 o'clock position of the left breast status post bilateral diagnostic mammography and left breast and axillary ultrasound (02/27/2020), left breast 3:00 and 12 o'clock position biopsies (03/01/2020), bilateral breast MRI (03/11/2020), left mastectomy and sentinel lymph node biopsy followed by axillary dissection (04/01/2020), and evaluation by medical oncology (04/29/2020). From 05/20/2020 - 06/17/2020 received adjuvant radiation therapy to the left chest wall and regional lymph nodes August 05, 2021 ADDENDUM by Jaziel Figueroa MD on 08/05/21 at 2109 ADDENDUM Findings are more concerning for acute diverticulitis with reactive enteritis. Electronically Signed: Jaziel Figueroa MD at 21:09 EDT , 08/05/212108Date cc: Dr. Levi Khan MD; Dr. Jeniffer Snow MD ~*Signed ADDENDUM by Jaziel Figueroa MD on 08/05/[address]/Abdomen/Pelvis W IV Cont ONLY 08/05/212115Date cc: Dr. Levi Khan MD; Dr. Jeniffer Snow MD ~*Signed INDICATION: LLQ pain EXAMINATION: CT Abdomen And Pelvis W/ Contrast Injection TECHNIQUE: Helically acquired images were obtained of the abdomen and pelvis after IV contrast. A radiation dose optimization technique was used for this scan. IV Contrast dosage and agent: IV 100mL Isovue-300 Oral contrast: None. COMPARISON: None. FINDINGS: Visualized lung bases: Stable right lower lobe granulomas. Liver: Simple 2.1 cm cyst in the inferior liver tip. Gallbladder: Unremarkable Spleen: Unremarkable Pancreas: Unremarkable Adrenal Glands: Unremarkable Kidneys: Unremarkable Vasculature: Mild scattered aortoiliac atherosclerotic calcifications. GI Tract: There is mild circumferential wall thickening of several loops of small bowel with surrounding mesenteric fat stranding. There is also mild short segment wall thickening of the sigmoid colon. Lymphadenopathy: None Peritoneum: No ascites. Bladder: Unremarkable Reproductive organs: Unremarkable Bones/Soft tissues: There are diffuse degenerative changes of the spine. Grade 1 anterolisthesis L4 on L5. CT/Abdomen/Pelvis W IV Cont ONLY IMPRESSION: Findings concerning for infectious or inflammatory enterocolitis. No focal fluid collection or free air Grade 1 anterolisthesis L4 on L5. Electronically Signed: Jaziel Figueroa MD at 19:32 EDT , ROS General General: Yes breast cancer; No weight change, appetite, fatigue, colon cancer or weakness HEENT HEENT: No difficulty swallowing, eye injury, eye surgery, swollen glands or hoarseness Endo Endocrine: No thyroid disease, diabetes mellitus, thyroid cancer, Hair loss, heat intolerance or cold intolerance Skin Skin: No rash or changing moles Breast Breast: No left breast lump, right breast lump, nipple discharge, breast pain, abnormal mammogram, abnormal US or breast enlargement Musc Musculoskeletal: Yes back problems and arthritis; No rheumatoid arthritis, gout or joint pain Cardio Cardiovascular: No murmur, pacemaker, heart disease, atrial fibrillation, high blood pressure, heart attack, heart stent, palpitations, shortness of breat with exertion or chest pain Psych Psychiatric: Yes depression and anxiety; No hearing voices Resp Respiratory: No shortness of breath, No sleep apnea, No cough, No COPD, No asthma, No emphysema and No wheezing Gastro Gastrointestinal: No abdominal pain, No nausea or vomiting, No diarrhea, No constipation, No blood in stool, No acid reflux, No hemorrhoids, No ulcers, No gallbladder problem and No black,tarry stools Iam Hematologic: Yes blood thinners, No blood disorders, No bleeding, No anemia and Yes blood clots Neuro Neurologic: No system reviewed and no additional complaints, except as documented, No as per HPI, No abnormal gait, No abnormal hearing, No abnormal movements, No abnormal speech, No behavioral changes, No burning sensations, No confusion, No convulsions, No disequilibrium, No dizziness, No localized weakness, No frequent falls, No headache(s), No lack of coordination, No loss of vision, No memory loss, No numbness, No other visual disturbances, No radicular pain, No restless legs, No sensory deficit, No syncope, No tingling, No tremor(s), No weakness and No other Exam Const General: cooperative, comfortable and no acute distress Nutritional Appearance: overweight Orientation: alert and awake [facility] Head: normal to inspection Eyes General: appearance normal, both eyes and all related structures Chest Other: Bilateral mastectomy: Excess skin bilateral axillary areas consistent with the patient's body habitus. Slight nodularity rubbery left lateral mastectomy incision with some superficial tenderness, no axillary adenopathy, this is superficial in the subcutaneous tissues. Resp Effort & Inspection: normal respiratory effort Auscultation: clear to auscultation bilaterally Cardio Rate: regular rate Rhythm: regular rhythm GI Other: Soft, nontender Neuro General: patient alert and patient awake Extrem General: no calf tenderness Psych Appearance: grossly normal Assessment and Plan Assessment and Plan (1) Cancer of left female breast : Status: Chronic Qualifiers: Breast location: overlapping sites of breast Estrogen receptor status: positive Qualified Code(s): C50.812 - Malignant neoplasm of overlapping sites of left female breast; Z17.0 - Estrogen receptor positive status [ER+] (2) Colitis: Status: Acute Plan - Dr. Edenilson Abraham MD: The patient has 2 separate issues today. Concerns about the left lateral mastectomy site in the subcutaneous tissue seems to be very much consistent with postoperative changes likely some suture granulomas. This is not in the area of axillary lymph nodes. Tenderness would be consistent with the sentinel lymph node biopsy performed. On clinical examination findings are not remarkable and I recommend conservative follow-up particularly as the patient herself is able to check and track this issue. She will notify us if there is any progression. Regarding the patient's episode of abdominal pain 2 months ago unfortunately that was a IV contrasted CT scan only. There was no oral contrast. The radiologist initially diagnosed enteritis and then converted and suggested possible diverticulitis. The patient has had a previous sigmoid resection for diverticular disease. On my review of the images I find them difficult to interpret. I believe that a oral contrasted study would have been a more definitive means. I do however recommend a colonoscopy with very careful inspection of the left lower quadrant area. The patient is aware that inspection of the small bowel will not be possible with a colonoscopy. If she has ongoing processes suggesting small bowel issues then that would need to be evaluated with a small bowel follow-through or CT enteroclysis. Patient currently however is not complaining of abdominal distention or pain. She did have an episode of rectal bleeding with that was after eating a burger and fries and she believes that she irritated her colon at that time. Recommend a colonoscopy with possible biopsy or polypectomy. Very careful inspection for residual diverticular disease and or active colitis will be pursued. Pending those results can determine whether she requires any additional testing but at this point her abdominal exam is quite benign I appreciate the ongoing opportunity of assisting with her surgical care Copy: Dr. Jeniffer Snow and Dr. Anson Abraham M.D., F.A.C.S I have re-examined the patient. There are no clinical changes since date of exam.
--- NOTE | 2021-10-22 06:30 | COLBX_PTH ---
PATIENT: ROWENA GUAMAN LOC: EN U#:[id number] AGE/SX: 76/F ROOM: RE10/22/[address]: Dr. Edenilson Abraham MD : 1945 BED: DIS: 10/22/2021 SPEC #: [id number] RECD: 10/22/21 08:03 STATUS: ALBERTO WEIR #: [id number] SANGEETA: 10/22/21 06:[address]: Edenilson Abraham DEPT: SURGICAL PATHOLOGY RECD BY: Gina Travis ENTERED: 10/22/21 08:28 SP TYPE: COLON BX OTHR DR: Dr. Jeniffer Snow MD Tissues: A - Cecum, NOS B - Rectum, NOS Procedures: Surgery Specimen Level IV HEADER OPERATION: Colonoscopy PRE-OP DIAGNOSIS: Suspected diverticulitis TISSUE SUBMITTED: A ? Cecum polyp, B ? Rectal polyps x2 MICROSCOPIC DIAGNOSIS A. Cecum polyp, biopsy: Fragments of hyperplastic polyp. B. Rectal polyps x2, biopsy: Fragments of hyperplastic polyp. KIMBERLY:kavon 10/23/2021 MICROSCOPIC DESCRIPTION Slides are reviewed. GROSS DESCRIPTION A - Received in fixative is one container labeled with the patient's name and designated cecum polyp. The specimen consists of multiple irregular fragments of garcia-pink soft tissue mixed with fecal material that in aggregate measure 3 x 1 x 0.3 cm. The largest fragment measures 1 cm in greatest dimension. The specimen is totally submitted in one cassette. B - Received in fixative is one container labeled with the patient's name and designated rectal polyp x2. The specimen consists of multiple irregular fragments of light garcia soft tissue that in aggregate measure 1 x 0.3 x 0.1 cm. The specimen is totally submitted in one cassette. / KIMBERLY:kavon 10/22/2021 TC:1 CPT: 80537 x2
--- NOTE | 2021-10-22 07:36 | OP.CCLET_ITS ---
10/22/2021 Jeniffer Snow [address] [place] [address] Re : Colonoscopy procedure for Kasey Hilton Dear Dr. Snow This procedure was performed on Friday, October 22, 2021. My impressions and recommendations are as follows: Impressions : - Non-thrombosed internal hemorrhoids and internal hemorrhoids that prolapse with straining, but spontaneously regress to the resting position (Grade II) found on digital rectal exam. - One 12 mm polyp in the cecum, removed using injection-lift and a hot snare. Resected and retrieved. Clips were placed. - Two 4 to 5 mm polyps in the rectum, removed with a cold biopsy forceps. Resected and retrieved. - Patent end-to-end colo-colonic anastomosis, characterized by healthy appearing mucosa. No signs of left colonic inflammation. No obvious visible diverticula. Recommendations : - Discharge patient to home. - Resume previous diet. - Continue present medications. - Repeat colonoscopy in 5 years for surveillance based on pathology results. - Telephone my office for pathology results in 1 week. My findings are described in the full procedure note, which is enclosed. If I can be of further assistance, please feel free to contact me at Doctor phone number(s): Work: . Sincerely, Edenilson Abraham MD 10/22/2021 7:36:07 AM This report has been signed electronically.
--- NOTE | 2021-10-22 07:36 | OP.COLON_ITS ---
Patient Name: Kasey Hilton Procedure Date: 10/22/2021 6:20 AM Date of : 1945 Age: 76 Procedure: Colonoscopy Indications: Abdominal pain in the left lower quadrant Providers: Edenilson Abraham MD Medicines: See the Anesthesia note for documentation of the administered medications Patient Profile: Last Colonoscopy: date unknown. Complications: No immediate complications. Procedure: Pre-Anesthesia Assessment: - Prior to the procedure, a History and Physical was performed, and patient medications and allergies were reviewed. The patient's tolerance of previous anesthesia was also reviewed. The risks and benefits of the procedure and the sedation options and risks were discussed with the patient. All questions were answered, and informed consent was obtained. Prior Anticoagulants: The patient has taken no previous anticoagulant or antiplatelet agents. ASA Grade Assessment: II - A patient with mild systemic disease. After reviewing the risks and benefits, the patient was deemed in satisfactory condition to undergo the procedure. After I obtained informed consent, the scope was passed under direct vision. Throughout the procedure, the patient's blood pressure, pulse, and oxygen saturations were monitored continuously. The Colonoscope was introduced through the anus and advanced to the cecum, identified by appendiceal orifice and ileocecal valve. The ileocecal valve and the appendiceal orifice were photographed. Scope In: 6:38:13 AM Scope Withdrawal Time 0 hours 45 minutes 38 seconds Scope Out: 7:26:47 AM Total Procedure Duration Time 0 hours 48 minutes 34 seconds Findings: The digital rectal exam findings include non-thrombosed internal hemorrhoids and internal hemorrhoids that prolapse with straining, but spontaneously regress to the resting position (Grade II). A 12 mm polyp was found in the cecum. The polyp was sessile. The polyp was removed with a saline injection-lift technique using a hot snare. Resection and retrieval were complete. To prevent bleeding post-intervention, two hemostatic clips were successfully placed. There was no bleeding at the end of the procedure. Two sessile polyps were found in the rectum. The polyps were 4 to 5 mm in size. These polyps were removed with a cold biopsy forceps. Resection and retrieval were complete. There was evidence of a prior end-to-end colo-colonic anastomosis in the distal sigmoid colon. This was patent and was characterized by healthy appearing mucosa. Impression: - Non-thrombosed internal hemorrhoids and internal hemorrhoids that prolapse with straining, but spontaneously regress to the resting position (Grade II) found on digital rectal exam. - One 12 mm polyp in the cecum, removed using injection-lift and a hot snare. Resected and retrieved. Clips were placed. - Two 4 to 5 mm polyps in the rectum, removed with a cold biopsy forceps. Resected and retrieved. - Patent end-to-end colo-colonic anastomosis, characterized by healthy appearing mucosa. No signs of left colonic inflammation. No obvious visible diverticula. Recommendation: - Discharge patient to home. - Resume previous diet. - Continue present medications. - Repeat colonoscopy in 5 years for surveillance based on pathology results. - Telephone my office for pathology results in 1 week. Procedure Code(s): --- Professional --- 44558, Colonoscopy, flexible; with removal of tumor(s), polyp(s), or other lesion(s) by snare technique 74722, Colonoscopy, flexible; with directed submucosal injection(s), any substance 31625, 59, Colonoscopy, flexible; with biopsy, single or multiple Diagnosis Code(s): --- Professional --- K64.1, Second degree hemorrhoids D12.0, Benign neoplasm of cecum K62.1, Rectal polyp Z98.0, Intestinal bypass and anastomosis status R10.32, Left lower quadrant pain CPT copyright 2017 [employer]. All rights reserved. The codes documented in this report are preliminary and upon internet designer review may be revised to meet current compliance requirements. Edenilson Abraham MD 10/22/2021 7:36:07 AM This report has been signed electronically. Number of Addenda: 0 Note Initiated On: 10/22/2021 6:20 AM
== END 2021-10-22 08:26 | disposition home or self-care (01) ==
LOC: EN 05:27 → AC 05:27
PROVIDERS: PCP Internal Medicine; Referring Provider Internal Medicine; Visit Provider Surgery
PROC: 0DJD8ZZ Inspection of Lower Intestinal Tract, Via Natural or Artificial Opening Endoscopic (ICD-10-PCS; CPT 45378; principal; 2021-10-22 06:25)
DX: K64.1 Second degree hemorrhoids (principal); C50.812 Malignant neoplasm of overlapping sites of left female breast; K62.1 Rectal polyp; K63.5 Polyp of colon; F32.A Depression, unspecified; F41.9 Anxiety disorder, unspecified; I10 Essential (primary) hypertension; Z87.891 Personal history of nicotine dependence; Z79.899 Other long term (current) drug therapy; Z86.711 Personal history of pulmonary embolism; Z86.718 Personal history of other venous thrombosis and embolism; Z98.0 Intestinal bypass and anastomosis status
CPT/HCPCS: 45385; 45380; 45381; 88305; J7120; A4216; J2405

== ENCOUNTER → 2021-10-25 | Outpatient (CLI) | payer MEDICARE, OTHER, SELFPAY ==
[2020-05-02 10:11] VITALS: BMI 29.4
== END | disposition home or self-care (01) ==
PROVIDERS: PCP Internal Medicine; Referring Provider Physician Assistant Surgical; Visit Provider Physician Assistant Surgical
DX: N39.0 Urinary tract infection, site not specified (principal)

== ENCOUNTER 2021-11-19 14:30 | Outpatient (RCR) | payer MEDICARE, OTHER, SELFPAY ==
[2020-05-02 10:11] VITALS: BMI 29.4
--- NOTE | 2021-11-18 16:55 | HP.PTEVAL_ITS ---
Patient's Visit Information ROWENA GUAMAN is a 76 year old F referred to Physical Therapy by CATY Walter with a diagnosis of vertigo. Date of Evaluation: 11/18/21 Physical Therapist: Livan Aguilar, AMANDAT, OCS, CSCS - Visit Plan Frequency: 1x/Week Duration: 4-6 Weeks Plan: weekly as needed for habituation and positional checks. Doing BD 8 reps daily currently as well as head turns in sitting. - Subjective May 19 coming back from [place] rolled over at night and world spun. Went to ER with vertigo and had Catscan and had BPPV. Doctor treated her for that eventually which helped. Had two adjustments and felt much better. Everything was good. About a week ago Wednesday she roled over in bed and started spinning again, settled down and tried Eladio procedure that she was shown and paniced. Tried again two days later as she was still dizzy. Has been being careful of getting on L side, needs crystals reset. Has avoided moving head lately as her eyes have to catch up. Avoids bending over. Feels weak and shaky. Being upright is fatiguing. Turning head quickly is dizzying. Balance is off lately, no falls. Did not shower for several days and now needs to hold on. - Objective Walks slowly but I back to PT, avoids moving head. Transitions i with UE. steps require rail and reciprocal, slow. Cervical aROM L about 45 and R 65, extension slow and hesitant but 40. UE AROM WFL. - B hallpike rhona. - roll test. Oculomotor un remarkable: no nystagmus with gaze or head shake but only willing to shake slow. seems to have anxiety with moving head. - head thrust. - ocular tilt. - skew eye deviaiton. Normal pursuit and saccades and convergence. VOR slightly dizzy after 30 sec trasniently - Balance/Special Test Scores Functional Gait Assessment Score: 24 % Disability: 20.0000 Dizziness Score: 66 - Goals Goal 1:: Full cervical aROM without hesitation during gait Goal Time Frame: 4-6 Weeks Goal 2:: FGA Goal Time Frame: 4-6 Weeks Goal 3:: Dizzyness feel 98% improved Goal Time Frame: 4-6 Weeks Goal 4:: DHI score 15 or less. Goal Time Frame: 4-6 Weeks - Rehabilitation Potential Physical Therapy Diagnosis: reso,ving BPPV is likely, fear avoidance of head movement. Rehabilitation Potential: Fair - Anticipated Interventions Patient/Client Instruction: Educate patient on: Condition, Plan of Care For the Purpose of:: To increase tolerance to activity/condition/position, To improve ability of physical actions for home/community/work/leisure, To improve safety Therapeutic Exercise to Include: Balance training Comment: habituation, positional, vestibular ex. For the Purpose of:: To increase tolerance to activity/condition/position, To improve gait and locomotor functions, To improve balance Thank you for the opportunity to evaluate your patient. For Medicare and Medicare HMO plans, please review the plan of care and approve it. It will need to be FAXED BACK to us at [phone] for Medicare purposes. For Medicare only, by signing this I certify the plan of care. Please let me know if there are questions or concerns regarding this plan of care. Physician Signature: Date:
--- NOTE | 2022-02-03 13:00 | HP.PT.NRP ---
ROWENA GUAMAN was seen in my office for initial evaluation on 11/18/21. The following Plan of Care was established for this patient: Initial Frequency: 1x/Week Initial Duration: 4-6 Weeks Patient/Client Instruction: Educate patient on: Condition, Plan of Care For the Purpose of:: To increase tolerance to activity/condition/position, To improve ability of physical actions for home/community/work/leisure, To improve safety Therapeutic Exercise to Include: Balance training For the Purpose of:: To increase tolerance to activity/condition/position, To improve gait and locomotor functions, To improve balance This patient was last seen in our office 11/19/21. Pertinent comments regarding their Physical therapy will appear below: Pt seen 2 visits of POC and was slightly better. Was to f/u a week later but no showed for that visit and neglected to reschedule. At this point, it has been over 2 months and I will discontinue from my care due to nonattendance. At this point I will be discontinuing this patient from physical therapy. I would be happy to see this patient again in the future if found appropriate by the physician. Thank you! Livan Aguilar, DPT, OCS, CSCS Balance/Gait/Functional tests - Balance/Special Test Scores Functional Gait Assessment Score: 24 % Disability: 20.0000 Dizziness Score: 66
== END 2021-11-19 19:00 | disposition home or self-care (01) ==
LOC: PT 14:30
PROVIDERS: PCP Internal Medicine; Referring Provider Clinical Nurse Specialist; Visit Provider Clinical Nurse Specialist
DX: R42 Dizziness and giddiness (principal)
CPT/HCPCS: 97110; 97161; 97530

== ENCOUNTER → 2022-03-20 | Outpatient (CLI) | payer MEDICARE, OTHER, SELFPAY ==
[2022-01-22 15:13] VITALS: BMI 29.4
[2022-03-20 09:55] LABS: Mucous, Urine 0 SEEN /hpf (<or=2+); Squamous Epithelial Cells - UA 0 SEEN /hpf (5-10)
[2022-03-20 09:58] LABS: Color, Urine Amber (Yellow); Glucose, Dipstick Normal (Normal); Ketone-Dipstick 5 mg/dl (Negative); Leukocyte Esterase-Dipstick 500 /ul (Negative); Nitrite-Dipstick Positive (Negative); Occult Blood-Urine 250 /ul (Negative); Protein-Dipstick 30 mg/dl (Negative); Specific Gravity, Urine 1.015 (1.002-1.030); Urine Clarity Clear (Clear); Urine Urobilinogen 8 mg/dl (Normal)
[2022-03-20 10:00] LABS: Urine Bilirubin Dipstick 3 mg/dL (Negative)
[2022-03-20 10:11] LABS: Bacteria 3+ /hpf (None Seen); Red Blood Cells-Urine 10-25 SEEN /hpf (0-5); White Blood Cells 10-25 SEEN /hpf (0-5)
== END | disposition home or self-care (01) ==
PROVIDERS: PCP Internal Medicine; Visit Provider Physician Assistant
DX: N39.0 Urinary tract infection, site not specified (principal); R30.0 Dysuria
CPT/HCPCS: 81001; 87077; 87086; 87088; 87186

== ENCOUNTER → 2022-07-23 | Outpatient (CLI) | payer MEDICARE, OTHER, SELFPAY ==
[2022-01-22 15:13] VITALS: BMI 29.4
--- NOTE | 2022-07-23 14:59 | US_ITS ---
STUDY: ULTRASOUND BREAST - LEFT REASON FOR EXAM: Female, 77 years old. Palpable lump in the upper outer aspect of the left breast. TECHNIQUE: Axial and longitudinal images of the LEFT breast were performed with a high resolution ultrasound transducer. # OF IMAGES: 40 COMPARISON: None. FINDINGS: LEFT Breast: The patient is status post left mastectomy. The mastectomy site was examined. There is a 6 mm x 4 mm x 3 mm lymph node in the region of the palpable abnormality. US/Breast Limited Unilateral IMPRESSION: 6 mm x 4 mm x 3 mm benign-appearing lymph node in the region of the palpable abnormality. ASSESSMENT CATEGORY: BIRADS Category 2: Benign. A letter regarding these results will be sent to the patient by the facility within 30 days. Electronically Signed: Derrell Jensen MD at 13:11 EST ,
== END | disposition home or self-care (01) ==
LOC: OPUS 14:55
PROVIDERS: PCP Internal Medicine; Visit Provider Student in an Organized Health Care Education/Training Program
DX: N63.21 Unspecified lump in the left breast, upper outer quadrant (principal)
CPT/HCPCS: 76642

== ENCOUNTER → 2023-01-14 | Outpatient (CLI) | payer MEDICARE, OTHER, SELFPAY ==
[2022-01-22 15:13] VITALS: BMI 29.4
== END | disposition home or self-care (01) ==
LOC: LABSPEC 15:53
PROVIDERS: PCP Internal Medicine; Referring Provider Otolaryngology Otolaryngology/Facial Plastic Surgery; Visit Provider Otolaryngology Otolaryngology/Facial Plastic Surgery
DX: J32.9 Chronic sinusitis, unspecified (principal)
CPT/HCPCS: 87070; 87077; 87205

== ENCOUNTER → 2023-03-11 | Outpatient (CLI) | payer MEDICARE, OTHER, SELFPAY ==
[2022-01-22 15:13] VITALS: BMI 29.4
[2023-03-11 15:40] LABS: Mucous, Urine 0 SEEN /hpf (<or=2+)
[2023-03-11 16:07] LABS: Color, Urine Yellow (Yellow); Glucose, Dipstick Normal (Normal); Ketone-Dipstick Negative (Negative); Leukocyte Esterase-Dipstick 500 /ul (Negative); Nitrite-Dipstick Negative (Negative); Occult Blood-Urine 50 /ul (Negative); Protein-Dipstick Negative (Negative); Urine Bilirubin Dipstick Negative (Negative); Urine Clarity Sl. Cloudy (Clear); Urine Urobilinogen Normal (Normal)
[2023-03-11 16:15] LABS: White Blood Cells 10-25 SEEN /hpf (0-5)
[2023-03-11 16:16] LABS: Bacteria RARE /hpf (None Seen); Red Blood Cells-Urine 0-5 SEEN /hpf (0-5); Squamous Epithelial Cells - UA 0-5 SEEN /hpf (5-10)
== END | disposition home or self-care (01) ==
LOC: LABSPEC 15:10
PROVIDERS: PCP Internal Medicine; Referring Provider Physician Assistant Surgical; Visit Provider Physician Assistant Surgical
DX: R30.0 Dysuria (principal)
CPT/HCPCS: 81001; 87077; 87086; 87088; 87186

== ENCOUNTER 2023-03-14 15:53 | Emergency (ER) | payer MEDICARE, OTHER, SELFPAY ==
[2022-01-22 15:13] VITALS: BMI 29.4
[2023-03-14 15:54] VITALS: BP 119/70; PULSE 80; RESP 18; TEMP 36.1; O2SAT 98; BMI 31.6
--- NOTE | 2023-03-14 17:25 | EDS_ITS ---
HPI History of Present Illness Chief Complaint: Laceration Narrative Narrative: Patient is a 78-year-old female who is presenting to the ER with chief complaint is a small skin avulsion to the left thumb, distal aspect. This approximate 0.5 cm x 0.5 cm oval skin flap. Superficial. Patient is on Eliquis. Patient stated this happened approximate 30 minutes prior to arrival. Patient was using a clean kitchen knife. Patient washed her hands, still has a bleeding, so she came into the ER for evaluation. Patient thinks her last tetanus shot was approximately 2007. Patient has no other acute complaints. [facility] Medical History Anxiety Arthritis Back pain Cancer Cancer of left female breast Cardiology follow-up encounter Compression fracture of T12 vertebra Depression DVT (deep venous thrombosis) Former smoker Hemorrhoids History of back problems History of diverticulitis History of pneumonia Hypertension Mitral valve prolapse Pulmonary embolism Pulmonary embolism Regional lymph node metastasis present Urinary tract infection with hematuria Vaginal dryness Vertigo Wears hearing aid Home Medications sertraline 50 mg tablet 100 mg PO QHS 03/01/20 [History Last Taken Unknown] cannabidiol 100 mg/mL oral solution 50 mg PO DAILY PRN Pain 1-10 Or Fever 03/18/20 [History Last Taken Unknown] losartan 25 mg tablet 25 mg PO QHS 03/18/20 [History Last Taken 03/31/20 22:00 25 MG] acetaminophen 325 mg capsule 650 mg PO QHS 05/02/20 [History Last Taken Unknown] calcium carbonate 500 mg calcium (1,250 mg) tablet 500 mg PO DAILY 07/03/20 [History Last Taken Unknown] cholecalciferol (vitamin D3) 25 mcg (1,000 unit) tablet 1,000 unit PO DAILY 07/03/20 [History Last Taken Unknown] folic acid 20 mg capsule 20 mg PO DAILY 05/26/22 [History Last Taken Unknown] mecobalamin (vitamin B12) 1,000 mcg chewable tablet 1,000 mcg PO DAILY 05/26/22 [History Last Taken Unknown] potassium chloride 10 mEq capsule,extended release 10 meq PO DAILY 05/26/22 [History Last Taken Unknown] anastrozole 1 mg tablet 1 mg PO DAILY #30 tabs 11/24/22 [Rx Last Taken Unknown] lorazepam 0.5 mg tablet 0.5 mg PO BID PRN anxiety 11/24/22 [History Last Taken Unknown] apixaban 5 mg tablet 5 mg PO BID #180 tabs 02/22/23 [Rx Last Taken Unknown] ciprofloxacin HCl 500 mg tablet (Cipro) 500 mg PO BID 5 days #10 tabs 03/11/23 [Rx Last Taken Unknown] Allergy/AdvReac Type Severity Reaction Status Date / Time amoxicillin [From Augmentin] Allergy Severe Other Verified 03/14/23 15:54 clavulanic acid Allergy Severe Other Verified 03/14/23 15:54 [From Augmentin] sulfamethoxazole Allergy Severe Other Verified 03/14/23 15:54 [From Bactrim] trimethoprim [From Bactrim] Allergy Severe Other Verified 03/14/23 15:54 bee venom protein (honey bee) AdvReac Severe Swelling Verified 03/14/23 15:54 tapentadol [From Nucynta] AdvReac Severe Nausea/Vom/ Verified 03/14/23 15:54 Diarrhea naproxen [From Naprosyn] AdvReac Intermediate GI Upset Verified 03/14/23 15:54 Family History Mother Cancer Aunt Cancer Surgical History history bilateral foot surgery history bilateral reconstruction both hands History of back surgery History of bilateral knee replacement History of bilateral mastectomy (~04/01/20) History of open sigmoidectomy Social History Smoking Status: Former smoker second hand exposure: No alcohol intake: never substance use type: does not use seatbelt use: always do you feel safe at home: Yes ROS ROS ED ROS Narrative REVIEW OF SYSTEMS: Unless otherwise stated in this report the patient's positive and negative responses for review of systems for constitutional, eyes, ENT, cardiovascular, respiratory, gastrointestinal, neurological, , musculo skeletal, and integument systems and related systems to the presenting problem are either stated in the history of present illness or were not pertinent or were negative for the symptoms and/or complaints related to the presenting medical problem. EXAM Physical Exam Narrative Exam Narrative: Vital signs reviewed and patient is not hypoxic. General: The patient appears well and in no apparent distress. Patient is resting comfortably on cart. Not toxic, lethargic, or listless. Skin: Warm, dry, no pallor noted. There is no rash noted. Patient has a 0.5 x 0.5 cm skin avulsion, oval-shaped, to the distal aspect of the left thumb. Patient has slow intermittent venous bleeding, no pulsatile bleeding. There is no nail involvement. No other acute findings. Head: Normocephalic, atraumatic Eye: Normal conjunctiva, no drainage, EOMI. PERRL. Ears, Nose, Mouth, and Throat: oral mucosa is moist. Cardiovascular: Regular Rate and Rhythm, no murmurs, gallops, or rubs Respiratory: Patient is in no distress, no accessory muscle use, lungs are clear to auscultation, no wheezing, rales or rhonchi Musculoskeletal: The patient has full range of motion of all extremities and joints with no difficulty. Patient has no motor, no sensory deficits. Neurological: A&O x4, normal speech, no focal neurological deficits. Psychiatric: Cooperative Const Vital Signs: 03/14/23 15:54 Temperature 96.9 F L Temperature Source Temporal Pulse Rate 80 Respiratory Rate 18 Blood Pressure 119/70 Blood Pressure Mean 86 Pulse Ox 98 MDM MDM MDM Narrative Medical decision making narrative: Patient has the wound cleaned by nursing staff. Patient has Surgicel, Telfa, and a modified pressure dressing with tube gauze to help place pressure and control the bleeding. Patient will leave the dressing on until tomorrow, then she will take it off. Education using topical antibiotic ointment 3-4 times a day was done at bedside and on discharge paperwork. Patient will follow-up with PCP. No questions at discharge. Discharge Plan Triage Chief Complaint: Laceration ED Provider: Ronen Nails Dx/Rx/DC Orders Clinical Impression: Avulsion of skin of left thumb Instructions: ED Skin Avulsion Prescriptions: No Action potassium chloride 10 mEq capsule, extended release 10 meq PO DAILY folic acid 20 mg capsule 20 mg PO DAILY mecobalamin (vitamin B12) 1,000 mcg tablet,chewable 1,000 mcg PO DAILY lorazepam 0.5 mg tablet 0.5 mg PO BID PRN (Reason: anxiety) apixaban 5 mg tablet 5 mg PO BID Qty: 180 4RF ciprofloxacin HCl [Cipro] 500 mg tablet 500 mg PO BID 5 Days Qty: 10 0RF sertraline 50 mg tablet 100 mg PO QHS losartan 25 MG tablet 25 mg PO QHS cannabidiol 100 MG/ML solution 50 mg PO DAILY PRN (Reason: Pain 1-10 Or Fever) acetaminophen 325 MG capsule 650 mg PO QHS calcium carbonate 500 MG tablet 500 mg PO DAILY cholecalciferol (vitamin D3) 1,000 UNIT tablet 1,000 unit PO DAILY anastrozole 1 mg tablet 1 mg PO DAILY Qty: 30 0RF Primary Care Provider: Jeniffer Snow Referrals: Jeniffer Snow MD [Primary Care Provider] - Activity Restrictions/Additional Instructions: Use topical antibiotic ointment 2-3 times a day to help wound healing and help prevent infection. You had a tetanus update today, your TdaP is good for the next 10 years. Disposition Disposition: Home, Self Care
[2023-03-14] MEDS: Diphth,Pertuss(Acell),Tet Vac 0.5 ML Vial IM (17:30)
== END 2023-03-14 17:44 | disposition home or self-care (01) ==
PROVIDERS: Emergency Provider Emergency Medicine; PCP Internal Medicine; Visit Provider Emergency Medicine
DX: S61.012A Laceration without foreign body of left thumb without damage to nail, initial encounter (principal); Z87.891 Personal history of nicotine dependence; I10 Essential (primary) hypertension; Z79.01 Long term (current) use of anticoagulants; W26.0XXA Contact with knife, initial encounter; Z86.718 Personal history of other venous thrombosis and embolism; Z23 Encounter for immunization
CPT/HCPCS: 90471; 90715; 99282

== ENCOUNTER → 2023-03-24 | Outpatient (CLI) | payer MEDICARE, OTHER, SELFPAY ==
[2022-01-22 15:13] VITALS: BMI 29.4
--- NOTE | 2023-03-24 18:31 | CT_ITS ---
EXAM: CT CHEST WITH INTRAVENOUS CONTRAST CLINICAL INDICATION: left breast cancer, CW and axillary symptoms -- eval for disease recurrence TECHNIQUE: Helically acquired images were obtained of the chest with intravenous contrast. This CT exam was performed using one or more of the following dose reduction techniques: automated exposure control, adjustment of the mA and/or kV according to patient size, and/or use of iterative reconstruction technique. CONTRAST: 100 ML ISOVUE 300 COMPARISON: CTA chest, 04/10/2020, CT therapy, 05/03/2020; CT abdomen and pelvis, 08/05/2021 FINDINGS: LUNGS AND PLEURAL SPACES: Densely calcified granulomas in the right lung are present and unchanged. Apparent fibrotic changes in the left upper lobe likely due to radiotherapy. Mild nonspecific focal pleural thickening in the posterior left hemithorax. No mass. No pneumothorax. HEART: No significant abnormality. Heart size is normal. No pericardial effusion. MEDIASTINUM: No significant abnormality. No mediastinal or hilar adenopathy. Esophagus is unremarkable. No hiatal hernia. THYROID: No significant abnormality. No thyroid lesions. BONES/JOINTS: Degenerative changes in the spine. No discrete lytic or blastic osseous lesions. SOFT TISSUES: Status post bilateral mastectomy. There is no evidence of chest wall soft tissue mass. VASCULATURE: Atherosclerosis of the aorta. Thoracic aorta is non-dilated. No thoracic aortic dissection. No obvious central pulmonary embolism although this study was not performed with the pulmonary embolism protocol. LYMPH NODES: Status post left axillary lymph node dissection with multiple surgical clips. There is a small left axillary lymph node measuring 0.9 cm which is likely unchanged since 05/03/2020. No pathologically enlarged lymph nodes or mass is identified in the left axillary region. CT/Chest WITH Contrast IMPRESSION: 1. Status post bilateral mastectomy. Associated left axillary lymph node dissection. 2. There is a small left axillary lymph node measuring 0.9 cm which is likely unchanged since 05/03/2020. No pathologically enlarged lymph nodes or mass is identified in the left axillary region. 3. There is no evidence of chest wall soft tissue mass. There is no evidence of additional acute pathology in the chest. Electronically Signed: Flako Vasquez DO at 22:14 EST ,
== END | disposition home or self-care (01) ==
LOC: CT 18:27
PROVIDERS: PCP Internal Medicine; Visit Provider Student in an Organized Health Care Education/Training Program
DX: C50.912 Malignant neoplasm of unspecified site of left female breast (principal)
CPT/HCPCS: 71260; Q9967

== ENCOUNTER → 2023-04-28 | Outpatient (CLI) | payer MEDICARE, OTHER, SELFPAY ==
[2022-01-22 15:13] VITALS: BMI 29.4
[2023-04-28 14:39] LABS: Erythrocyte Sedimentation Rate 18 mm/hr (0-30)
[2023-04-28 15:36] LABS: AST(SGOT) 20 U/L (15-37); Alanine Aminotransfer ALT/SGPT 37 U/L (13-56); Albumin, Serum 3.8 g/dL (3.2-5.0); Alkaline Phosphatase 80 U/L (45-117); Anion Gap 6 (5-15); BUN 20 mg/dL (7-18); BUN/Creat Ratio 21.3 RATIO (10-20); CRP < 2.90 mg/L (0.0-3.0); Calcium,Total 9.3 mg/dL (8.5-10.1); Chloride 111 mmol/L (98-107); Creatinine, Serum 0.94 mg/dL (0.55-1.02); EST Glomerular Filtration Rate 61 mL/min (>60); Est Glom Filt Rate - Afr Amer 74 mL/min (>60); Globulin 3.9 g/dL (2.2-4.2); Glucose 113 mg/dL (74-106); Protein, Total 7.7 g/dL (6.4-8.2); Sodium Level 140 mmol/L (136-145); Vitamin B12 > 2000 pg/mL (211-911)
[2023-05-04 12:09] LABS: Albumin 3.9 g/dL (2.9-4.4); Alpha-1-Globulins 0.2 g/dL (0.0-0.4); Alpha-2-Globulins 0.8 g/dL (0.4-1.0); Arsenic 7245 2 ug/L (0-9); Gamma Globulin 1.2 g/dL (0.4-1.8); IMMUNOFIXATION RESULT,S Comment: (.); Immunoglobulin A 171 mg/dL (64-422); Immunoglobulin G 1075 mg/dL (586-1602); Immunoglobulin M 322 mg/dL (26-217); Lead, Blood 1.1 ug/dL (0.0-3.4); Mercury, Blood 85324 < 1.0 ug/L (0.0-14.9); PROEL- TOTAL PROTEIN 7.1 g/dL (6.0-8.5); PROELU- Albumin, Urine 52.6 % (.); PROELU- Alpha-1-Globulin,Ur 0.6 % (.); PROELU- Alpha-2-Globulin,Ur 10.3 % (.); PROELU- Beta Globulin, Ur 21.3 % (.); PROELU- Gamma Globulin, Ur 15.3 % (.)
== END | disposition home or self-care (01) ==
LOC: PAVLAB 13:59
PROVIDERS: PCP Internal Medicine; Referring Provider Psychiatry & Neurology Neurology; Visit Provider Psychiatry & Neurology Neurology
DX: G62.9 Polyneuropathy, unspecified (principal)
CPT/HCPCS: 36415; 80053; 82175; 82607; 82784; 83655; 83825; 84165; 84166; 85652; 86140; 86334

== ENCOUNTER 2023-06-23 12:30 | Outpatient (RCR) | payer MEDICARE, OTHER, SELFPAY ==
[2022-01-22 15:13] VITALS: BMI 29.4
--- NOTE | 2023-01-20 16:10 | HP.PTEVAL_ITS ---
Patient's Visit Information Visit Information Visit Information: ROWENA GUAMAN is a 77 year old F referred to Physical Therapy by Dr. Lawanda Gracia DPM with a diagnosis of Unstable Gait. Date of Evaluation: 01/20/23 Physical Therapist: Jackie Mayer DPT Visit Plan Frequency: 2x /Week Duration: 4 Weeks Plan: Proprioception- VOR with vertical head turns- core strength/stabilization HEP Given IE: SLS, hip abduction and sit to stand Subjective Subjective: Patient reports she saw Dr. Gracia in 2016- with no major difficulty- fast forward- she had back issues- since she had breast cancer 2019- had cancer 2020- and has been insanity- and has not been able to take care of herself- she saw her last week- can't feel from arch forward- she is experiencing foot discomfort- when she gets up in the AM or if she has been stationary- she feels the bottom of the foot if a rock- and her gait is off- and she feels unstable. Dr. Gracia would like to get her into gait therapy and to get in touch with her spine surgeon. The last time she saw her spine surgeon was 2018 or 2019- L5-S1 ruptured disc with discectomy and then T12-L1 fracture- no surgical procedure for the fractures- REST- saw a hip specialist. But she is here for her feet. She can even be laying in bed and feel like someone is stabbing her feet with big hot needles. She does sometimes feel wobbly- and that she is drifting. She has not had any falls or near falls- she does not use an AD. She is often barefoot unless she is outside- if she is in the backyard she is in crocs- when she is in the community she is in Asics- She has had three surgeries on her left foot. She has orthotics but does not wear them. Does not feel that she goes backwards. Feels more stable barefoot. She has achy pain when she has natural pressure on the achilles insertion. Objective Objective: Posture: FH, RS- can correct with verbal cues but does not maintain Gait: no deviation noted with straight forward ambulation. VOR horizontal- slight deviations outside base of support- VOR vertical- moderate deviations outside of base of support. Slow to Fast: does not increase speed. 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 Backwards Walking: hesitant but able Balance: without shoes on foam- pt LOB backwards ROM: WFL in all planes Strength: Core: fair, Hip: 4/5 throughout, Knee: 4+/5, Ankle: 5/5 Girth: Calf: Left: 40.5 Right: 37.5 Flex: HS: moderate, Gastroc: moderate Balance/Special Test Scores Functional Gait Assessment Score: 18 % Disability: 40.0000 CATSIB Score (Max score 120 seconds): 90 Lower Extremity Functional Score: 52 Goals Goal 1:: Patient will be I with HEP and progression Goal Time Frame: 4-6 Weeks Goal 2:: Patient will SLS for 15 sec without LOB Goal Time Frame: 4-6 Weeks Goal 3:: Patient will increase FGA by 5 points Goal Time Frame: 4-6 Weeks Goal 4:: Patient will report 80% improvement Goal Time Frame: 4-6 Weeks Goal 5:: Patient will maintain proper posture t/o tx session to demo increased core s/s Goal Time Frame: 4-6 Weeks Rehabilitation Potential Physical Therapy Diagnosis: Patient presents with hypomobility- she has decreased proprioception, flex, core strength/stabilization and muscular endurance leading to poor posture, balance and decreased ability to perform ADL's. Rehabilitation Potential: Good Anticipated Interventions Patient/Client Instruction: Educate patient on: Benefits of Fitness Program Therapeutic Exercise to Include: Strength training, Endurance training, Balance training, Coordination, Agility training, Body mechanics, Postural training, Flexibilty training, Gait and locomotor training, Neuromotor development, Dynamic Lumbar Stabilization and Scapular Strength/Stabilization Functional Training to Include: Gait training Text: Thank you for the opportunity to evaluate your patient. For Medicare and Medicare HMO plans, please review the plan of care and approve it. It will need to be FAXED BACK to us at [phone] for Medicare purposes. For Medicare only, by signing this I certify the plan of care. Please let me know if there are questions or concerns regarding this plan of care. Physician Signature: Date:
--- NOTE | 2023-02-18 10:34 | HP.PTREVAL_ITS ---
Re-Evaluation Intro: Dr. Lawanda Gracia, DPM, It has been my pleasure to treat ROWENA GUAMAN over the last 8 visits for Unstable Gait. Please see the progress note below for an update on the physical therapy plan of care! Subjective Subjective: She is acutely aware of some of her balance deficits and she went to see her spine surgeon. She is scheduled for a EMG and an MRI on the 01 of March. She has a new script for PT to continue. Objective Objective/Function: Posture: FH, RS- can correct with verbal cues but does not maintain Gait: no deviation noted with straight forward ambulation. VOR horizontal- sli ght deviations outside base of support- VOR vertical- moderate deviations outside of base of support mostly when stopping. Slow to Fast: does not increase speed. HR/TR: able with UE A SLS: 12 seconds does have increased veneer stock layer with toes bilateral with shoes. Backwards Walking: hesitant but able Balance: without shoes on foam- pt LOB backwards ROM: WFL in all planes Strength: Core: fair, Hip: 4/5 throughout, Knee: 4+/5, Ankle: 5/5 Flex: HS: moderate, Gastroc: moderate Plan Plan Plan: 02/18/23: 2x2 weeks of 60 min apts with 30 min of gym program of machines for Indep HEP with silver sneakers and 30 min of the previous plan of care exercises to progress towards current goals. Proprioception- VOR with vertical head turns- core strength/stabilization HEP Given IE: SLS, hip abduction and sit to stand Balance/Gait/Functional tests Balance/Special Test Scores Functional Gait Assessment Score: 21 % Disability: 30.0000 CATSIB Score (Max score 120 seconds): 95 Lower Extremity Functional Score: 34 Goals Goals Goal 1:: Patient will be I with HEP and progression Goal Time Frame: 4-6 Weeks Goal Progress: Progressing Goal 2:: Patient will SLS for 15 sec without LOB Goal Time Frame: 4-6 Weeks Goal Progress: Progressing Goal 3:: Patient will increase FGA by 5 points Goal Time Frame: 4-6 Weeks Goal Progress: Progressing Goal 4:: Patient will report 80% improvement Goal Time Frame: 4-6 Weeks Goal Progress: Progressing Goal 5:: Patient will maintain proper posture t/o tx session to demo increased core s/s Goal Time Frame: 4-6 Weeks Goal Progress: Progressing Anticipated Interventions Anticipated Interventions Patient/Client Instruction: Educate patient on: Benefits of Fitness Program Therapeutic Exercise to Include: Strength training, Endurance training, Balance training, Coordination, Agility training, Body mechanics, Postural training, Fl exibilty training, Gait and locomotor training, Neuromotor development, Dynamic Lumbar Stabilization and Scapular Strength/Stabilization Functional Training to Include: Gait training Re-Evaluation Ending Re-evaluation ending: Please do not hesitate to contact me at [phone] by phone or if you have questions or concerns regarding this new plan of care! Sincerely, AMANDA BaptisteT
--- NOTE | 2023-04-26 10:45 | HP.PTREVAL_ITS ---
Re-Evaluation Intro: Dr. Lawanda Gracia, DPM, It has been my pleasure to treat ROWENA GUAMAN over the last 24 visits for Unstable Gait. Please see the progress note below for an update on the physical therapy plan of care! Subjective Subjective: Pt reports that her balance came on slowly. It began one morning that she had no feeling on the bottom of her feet from the arch to her toes. She went to her foot Dr and had decreased sensation. She went to her spine surg zoey and did some MRI and did some EMG testing and confirmed there is a neuropathy problem. She went to a neurologist and she is getting blood work done. She reports that turning 45 to 90 degrees her balance will be off. Pt signed up for [employer] [employer] at then beginning of year. Pt can no easily support her weight on the R hip. Objective Objective/Function: SLB 3 seconds B... FGA 22 Plan Plan Plan: Continue with balance activities and dual tasking with balance Balance/Gait/Functional tests Balance/Special Test Scores Functional Gait Assessment Score: 22 % Disability: 26.6700 CATSIB Score (Max score 120 seconds): 95 Lower Extremity Functional Score: 51 Goals Goals Goal 1:: Patient will be I with HEP and progression Goal Time Frame: 4-6 Weeks Goal Progress: Goal Met Goal 2:: Patient will SLS for 15 sec without LOB Goal Time Frame: 4-6 Weeks Goal Progress: Progressing Goal 3:: Patient will increase FGA by 5 points Goal Time Frame: 4-6 Weeks Goal Progress: Progressing Goal 4:: Patient will report 80% improvement Goal Time Frame: 4-6 Weeks Goal Progress: Progressing Goal 5:: Patient will maintain proper posture t/o tx session to demo increased core s/s Goal Time Frame: 4-6 Weeks Goal Progress: Progressing Anticipated Interventions Anticipated Interventions Patient/Client Instruction: Educate patient on: Benefits of Fitness Program Therapeutic Exercise to Include: Strength training, Endurance training, Balance training, Coordination, Agility training, Body mechanics, Postural training, Flexibilty training, Gait and locomotor training, Neuromotor development, Dynamic Lumbar Stabilization and Scapular Strength/Stabilization Functional Training to Include: Gait training Re-Evaluation Ending Re-evaluation ending: Please do not hesitate to contact me at [phone] by phone or if you have questions or concerns regarding this new plan of care! Sincerely, Lynn Callaway, MPT
== END 2023-06-23 19:00 | disposition home or self-care (01) ==
LOC: PT 12:30
PROVIDERS: PCP Internal Medicine; Referring Provider Podiatrist; Visit Provider Podiatrist
DX: R26.89 Other abnormalities of gait and mobility (principal)
CPT/HCPCS: 97110; 97162; 97164; 97530

== ENCOUNTER 2023-11-10 11:30 | Outpatient (RCR) | payer SELFPAY ==
[2023-07-12 13:01] VITALS: BMI 29.4
== END 2023-11-10 19:00 | disposition home or self-care (01) ==
LOC: PT 11:30
PROVIDERS: PCP Internal Medicine
DX: M54.9 Dorsalgia, unspecified (principal)

== ENCOUNTER → 2024-02-11 | Outpatient (CLI) | payer MEDICARE, OTHER, SELFPAY ==
[2023-07-12 13:01] VITALS: BMI 29.4
--- NOTE | 2024-02-11 15:52 | US_ITS ---
EXAM: US PELVIS TRANSVAGINAL CLINICAL INDICATION: POSTMENOPAUSAL BLEEDING TECHNIQUE: Transvaginal pelvic ultrasound was performed with grayscale and color Doppler imaging. The patient''s bladder was collapsed, transabdominal exam was not performed. COMPARISON: Abdomen pelvis CT August 05, 2021 showing bilateral tubal ligation clips and punctate calcifications, predominantly around the uterus. FINDINGS: UTERUS/CERVIX: 5.4 cm x 2.9 cm x 3.4 cm atrophic retroflexed uterus. Multiple small echogenic calcifications in the uterine myometrium. 2.6-3.3 mm echogenic fundal endometrium measurements. Smooth endometrial margins. RIGHT OVARY: Unremarkable. 1.4 cm x 1.1 cm x 1.2 cm. Non-enlarged, normal echogenicity. Blood flow is present in the right ovary. LEFT OVARY: Unremarkable. 1.1 cm x 0.7 cm x 1.0 cm. Non-enlarged, normal echogenicity. Blood flow is present in the left ovary. FREE FLUID: None. BLADDER: Empty bladder which cannot be evaluated with this probe. US/Transvaginal Non- IMPRESSION: Thin and smooth endometrial stripe. Mildly heterogeneous and atrophic retroflexed uterus. No visible dominant or suspicious mass Electronically Signed: Carri Carroll MD at 2:28 EDT ,
== END | disposition home or self-care (01) ==
LOC: US 15:51
PROVIDERS: PCP Internal Medicine; Referring Provider Obstetrics & Gynecology Gynecology; Visit Provider Obstetrics & Gynecology Gynecology
DX: N95.0 Postmenopausal bleeding (principal)
CPT/HCPCS: 76830

== ENCOUNTER → 2024-03-02 | Outpatient (CLI) | payer MEDICARE, OTHER, SELFPAY ==
[2023-07-12 13:01] VITALS: BMI 29.4
--- NOTE | 2024-03-02 12:36 | MRI_ITS ---
INDICATION: NECK PAIN EXAMINATION: MRI - MR Spine Cervical W/O Contrast TECHNIQUE: Multiplanar and multisequence MR images of the cervical spine were performed. IV Contrast Dosage and Agent: None. COMPARISON: None. FINDINGS: VERTEBRAE: No acute fracture or pathologic marrow replacement. VERTEBRAL ALIGNMENT: 10 mm spondylolisthesis C4-5, 3 mm retrolisthesis C5-6, 2 mm spondylolisthesis C6-7, 2 mm spondylolisthesis C7-T1. There is preservation of the normal cervical lordosis. CERVICAL SPINAL CORD: Unremarkable in signal and morphology. C2/C3: Normal disc height and morphology. Normal spinal canal and neuroforamina. C3/C4: Loss of disc height. Spondylotic bar formation with mild bilateral foraminal stenosis. C4/C5: Loss of disc height. Spondylytic bar formation with mild right and moderate left foraminal stenosis. C5/C6: Loss of disc height. Spondylitic bar formation with mild central and moderate bilateral foraminal stenosis. C6/C7: Loss of disc height. Spondylitic bar formation with moderate bilateral foraminal stenosis. C7/T1: Normal disc height and morphology. Normal spinal canal and neuroforamina. NECK SOFT TISSUES: No prevertebral soft tissue swelling. There is no cervical adenopathy. MRI/Spine Cervical (Routine) IMPRESSION: Diffuse degenerative disc disease and cervical spondylosis with multilevel central and foraminal stenoses as above. Mild central stenosis at C5-6. Electronically Signed: Romel Sears MD at 19:24 EDT ,
== END | disposition home or self-care (01) ==
LOC: MRI 12:29
PROVIDERS: PCP Internal Medicine; Referring Provider Nurse Practitioner Family; Visit Provider Nurse Practitioner Family
DX: M54.12 Radiculopathy, cervical region (principal)
CPT/HCPCS: 72141

== ENCOUNTER 2024-05-08 11:30 | Outpatient (RCR) | payer MEDICARE, OTHER, SELFPAY ==
[2023-07-12 13:01] VITALS: BMI 29.4
== END 2024-05-08 19:00 | disposition home or self-care (01) ==
LOC: PT 11:30
PROVIDERS: PCP Internal Medicine
DX: Z00.00 Encounter for general adult medical examination without abnormal findings (principal)

== ENCOUNTER → 2025-01-28 | Outpatient (CLI) | payer MEDICARE, OTHER, SELFPAY ==
[2023-07-12 13:01] VITALS: BMI 29.4
== END | disposition home or self-care (01) ==
PROVIDERS: PCP Internal Medicine; Referring Provider Nurse Practitioner Family; Visit Provider Nurse Practitioner Family
DX: R30.0 Dysuria (principal)
CPT/HCPCS: 87077; 87086; 87088; 87186

== ENCOUNTER 2025-02-27 12:55 | Outpatient (RCR) | payer SELFPAY ==
[2023-07-12 13:01] VITALS: BMI 29.4
== END 2025-02-27 19:00 | disposition home or self-care (01) ==
LOC: PT 12:55
PROVIDERS: PCP Internal Medicine
DX: Z00.00 Encounter for general adult medical examination without abnormal findings (principal)